=== PATIENT | male | born 1950 | race African-American/Black ===

== ENCOUNTER 2020-10-18 08:25 | Outpatient (REF) | payer BC, SELFPAY ==
[2020-10-18 09:05] LABS: MANUAL DIFF FLAG NO
[2020-10-18 09:08] LABS: Basophils Percent Auto 0.5 % (0-2); Eosinophils Absolute Auto 0.1 X10*3/uL (0.0-0.4); Eosinophils Percent Auto 3.5 % (0-4); Hematocrit 36.5 % (42-52); Imm Gran Abs Auto 0.01 X10*3/uL (0.00-0.03); Imm Gran Pct Auto 0.3 % (0.0-0.4); Lymphocytes Absolute Auto 1.3 X10*3/uL (1.2-4.9); Lymphocytes Percent Auto 35.3 % (20-40); Mean Corpuscular HGB Conc 32.9 g/dl (31.0-36.0); Mean Corpuscular Volume 94.3 fL (80-98); Mean Platelet Volume 12.1 fL (9.4-12.4); Monocytes Absolute Auto 0.3 X10*3/uL (0.1-1.2); Monocytes Percent Auto 7.9 % (2-11); Neutrophils Absolute Auto 1.9 X10*3/uL (2.0-8.3); Neutrophils Percent Auto 52.5 % (45-73); Platelet Count 128 X10*3/uL (160-400); Red Blood Count 3.87 X10*6/uL (4.60-5.80); Red Cell Distribution Width 12.3 % (11.0-16.0); White Blood Count 3.7 X10*3/uL (4.8-10.8)
[2020-10-18 09:37] LABS: Alanine Aminotransferase 16 U/L (0-40); Albumin Level 4.6 g/dL (3.5-5.0); Alkaline Phosphatase 50 U/L (39-117); Anion Gap 12 (12-20); Aspartate Amino Transferase 23 U/L (5-37); Bilirubin Total 0.5 mg/dL (0.0-1.0); Blood Urea Nitrogen 18 mg/dL (9-16); Calcium 8.8 mg/dL (8.4-10.2); Carbon Dioxide 29 mmol/L (22-29); Chloride 105 mmol/L (96-108); Cholesterol 140 mg/dL; Estimated Glomerular Filt Rate 52; Glucose Fasting 97 mg/dL (60-99); HDL Cholesterol 61 mg/dL; LDL Cholesterol Calculated 69 mg/dl; Potassium 5.2 mmol/l (3.3-5.1); Sodium 141 mmol/L (135-145); Total Protein 7.2 g/dL (6.5-8.0); Triglycerides 51 mg/dL
[2020-10-18 09:52] LABS: Erythrocyte Sedimentation Rate 18 MM/HR (0-15)
[2020-10-18 09:55] LABS: Glucose Urine UA NEG (NEG); Leukocyte Esterase Urine NEG (NEG); Nitrite Urine NEG (NEG); Urine Blood 1+ (NEG); Urine Ketones NEG (NEG); Urine Protein NEG (NEG-TRACE)
[2020-10-18 09:58] LABS: Appearance Urine CLEAR; Color Urine YELLOW
[2020-10-18 10:41] LABS: WBC Urine 0 /HPF (0-4)
[2020-10-18 10:42] LABS: Squamous Epithelial Cell Urine 1+ /LPF
== END 2020-10-18 08:26 | disposition home or self-care (01) ==
LOC: HO.LAB 08:25
PROVIDERS: PCP Internal Medicine; Visit Provider Internal Medicine
DX: E78.5 Hyperlipidemia, unspecified (principal); D61.818 Other pancytopenia; M16.0 Bilateral primary osteoarthritis of hip; K21.9 Gastro-esophageal reflux disease without esophagitis
CPT/HCPCS: 36415; 80053; 80061; 81001; 85025; 85652

== ENCOUNTER → 2021-01-09 08:19 | Outpatient (BNVA) | payer BC, SELFPAY | PROVIDERS: Visit Provider Orthopaedic Surgery ==

== ENCOUNTER → 2021-02-20 09:51 | Outpatient (BNVA) | payer BC, SELFPAY | PROVIDERS: PCP Internal Medicine; Visit Provider Orthopaedic Surgery | DX: Z01.812 Encounter for preprocedural laboratory examination (principal); Z01.810 Encounter for preprocedural cardiovascular examination ==

== ENCOUNTER 2021-02-23 08:19 | Outpatient (REF) | payer BC, SELFPAY ==
--- NOTE | 2021-02-23 08:26 | ECG_ITS ---
Test Reason : Z01.810 PREOP Blood Pressure : / mmHG Vent. Rate : 061 BPM Atrial Rate : 061 BPM P-R Int : 158 ms QRS Dur : 086 ms QT Int : 404 ms P-R-T Axes : 069 015 050 degrees QTc Int : 406 ms Normal sinus rhythm ST elevation, consider early repolarization Otherwise normal EKG When compared with ECG of 17-FEB-2014 09:40, No significant changes seen Referred By: Yogesh Stevens Electronically Signed By:CHRISTIAN GALLAGHER
[2021-02-23 10:07] LABS: MANUAL DIFF FLAG NO
[2021-02-23 10:21] LABS: Basophils Percent Auto 0.5 % (0-2); Eosinophils Absolute Auto 0.2 X10*3/uL (0.0-0.4); Eosinophils Percent Auto 4.7 % (0-4); Hematocrit 35.4 % (42-52); Hemoglobin 11.7 g/dl (14.0-18.0); Imm Gran Abs Auto 0.01 X10*3/uL (0.00-0.03); Imm Gran Pct Auto 0.3 % (0.0-0.4); Lymphocytes Absolute Auto 1.5 X10*3/uL (1.2-4.9); Lymphocytes Percent Auto 41.4 % (20-40); Mean Corpuscular HGB Conc 33.1 g/dl (31.0-36.0); Mean Corpuscular Hemoglobin 30.9 pg (27.0-33.0); Mean Corpuscular Volume 93.4 fL (80-98); Monocytes Absolute Auto 0.3 X10*3/uL (0.1-1.2); Monocytes Percent Auto 8.8 % (2-11); Neutrophils Absolute Auto 1.6 X10*3/uL (2.0-8.3); Neutrophils Percent Auto 44.3 % (45-73); Platelet Count 115 X10*3/uL (160-400); Red Blood Count 3.79 X10*6/uL (4.60-5.80); Red Cell Distribution Width 12.3 % (11.0-16.0); White Blood Count 3.7 X10*3/uL (4.8-10.8)
[2021-02-23 10:56] LABS: Alanine Aminotransferase 20 U/L (0-40); Albumin Level 4.3 g/dL (3.5-5.0); Alkaline Phosphatase 48 U/L (39-117); Anion Gap 14 (12-20); Aspartate Amino Transferase 25 U/L (5-37); Bilirubin Total 0.7 mg/dL (0.0-1.0); Blood Urea Nitrogen 13 mg/dL (9-16); Calcium 8.5 mg/dL (8.4-10.2); Carbon Dioxide 28 mmol/L (22-29); Chloride 104 mmol/L (96-108); Cholesterol 120 mg/dL; Estimated Glomerular Filt Rate 60; Glucose Fasting 93 mg/dL (60-99); HDL Cholesterol 51 mg/dL; LDL Cholesterol Calculated 56 mg/dl; Lipase 13 U/L (8-78); Potassium 4.2 mmol/L (3.3-5.1); Sodium 142 mmol/L (135-145); Total Protein 6.9 g/dL (6.5-8.0); Triglycerides 68 mg/dL
== END 2021-02-23 08:20 | disposition home or self-care (01) ==
LOC: HO.LAB 08:19
PROVIDERS: Absent Provider Orthopaedic Surgery; PCP Internal Medicine; Visit Provider Internal Medicine
DX: Z01.812 Encounter for preprocedural laboratory examination (principal); Z01.810 Encounter for preprocedural cardiovascular examination; E78.00 Pure hypercholesterolemia, unspecified; I10 Essential (primary) hypertension; G89.29 Other chronic pain; R10.84 Generalized abdominal pain; D61.818 Other pancytopenia; I25.118 Atherosclerotic heart disease of native coronary artery with other forms of angina pectoris; K21.9 Gastro-esophageal reflux disease without esophagitis
CPT/HCPCS: 36415; 80048; 80053; 80061; 83690; 83721; 84443; 85025; 93005

== ENCOUNTER 2021-02-24 11:40 | Outpatient (REF) | payer BC, SELFPAY ==
[2021-02-24 12:17] LABS: Glucose Urine UA NEG (NEG); Leukocyte Esterase Urine NEG (NEG); Nitrite Urine NEG (NEG); Urine Blood TRACE (NEG); Urine Ketones NEG (NEG); Urine Protein NEG (NEG-TRACE)
[2021-02-24 12:20] LABS: Appearance Urine CLEAR; Color Urine YELLOW
[2021-02-24 12:27] LABS: Squamous Epithelial Cell Urine TRACE /LPF; WBC Urine 0 /HPF (0-4)
== END 2021-02-24 11:41 | disposition home or self-care (01) ==
LOC: HO.LNP 11:40
PROVIDERS: Visit Provider Internal Medicine
DX: Z01.818 Encounter for other preprocedural examination (principal); D61.818 Other pancytopenia; I10 Essential (primary) hypertension; E78.5 Hyperlipidemia, unspecified; I25.10 Atherosclerotic heart disease of native coronary artery without angina pectoris; K21.9 Gastro-esophageal reflux disease without esophagitis
CPT/HCPCS: 81001; 81003

== ENCOUNTER 2021-03-13 12:33 | Outpatient (REF) | payer BC, SELFPAY ==
--- NOTE | ~2021-03-13 | XR_ITS ---
EXAMINATION: XR HIP, RIGHT CLINICAL INFORMATION: Bilateral primary osteoarthritis of hip COMPARISON: Pelvis 10/23/2019 TECHNIQUE: An AP view of the pelvis and AP and frog-lateral views of the right hip. FINDINGS: Mineralization is normal. There is no fracture or dislocation. There is severe joint space narrowing in the hip with mild deformity of the femoral head and flattening of the superior acetabulum. There is subchondral sclerosis and marginal osteophyte formation. No soft tissue abnormality is appreciated. The left hip joint space is relatively preserved. XR/XR hip RT w PEL1V IMPRESSION: Advanced degenerative arthritis in the right hip appears stable.
== END 2021-03-13 12:34 | disposition home or self-care (01) ==
LOC: HO.HOSX 12:33
PROVIDERS: PCP Internal Medicine; Visit Provider Physician Assistant
DX: Z01.812 Encounter for preprocedural laboratory examination (principal); M16.0 Bilateral primary osteoarthritis of hip; M17.0 Bilateral primary osteoarthritis of knee; E78.00 Pure hypercholesterolemia, unspecified
CPT/HCPCS: 73502

== ENCOUNTER 2021-03-21 06:46 | Inpatient (IN) | payer BC, SELFPAY ==
--- NOTE | 2021-03-07 11:57 | HO.ANESPROP2 ---
Documented by User: Judi Garcia 03/17/21 08:26 HPI - Anesthesia Eval Consult details Narrative: 70yo M for Right Hip Total Replacement PCP Cleared Cardiac cleared BP up at [facility] - pt was rushing to make appointment. All previous BP readings wnl Recent tick bite with abx tx, repeat Lyme preop was negative PMFSH Active Problems Active Problems: All Active Problems (Updated 03/06/21 @ 09:51 by Kingsley Villar MD) Tinea pedis (Acute) Tick bite (Acute) Preoperative examination (Acute) Chronic generalized abdominal pain (Acute) Tinnitus, bilateral (Acute) Primary osteoarthritis of knees, bilateral (Acute) Primary osteoarthritis of both hips (Acute) Pancytopenia (Acute) GERD without esophagitis (Acute) Pure hypercholesterolemia (Acute) Benign essential hypertension (Acute) Coronary artery disease (Acute) Past Medical History Medical History Benign essential hypertension Chronic generalized abdominal pain Coronary artery disease COVID-19 vaccine series completed GERD without esophagitis Pancytopenia Primary osteoarthritis of both hips Primary osteoarthritis of knees, bilateral Pure hypercholesterolemia Tick bite of foot Tinnitus, bilateral Family History Family History Father No problems noted. Mother No problems noted. Surgical History Surgical History History of cardiac catheterization History of esophagogastroduodenoscopy (EGD) Hx of colonoscopy S/P cardiac catheterization S/P right coronary artery (RCA) stent placement Social History Social History Are you a primary career technology teacher to a significant other at home: No Do you presently have visiting nurse or other home services: No Alcohol intake: never Patient Tobacco Use Status: Never used Tobacco Use of substances other than those prescribed or required for medical reasons: No Have you been hit, kicked, punched, or otherwise hurt by someone within the past year? If so, by whom?: No Are you DNR?: No Advance Directives: No Advance Directives Information Provided: No Advance Directives on File: No Recently lost weight without trying: No Eating poorly because of decreased appetite: No Nutrition Risks: No Nutritional Risk Poor oral hygiene: No Narrative Narrative: No recent illness No SOB/CP within limits of pain. Meds Allergies Allergy/AdvReac Type Severity Reaction Status Date / Time No Known Allergies Allergy Unknown U Verified 03/13/21 12:35 Home Medications Medication Instructions Recorded Confirmed Last Taken Type aspirin 81 mg tablet,delayed 81 mg PO DAILY 02/06/21 03/07/21 Unknown History release isosorbide mononitrate 120 mg 120 mg PO DAILY 02/06/21 03/07/21 Unknown History tablet,extended release 24 hr Exam Exam Date and Time: March 07, 2021 1157 Pertinent Lab Results Pertinent Lab Results: Laboratory Tests 02/23/21 02/23/21 Unknown Unknown WBC 3.7 L Hgb 11.7 L Hct 35.4 L Plt Count 115 L Sodium 142 Potassium 4.2 Chloride 104 Carbon Dioxide 28 BUN 13 Creatinine 1.20 Laboratory Tests 03/13/21 03/13/21 13:30 13:30 Lyme Screen IgG & IgM <0.90 Blood Type O Positive Antibody Screen NEGATIVE Narrative Narrative: EKG 02/2021 Vent. Rate : 061 BPM Atrial Rate : 061 BPM P-R Int : 158 ms QRS Dur : 086 ms QT Int : 404 ms P-R-T Axes : 069 015 050 degrees QTc Int : 406 ms Normal sinus rhythm ST elevation, consider early repolarization Otherwise normal EKG When compared with ECG of 17-FEB-2014 09:40, No significant changes seen Repeat cardiac cath done on 12/26/2020 by [facility] Cardiology showed minimal coronary disease of the RCA that is unchanged from his previous cath done in 2011 and the diagonal stent inserted previously remains widely patent. Was recommended to continue with lifelong low dose Aspirin Tx and aggressive risk factor modification and advised Airway Mallampati Class: I TM Dist: >3cm Neck ROM: Full Loose/Missing/Broken Teeth: Yes (Right lower side missing) Heart: RRR Lungs: CTAB Assessment and Plan Assessment Anesthesia Assessment: Anesthesia Plan Discussed and PAT Visit Documented by User: Caden Little MD 03/21/21 07:31 [facility] Past Medical History Medical History Benign essential hypertension Chronic generalized abdominal pain Coronary artery disease COVID-19 vaccine series completed GERD without esophagitis Pancytopenia Primary osteoarthritis of both hips Primary osteoarthritis of knees, bilateral Pure hypercholesterolemia Tick bite of foot Tinnitus, bilateral Family History Family History Father No problems noted. Mother No problems noted. Surgical History Surgical History History of cardiac catheterization History of esophagogastroduodenoscopy (EGD) Hx of colonoscopy S/P cardiac catheterization S/P right coronary artery (RCA) stent placement Social History Social History Are you a primary career technology teacher to a significant other at home: No Do you presently have visiting nurse or other home services: No Alcohol intake: never Patient Tobacco Use Status: Never used Tobacco Use of substances other than those prescribed or required for medical reasons: No Have you been hit, kicked, punched, or otherwise hurt by someone within the past year? If so, by whom?: No Are you DNR?: No Advance Directives: No Advance Directives Information Provided: No Advance Directives on File: No Recently lost weight without trying: No Eating poorly because of decreased appetite: No Nutrition Risks: No Nutritional Risk Poor oral hygiene: No Meds Allergies Allergy/AdvReac Type Severity Reaction Status Date / Time No Known Allergies Allergy Unknown U Verified 03/13/21 12:35 Home Medications Medication Instructions Recorded Confirmed Last Taken Type aspirin 81 mg tablet,delayed 81 mg PO DAILY 02/06/21 03/07/21 Unknown History release isosorbide mononitrate 120 mg 120 mg PO DAILY 02/06/21 03/07/21 Unknown History tablet,extended release 24 hr Assessment and Plan Assessment Anesthesia Assessment: Anesthesia Plan Discussed and Chart Reviewed Final Anesthetic Review NPO: Yes ASA Class: III Final Preanesthetic Review: No Changes in Pt Med Stat, Meds/Allgs Chart Reviewed, Consent Obtained/Reviewed and Anes Risks/Benef Reviewed Patient Risk: Intermediate Procedure Risk: Intermediate Anesthetic Plan Anesthetic Plan: GA Disposition: Standard PACU
[2021-03-07 11:58] VITALS: BP 179/81; PULSE 56; RESP 20; BMI 25.5
[2021-03-08 08:50] LABS: MRSA Nasal PCR NEGATIVE (Negative); SA Nasal PCR NEGATIVE (Negative)
[2021-03-13 14:27] LABS: Glucose Urine UA NEG (NEG); Leukocyte Esterase Urine NEG (NEG); Nitrite Urine NEG (NEG); Specific Gravity - Urine <= 1.005 (1.005-1.025); Urine Blood 1+ (NEG); Urine Ketones NEG (NEG); Urine Protein NEG (NEG-TRACE)
[2021-03-13 14:35] LABS: Appearance Urine CLEAR; Color Urine YELLOW
[2021-03-13 14:36] LABS: MANUAL DIFF FLAG NO
[2021-03-13 14:37] LABS: Squamous Epithelial Cell Urine TRACE /LPF; WBC Urine 0-2 /HPF (0-4)
[2021-03-13 14:45] LABS: Basophils Percent Auto 0.3 % (0-2); Eosinophils Absolute Auto 0.1 X10*3/uL (0.0-0.4); Eosinophils Percent Auto 2.1 % (0-4); Hematocrit 34.8 % (42-52); Hemoglobin 11.8 g/dl (14.0-18.0); Imm Gran Abs Auto 0.02 X10*3/uL (0.00-0.03); Imm Gran Pct Auto 0.5 % (0.0-0.4); Lymphocytes Absolute Auto 1.5 X10*3/uL (1.2-4.9); Lymphocytes Percent Auto 40.4 % (20-40); Mean Corpuscular HGB Conc 33.9 g/dl (31.0-36.0); Mean Corpuscular Hemoglobin 31.5 pg (27.0-33.0); Mean Corpuscular Volume 92.8 fL (80-98); Mean Platelet Volume 12.8 fL (9.4-12.4); Monocytes Absolute Auto 0.3 X10*3/uL (0.1-1.2); Monocytes Percent Auto 8.3 % (2-11); Neutrophils Absolute Auto 1.8 X10*3/uL (2.0-8.3); Neutrophils Percent Auto 48.4 % (45-73); Platelet Count 161 X10*3/uL (160-400); Red Blood Count 3.75 X10*6/uL (4.60-5.80); Red Cell Distribution Width 12.5 % (11.0-16.0); White Blood Count 3.7 X10*3/uL (4.8-10.8)
[2021-03-15 07:01] LABS: Lyme Abs Screen <0.90 index
[2021-03-21] VITALS (20 sets, daily range): BP systolic 115–155; BP diastolic 53–79; PULSE 50–84; RESP 12–18; TEMP 36.2–36.6; O2SAT 97–100
--- NOTE | ~2021-03-21 | XR_ITS ---
EXAMINATION: XR PELVIS CLINICAL INFORMATION: Post right hip replacement COMPARISON: Previous x-ray 03/13/2021 TECHNIQUE: AP view of the pelvis. FINDINGS: There is a new right hip replacement in satisfactory position. No fracture or dislocation is seen. There are postoperative changes to the soft tissues. There is mild arthritis at the left hip joint and lower lumbar spine. XR/XR pelvis 1-2V IMPRESSION: Satisfactory appearance of right hip replacement..
[2021-03-21 06:53] LABS: COVID-19 Test Negative (Negative)
[2021-03-21] MEDS: Gabapentin 600 MG TABLET PO (06:56)
[2021-03-21] MEDS: oxyCODONE HCl ER 10 MG TAB.ER.12H PO ×2 (06:57→20:14)
[2021-03-21] MEDS: Lactated Ringers 1,000 ML 100 ML IVCONT (06:59)
--- NOTE | 2021-03-21 07:20 | MHC.SHP ---
Pre-Procedural Eval Section A The patient is an INPATIENT: No Changes since office visit: Yes Patient answered all questions; No Cold of Flu in the past 2 weeks, No New Medical Problems and No Changes in Medication The History & Physical has been completed within 30 days and I have reviewed it.: Yes Section B Chief Complaint: hip replacement Allergies: Allergies Allergy/AdvReac Type Severity Reaction Status Date / Time No Known Allergies Allergy Unknown U Verified 03/13/21 12:35 Plan I have reviewed the history and physical and performed a pertinent physical examination on my patient. No changes have occurred unless specified.
--- NOTE | 2021-03-21 09:57 | P.OP_ITS ---
Operative Note Operative Note Date of Service: 03/21/21 Narrative: Pre-op diagnosis: right hip OA Post-op diagnosis: same Procedure: right GT Implants: Darci trident2 52 with 20 deg lipped liner with accolade2#4 127 deg with .2.5 26 ceramic head Surgeon: Yogesh Stevens MD Anesthesia: GETA Was an Lead Sustainability Specialist used for this Procedure?: Yes Lead Sustainability Specialist: Johnathan Phipps Estimated blood loss (mL): 200 IV fluids (mL): 1,000 Pathology: other Condition: stable Disposition: PACU Attending MD: Yogesh Stevens Lead Sustainability Specialist: MARISOL Phipps Pre-operative disgnosis: Left hip OA Post op diagnosis: same Procedure performed; Left GT Anesthesia: Blood loss: Fluids: Implants: Complications: Indications: Procedure in detail: Patient was brought into the operating room and placed in a left lateral decubitus position. All bony prominences were well padded and the limb was prepped and draped in standard sterile fashion. Time-out was called to identify proper site procedure proper surgeon IV antibiotics and 1 g of trans to make acid were administered. I began by making a curvilinear incision over the p osterolateral aspect of the greater trochanter. Dissection was taken down to the tensor fascia which was incised in line with the incision and a Charnley retractor was placed. Hip was internally rotated and the external rotators were identified. The vessels were cauterized and a full-thickness capsular/external rotator layer was developed starting just proximal to the piriformis. Dull Hohmann retractor was placed underneath the neck in the hip was dislocated. The head was eburnated and deformed. A neck cut was made 1 cm proximal to the lesser trochanter and the head and neck were removed and measured on the back table. Placed my anterior-posterior acetabular retractors and performed a labrectomy. I removed the fovea with cautery and then sequentially reamed up to a size __52_ and impacted the cup in at 45 degrees of inclination and 25 degrees of version. It was solidly fixed. I then placed a 20 degree posterior lipped liner and turned my attention to the femur. All I used cautery to identify the piriformis start site and used this as a starting point for my jaydenie cutter. I then used a Charnley awl to identify the canal and a curved curette to remove the lateral bone. I then sequentially broached in the patient's natural version to a size __#4__ and placed my trial implants. I took the hip through range of motion with a +0 and + 2.5 head and the hip was stable with appropriate length. Therefore I removed all instrumentation copiously irrigated and placed my final femoral implant. I again took the hip through range of motion and was satisfied with the stability and length and rain using a +2.5 head and so my final femoral head was placed. I then irrigated for 3 minutes with iodine and placed 1 g of local TXA. I then performed a capsular closure with FiberWire, Misael's fascia with 0 Vicryl, subcuticular with 2-0 vicryl and skin with ariel. Patient was placed into a sterile dressing. Radiographs were obtained at the completion of the case and I was satisfied with the component position. Patient was extubated brought to the recovery room in stable condition.
--- NOTE | 2021-03-21 12:47 | P.CONIM_ITS ---
History of Present Illness Data of Consult Service Date: 03/21/21 Requesting physician: Yogesh Stevens Primary Care Provider: Kingsley Villar MD [facility] Reason for consult: medical management 70-year-old man admitted by Orthopedic surgery and is status post left total knee arthroplasty. Surgery was unremarkable. Patient's vital signs are stable. Eating and drinking without any nausea or vomiting. He has no acute medical complaints time. He is currently resting in bed. Review of Systems Review of Systems: Denies any recent fever chills or decrease in appetite respiratory denies any shortness of breath coverage production cardiovascular is adjustment of any PND or edema gastrointestinal denies any dysphagia abdominal pain nausea vomiting or diarrhea genitourinary denies any dysuria frequency or hematuria musculoskeletal Left hip pain neuropsych denies any weakness or seizures all other systems reviewed are negative [facility] Medical History Benign essential hypertension Chronic generalized abdominal pain Coronary artery disease COVID-19 vaccine series completed GERD without esophagitis Pancytopenia Primary osteoarthritis of both hips Primary osteoarthritis of knees, bilateral Pure hypercholesterolemia Tick bite of foot Tinnitus, bilateral Family History Father No problems noted. Mother No problems noted. Surgical History History of cardiac catheterization History of esophagogastroduodenoscopy (EGD) Hx of colonoscopy S/P cardiac catheterization S/P right coronary artery (RCA) stent placement Social History Household Members: Spouse Housing: House Are you a primary healthcare recruiter to a significant other at home: No Do you presently have visiting nurse or other home services: No Alcohol intake: never Patient Tobacco Use Status: Never used Tobacco Use of substances other than those prescribed or required for medical reasons: No Have you been hit, kicked, punched, or otherwise hurt by someone within the past year? If so, by whom?: No Do you feel safe in your current relationship?: Yes Is there a partner from a previous relationship who is making you feel unsafe n ow?: No Are you made to feel afraid or neglected: No Are you DNR?: No Advance Directives: No Advance Directives Information Provided: No Advance Directives on File: No Do you have thoughts of harming others: None Do you have a plan to hurt others: No Plan Recently lost weight without trying: No Eating poorly because of decreased appetite: No Nutrition Risks: No Nutritional Risk Poor oral hygiene: No Meds Allergies Allergy/AdvReac Type Severity Reaction Status Date / Time No Known Allergies Allergy Unknown U Verified 03/13/21 12:35 Active Medications: Current Medications Generic Name Dose Route Start Last Admin Trade Name Freq PRN Reason Stop Dose Admin Acetaminophen 650 mg 03/21/21 11:46 Acetaminophen 325 Mg Tablet PO Q6H PRN Pain, Mild (Pain Scale 1-3) Celecoxib 200 mg 03/21/21 21:00 Celecoxib 200 Mg Capsule PO BID [facility] Docusate Sodium 100 mg 03/21/21 21:00 Docusate Sodium 100 Mg Capsule PO BID [facility] Hydromorphone HCl 0.25 mg 03/21/21 11:46 Hydromorphone Hcl 0.5 Mg/0.5 Ml Syringe IVPUSH Q4H PRN Pain, Severe (Pain Scale 7-10) Dextrose/Sodium Chloride 1,000 mls @ 80 mls/hr 03/21/21 12:00 D51/2ns IVCONT .[id number] [facility] Cefazolin Sodium/Dextrose 2 gm in 50 mls @ 100 mls/hr 03/21/21 14:00 Ancef IV 03/21/21 14:29 POSTOP ONE Naloxone HCl 0.2 mg 03/21/21 11:46 Naloxone Hcl 0.4 Mg/Ml Vial IVPUSH Q2M PRN Excessive sedation or RR < 8 Oxycodone HCl 5 mg 03/21/21 11:46 Oxycodone Hcl Immed Release 5 Mg Tablet PO Q4H PRN Pain, Moderate (Pain Scale 4-6 Oxycodone HCl 10 mg 03/21/21 21:00 Oxycodone Hcl Er 10 Mg Tab.Er.12h PO BID [facility] Sodium Chloride 3 ml 03/21/21 16:00 0.9 % Sodium Chloride Flush 3 Ml Syringe IVFLUSH QSHIFT [facility] Home Medications Medication Instructions Recorded Confirmed Last Taken Type aspirin 81 mg tablet,delayed 81 mg PO DAILY 02/06/21 03/07/21 Unknown History release isosorbide mononitrate 120 mg 120 mg PO DAILY 02/06/21 03/07/21 Unknown History tablet,extended release 24 hr Physical Exam Vital Signs and Narrative: Vital Signs: Last Vital Signs Temp 97.4 F 03/21/21 11:46 Pulse 56 03/21/21 12:22 Resp 16 03/21/21 12:22 BP 126/72 03/21/21 12:22 Pulse Ox 100 03/21/21 12:22 Body Mass Index 25.5 Appearing in no acute distress head is normocephalic atraumatic eyes pupils are PERRLA sclera is anicteric mouth throat mucous membranes are intact and moist neck is supple no lymphadenopathy, no JVD noted lung sounds are clear to auscultation heart regular rate rhythm, clear S1, S2 positive bowel sounds, abdomen is soft, nontender neuro patient is alert x3, no focal deficits MSK surgical dressing intact, incision not visualized Results Labs CBC and Chem 7: 03/13/21 13:30 Labs: Laboratory Results - last 24 hr 03/21/21 06:16 COVID-19 (ANNIKA) Negative COVID-19 Clin Com See Note Imaging Radiologist's Impressions: Impressions Pelvis X-Ray 03/21/21 08:47 IMPRESSION: Satisfactory appearance of right hip replacement.. Assessment and Plan (1) Osteoarthritis of right hip: Status: Acute 70-year-old man admitted to Orthopedic surgery and is status post left total hip arthroplasty. NO acute medical complaints. Left total hip arthroplasty. -management as per surgical team -pain management Hypertension. Good BP control -Hold BB d/t bradycardia CAD -Hold BB for now with bradycardia post op DVT prophylaxis with as per surgical team Full code Attending: Dr. Summers
[2021-03-21] MEDS: Dextrose 5 % and 0.45 % NaCl 1,000 ML 80 ML IVCONT (12:55)
[2021-03-21] MEDS: ondansetron HCL 4 MG/2 ML VIAL IVPUSH (13:11)
[2021-03-21] MEDS: ceFAZolin Sodium/Dextrose,Iso 2 GM/50 ML PIGGYBACK IV (14:14)
--- NOTE | 2021-03-21 19:17 | PC.NURSE ---
Late entry: Pt to room via bed around 1200. Aquacell dressing to right hip CDI. minimal c/o pain to hip. Ice applied. tolerating po. at bedside. All needs in reach
[2021-03-21] MEDS: Docusate Sodium 100 MG CAPSULE PO (20:14)
[2021-03-21] MEDS: Celecoxib 200 MG CAPSULE PO (20:14)
[2021-03-21] MEDS: 0.9 % Sodium Chloride Flush 3 ML SYRINGE IVFLUSH (20:15)
[2021-03-21] MEDS: HYDROmorphone HCl 0.5 MG/0.5 ML SYRINGE 0.25 MG IVPUSH (21:55)
[2021-03-21] MEDS: Nitroglycerin 0.4 MG TAB.SUBL SUBLINGUAL (23:55)
[2021-03-22] VITALS (9 sets, daily range): BP systolic 104–150; BP diastolic 50–68; PULSE 62–82; RESP 15–20; TEMP 36–36.9; O2SAT 97–99
[2021-03-22] MEDS: Dextrose 5 % and 0.45 % NaCl 1,000 ML 80 ML IVCONT ×2 (02:53→14:52)
[2021-03-22 05:51] LABS: MANUAL DIFF FLAG NO
[2021-03-22 05:58] LABS: Hematocrit 29.3 % (42-52); Imm Gran Abs Auto 0.03 X10*3/uL (0.00-0.03); Imm Gran Pct Auto 0.4 % (0.0-0.4); Lymphocytes Absolute Auto 0.8 X10*3/uL (1.2-4.9); Mean Corpuscular HGB Conc 34.1 g/dl (31.0-36.0); Mean Corpuscular Hemoglobin 31.5 pg (27.0-33.0); Mean Corpuscular Volume 92.4 fL (80-98); Monocytes Absolute Auto 0.6 X10*3/uL (0.1-1.2); Monocytes Percent Auto 7.6 % (2-11); Neutrophils Absolute Auto 5.9 X10*3/uL (2.0-8.3); Platelet Count 122 X10*3/uL (160-400); Red Blood Count 3.17 X10*6/uL (4.60-5.80); Red Cell Distribution Width 12.4 % (11.0-16.0); White Blood Count 7.2 X10*3/uL (4.8-10.8)
[2021-03-22 06:21] LABS: Anion Gap 11 (12-20); Blood Urea Nitrogen 19 mg/dL (9-16); Calcium 8.5 mg/dL (8.4-10.2); Carbon Dioxide 31 mmol/L (22-29); Chloride 102 mmol/L (96-108); Creatinine Clr Calc Pharmacy 55.1; Estimated Glomerular Filt Rate 59; Glucose Fasting 122 mg/dL (60-99); Potassium 4.5 mmol/L (3.3-5.1); Sodium 139 mmol/L (135-145)
[2021-03-22] MEDS: oxyCODONE HCl Immed Release 5 MG TABLET PO (07:27)
--- NOTE | 2021-03-22 08:30 | P.PNOP_ITS ---
Subjective Subjective Date of Service: 03/22/21 Interval history: Postop day 1 status post right total hip arthroplasty No overnight events. Resting comfortably in bed. Has not been out of bed. Denies shortness of breath chest pain or palpitations. Physical Exam Vital Signs: Vital Signs: Last Vital Signs Temp 98.5 F 03/22/21 04:00 Pulse 73 03/22/21 08:13 Resp 16 03/22/21 04:00 BP 150/68 H 03/22/21 08:13 Pulse Ox 99 03/22/21 08:13 Body Mass Index 25.5 Const: General: cooperative, healthy appearing and no acute distress Resp: Effort & Inspection: normal respiratory effort and able to speak in complete sentences Cardio: Rate: regular rate Peripheral pulses: Peripheral pulses 2+ throughout GI: Palpation (GI): Soft to palpation Skin: General skin exam: no rashes or lesions noted Extrem: Other: Bandage clean dry and intact. No erythema or effusion. Calf supple nontender. Neurovascularly intact. Progress Note: A&P Assessment and plan (1) Status post total hip replacement, right: Status: Acute Assessment and Plan: * Continue pain mgmnt * Begin Aspirin for dvt ppx * begin PT for right GT posterior precautions * Dispo planning-Pending PT eval, pain mgmnt Fall Risk Details Current Medications: Current Medications Generic Name Dose Route Start Last Admin Trade Name Freq PRN Reason Stop Dose Admin Acetaminophen 650 mg 03/21/21 11:46 Acetaminophen 325 Mg Tablet PO Q6H PRN Pain, Mild (Pain Scale 1-3) Aspirin 325 mg 03/22/21 09:00 Aspirin 325 Mg Tablet PO BID [facility] Atorvastatin Calcium 80 mg 03/22/21 09:00 Atorvastatin Calcium 80 Mg Tablet PO DAILY ERIC Celecoxib 200 mg 03/21/21 21:00 03/21/21 20:14 Celecoxib 200 Mg Capsule PO 200 mg BID ERIC Administration Docusate Sodium 100 mg 03/21/21 21:00 03/21/21 20:14 Docusate Sodium 100 Mg Capsule PO 100 mg BID ERIC Administration Hydromorphone HCl 0.25 mg 03/21/21 11:46 03/21/21 21:55 Hydromorphone Hcl 0.5 Mg/0.5 Ml Syringe IVPUSH 0.25 mg Q4H PRN Administration Pain, Severe (Pain Scale 7-10) Dextrose/Sodium Chloride 1,000 mls @ 80 mls/hr 03/21/21 12:00 03/22/21 02:53 D51/2ns IVCONT 80 mls/hr .[id number] ERIC Administration Isosorbide Mononitrate 120 mg 03/22/21 09:00 Isosorbide Mononitrate 60 Mg Tab.Er.24h PO DAILY [facility] Protocol Naloxone HCl 0.2 mg 03/21/21 11:46 Naloxone Hcl 0.4 Mg/Ml Vial IVPUSH Q2M PRN Excessive sedation or RR < 8 Nitroglycerin 0.4 mg 03/21/21 17:01 03/21/21 23:55 Nitroglycerin 0.4 Mg Tab.Subl SUBLINGUAL 0.4 mg Q5M PRN Administration chest pain Nystatin/Triamcinolone Acetonide 1 appl 03/21/21 21:00 03/21/21 22:49 Nystatin/Triamcinolone Cream 15 Gm Tube TOPICAL Not Given BID [facility] Ondansetron HCl 4 mg 03/21/21 13:04 03/21/21 13:11 Ondansetron Hcl 4 Mg/2 Ml Vial IVPUSH 4 mg Q8H PRN Administration nausea Oxycodone HCl 5 mg 03/21/21 11:46 03/22/21 07:27 Oxycodone Hcl Immed Release 5 Mg Tablet PO 5 mg Q4H PRN Administration Pain, Moderate (Pain Scale 4-6 Oxycodone HCl 10 mg 03/21/21 21:00 03/21/21 20:14 Oxycodone Hcl Er 10 Mg Tab.Er.12h PO 10 mg BID ERIC Administration Sodium Chloride 3 ml 03/21/21 16:00 03/21/21 20:15 0.9 % Sodium Chloride Flush 3 Ml Syringe IVFLUSH 3 ml QSHIFT ERIC Administration Sodium Chloride 3 ml 03/21/21 16:00 03/22/21 01:48 0.9 % Sodium Chloride Flush 3 Ml Syringe IVFLUSH Not Given QSHIFT [facility] Time Spent With Patient Time: Total time spent is greater than 50% in coordination of care (as documented) at patient's floor/unit and/or counseling patient: Time with patient: less than 15 minutes Procedures Date of Service Date of Service: 03/22/21
[2021-03-22] MEDS: Aspirin 325 MG TABLET PO ×2 (08:51→20:07)
[2021-03-22] MEDS: Docusate Sodium 100 MG CAPSULE PO ×2 (08:52→20:07)
[2021-03-22] MEDS: Celecoxib 200 MG CAPSULE PO ×2 (08:52→20:07)
[2021-03-22] MEDS: Isosorbide Mononitrate 60 MG TAB.ER.24H 120 MG PO (08:53)
[2021-03-22] MEDS: oxyCODONE HCl ER 10 MG TAB.ER.12H PO ×2 (08:53→20:07)
[2021-03-22] MEDS: Nystatin/Triamcinolone Cream 15 GM TUBE 1 APPL TOPICAL ×2 (08:53→20:11)
--- NOTE | 2021-03-22 09:54 | MHC.CM.PN ---
Addendum entered by Amina Deleon 03/22/21 15:15: update, per physical thearpist patient did well in afternoon physical theap[ry treatment, requesting patient be discharged home vs acute rehab he will need to be able to master stairs if he does not go to acute rehab. 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 HE HAS NO VNA /NO DME SERVICES IN THE HOME. REVIEWED WITH PATIENT ACUTE REHAB FACILITIES AND HE CHOSE [facility] IN [place]. INIATED REFERRAL TO [facility] [facility] WITH ANTICIPATED DATE OF DISCHARGE 03/23-01/2021 D/C ACUTE REHAB -INIATED REFERRAL TO [facility] WITH ANTICIPATED D/C DATE -02/[address] LEONARD VILLARREAL TRANSP FAMILY OR BLS/WHEELCHAIR EDUCATED ABOUT THE IMPORTANCE OF HAVING A HCP. CONFIRMED WITH PATIENT THAT HE DOES NOT HAVE MEDICARE
--- NOTE | 2021-03-22 11:41 | HO.POSTANES ---
Post Anesthesia Evaluation Post Anesthesia Evaluation Vital Signs: Vital Signs Temp Pulse Resp BP Pulse Ox 03/22/21 08:53 82 116/54 L 03/22/21 08:13 73 150/68 H 99 03/22/21 08:00 96.9 F 82 20 116/54 L 98 03/22/21 04:00 98.5 F 73 16 150/68 H 99 03/21/21 23:55 62 135/66 03/21/21 23:53 97.8 F 62 16 135/66 97 Anesthesia: General Mental Status: Awake Pain Control: Satisfactory Nausea/Vomiting: None Hydration: Adequate Anesthesia-Related Issues: No Anes. Related Issues
--- NOTE | 2021-03-22 17:56 | HO.PM.IMPN ---
Subjective Subjective Date of Service: 03/22/21 <INNA Gross - Last Filed: 03/22/21 18:06> 03/23/21 <Kishor Summers MD - Last Filed: 03/23/21 18:13> Interval History: Seen and examined this morning Observed sitting in recliner The reports some right hip pain, otherwise no complaints Tolerating regular diet. <INNA Gross - Last Filed: 03/22/21 18:06> Review of Systems Review of Systems: Yes all other systems are reviewed and are negative <INNA Gross - Last Filed: 03/22/21 18:06> Constitutional Constitutional: Denies chills and Denies fever(s) <INNA Gross - Last Filed: 03/22/21 18:06> Cardiovascular Cardiovascular: Denies chest pain <INNA Gross - Last Filed: 03/22/21 18:06> Respiratory Respiratory: Denies cough <INNA Gross - Last Filed: 03/22/21 18:06> Gastrointestinal Gastrointestinal: Denies abdominal pain <INNA Gross - Last Filed: 03/22/21 18:06> Physical Exam Vital Signs: Vital Signs: Last Vital Signs Temp 96.9 F 03/22/21 15:32 Pulse 62 03/22/21 15:32 Resp 20 03/22/21 15:32 BP 106/55 L 03/22/21 15:32 Pulse Ox 99 03/22/21 15:32 Body Mass Index 25.5 <INNA Gross - Last Filed: 03/22/21 18:06> Const: General: alert and awake <INNA Gross - Last Filed: 03/22/21 18:06> Nutritional Appearance: well nourished <INNA Gross Last Filed: 03/22/21 18:06> Orientation/consciousness: patient oriented x3 <INNA Gross Last Filed: 03/22/21 18:06> HENMT: Head: Yes normocephalic and Yes atraumatic <INNA Gross - Last Filed: 03/22/21 18:06> Eyes: Sclerae: sclerae normal <INNA Gross Last Filed: 03/22/21 18:06> Resp: Effort & Inspection: normal respiratory effort and no respiratory distress <INNA Gross Last Filed: 03/22/21 18:06> Cardio: Rate: regular rate <INNA Gross Last Filed: 03/22/21 18:06> Rhythm: regular rhythm <INNA Gross Last Filed: 03/22/21 18:06> GI: Palpation (GI): Soft to palpation and nontender <INNA Gross Last Filed: 03/22/21 18:06> Neuro: General: patient oriented x3 <INNA Gross Last Filed: 03/22/21 18:06> Cranial nerves: Yes CN's II-XII intact bilaterally and Yes Bilaterally intact EOM present <INNA Gross Last Filed: 03/22/21 18:06> Extrem: Other: right hip c/d/i bandage <INNA Gross Last Filed: 03/22/21 18:06> Objective Data Current Medications Generic Name Dose Route Start Last Admin Trade Name Freq PRN Reason Stop Dose Admin Acetaminophen 650 mg 03/21/21 11:46 Acetaminophen 325 Mg Tablet PO Q6H PRN Pain, Mild (Pain Scale 1-3) Aspirin 325 mg 03/22/21 09:00 03/22/21 08:51 Aspirin 325 Mg Tablet PO 325 mg BID ERIC Administration Atorvastatin Calcium 80 mg 03/22/21 09:00 03/22/21 09:02 Atorvastatin Calcium 80 Mg Tablet PO Not Given DAILY ERIC Celecoxib 200 mg 03/21/21 21:00 03/22/21 08:52 Celecoxib 200 Mg Capsule PO 200 mg BID ERIC Administration Docusate Sodium 100 mg 03/21/21 21:00 03/22/21 08:52 Docusate Sodium 100 Mg Capsule PO 100 mg BID ERIC Administration Hydromorphone HCl 0.25 mg 03/21/21 11:46 03/21/21 21:55 Hydromorphone Hcl 0.5 Mg/0.5 Ml Syringe IVPUSH 0.25 mg Q4H PRN Administration Pain, Severe (Pain Scale 7-10) Dextrose/Sodium Chloride 1,000 mls @ 80 mls/hr 03/21/21 12:00 03/22/21 14:52 D51/2ns IVCONT 80 mls/hr .[id number] ERIC Administration Isosorbide Mononitrate 120 mg 03/22/21 09:00 03/22/21 08:53 Isosorbide Mononitrate 60 Mg Tab.Er.24h PO 120 mg DAILY ERIC Administration Protocol Naloxone HCl 0.2 mg 03/21/21 11:46 Naloxone Hcl 0.4 Mg/Ml Vial IVPUSH Q2M PRN Excessive sedation or RR < 8 Nitroglycerin 0.4 mg 03/21/21 17:01 03/21/21 23:55 Nitroglycerin 0.4 Mg Tab.Subl SUBLINGUAL 0.4 mg Q5M PRN Administration chest pain Nystatin/Triamcinolone Acetonide 1 appl 03/21/21 21:00 03/22/21 08:53 Nystatin/Triamcinolone Cream 15 Gm Tube TOPICAL 1 appl BID ERIC Administration Ondansetron HCl 4 mg 03/21/21 13:04 03/21/21 13:11 Ondansetron Hcl 4 Mg/2 Ml Vial IVPUSH 4 mg Q8H PRN Administration nausea Oxycodone HCl 5 mg 03/21/21 11:46 03/22/21 07:27 Oxycodone Hcl Immed Release 5 Mg Tablet PO 5 mg Q4H PRN Administration Pain, Moderate (Pain Scale 4-6 Oxycodone HCl 10 mg 03/21/21 21:00 03/22/21 08:53 Oxycodone Hcl Er 10 Mg Tab.Er.12h PO 10 mg BID ERIC Administration Sodium Chloride 3 ml 03/21/21 16:00 03/22/21 14:54 0.9 % Sodium Chloride Flush 3 Ml Syringe IVFLUSH Not Given QSHIFT ERIC Sodium Chloride 3 ml 03/21/21 16:00 03/22/21 14:54 0.9 % Sodium Chloride Flush 3 Ml Syringe IVFLUSH Not Given QSHIFT ERIC <INNA Gross - Last Filed: 03/22/21 18:06> Labs CBC & Chem 7: : 03/23/21 06:09 03/23/21 06:09 <INNA Gross - Last Filed: 03/22/21 18:06> Assessment and Plan (1) Status post total hip replacement, right: Status: Acute <INNA Gross - Last Filed: 03/22/21 18:06> (2) Osteoarthritis of right hip: Status: Acute <INNA Gross - Last Filed: 03/22/21 18:06> Assessment and Plan: 70-year-old man admitted to Orthopedic surgery and is status post left total hip arthroplasty. NO acute medical complaints. s/p right total hip arthroplasty. -management as per surgical team Hypertension. -resume lower dose of metoprolol CAD -BB initially held for bradycardia, will resume lower dose (on toprol xl 100 daily at baseline) -monitor heart rate closely HLD -continue statin CAD stable. no chest pain -continue imdur, statin -will resume lower dose of beta-ivania Thrombocytopenia Chronic -follow CBC DVT prophylaxis with as per surgical team Full code Attending: Dr. Summers <INNA Gross - Last Filed: 03/22/21 18:06>
[2021-03-23] VITALS (8 sets, daily range): BP systolic 106–149; BP diastolic 55–68; PULSE 71–80; RESP 15–20; TEMP 36.4–36.6; O2SAT 96–100
[2021-03-23] MEDS: Dextrose 5 % and 0.45 % NaCl 1,000 ML 80 ML IVCONT ×2 (03:23→16:26)
[2021-03-23 06:25] LABS: MANUAL DIFF FLAG NO
[2021-03-23 06:40] LABS: Basophils Percent Auto 0.4 % (0-2); Eosinophils Absolute Auto 0.2 X10*3/uL (0.0-0.4); Eosinophils Percent Auto 3.4 % (0-4); Hemoglobin 8.9 g/dl (14.0-18.0); Imm Gran Abs Auto 0.02 X10*3/uL (0.00-0.03); Imm Gran Pct Auto 0.4 % (0.0-0.4); Lymphocytes Absolute Auto 1.1 X10*3/uL (1.2-4.9); Lymphocytes Percent Auto 19.9 % (20-40); Mean Corpuscular Volume 94.1 fL (80-98); Mean Platelet Volume 12.8 fL (9.4-12.4); Monocytes Absolute Auto 0.5 X10*3/uL (0.1-1.2); Monocytes Percent Auto 9.4 % (2-11); Neutrophils Absolute Auto 3.6 X10*3/uL (2.0-8.3); Neutrophils Percent Auto 66.5 % (45-73); Platelet Count 102 X10*3/uL (160-400); Red Blood Count 2.87 X10*6/uL (4.60-5.80); Red Cell Distribution Width 12.7 % (11.0-16.0); White Blood Count 5.3 X10*3/uL (4.8-10.8)
[2021-03-23 06:52] LABS: Anion Gap 10 (12-20); Blood Urea Nitrogen 18 mg/dL (9-16); Calcium 7.9 mg/dL (8.4-10.2); Carbon Dioxide 29 mmol/L (22-29); Chloride 105 mmol/L (96-108); Creatinine Clr Calc Pharmacy 56.5; Estimated Glomerular Filt Rate > 60; Glucose Fasting 124 mg/dL (60-99); Potassium 4.1 mmol/L (3.3-5.1); Sodium 140 mmol/L (135-145)
[2021-03-23] MEDS: Aspirin 325 MG TABLET PO ×2 (08:43→20:14)
[2021-03-23] MEDS: oxyCODONE HCl ER 10 MG TAB.ER.12H PO ×2 (08:44→20:15)
[2021-03-23] MEDS: Docusate Sodium 100 MG CAPSULE PO ×2 (08:44→20:15)
[2021-03-23] MEDS: Celecoxib 200 MG CAPSULE PO ×2 (08:45→20:15)
[2021-03-23] MEDS: Isosorbide Mononitrate 60 MG TAB.ER.24H 120 MG PO (08:47)
[2021-03-23] MEDS: Metoprolol Succinate ER 50 MG TAB.ER.24H PO (08:47)
[2021-03-23] MEDS: 0.9 % Sodium Chloride Flush 3 ML SYRINGE IVFLUSH ×2 (08:48→20:15)
--- NOTE | 2021-03-23 09:16 | P.PNOP_ITS ---
Subjective Subjective Date of Service: 03/23/21 Interval history: Postop day 2 status post right total hip arthroplasty No overnight events. Resting comfortably in bed. He states he did well with physical therapy. No concerns. Denies shortness of breath chest pain or palpitations. No dizziness. Physical Exam Vital Signs: Vital Signs: Last Vital Signs Temp 97.6 F 03/23/21 08:00 Pulse 71 03/23/21 08:11 Resp 16 03/23/21 08:00 BP 106/55 L 03/23/21 08:11 Pulse Ox 97 03/23/21 08:11 Body Mass Index 25.5 Const: General: cooperative, healthy appearing and no acute distress Resp: Effort & Inspection: normal respiratory effort and able to speak in complete sentences Cardio: Rate: regular rate Peripheral pulses: Peripheral pulses 2+ throughout GI: Palpation (GI): Soft to palpation Skin: General skin exam: no rashes or lesions noted Extrem: Other: incision clean dry and intact. [place] intact. No erythema or effusion. Calf supple nontender. Neurovascularly intact. Progress Note: A&P Assessment and plan (1) Status post total hip replacement, right: Status: Acute Assessment and Plan: * Continue pain mgmnt * Aspirin for dvt ppx * PT for RT GT * Dispo planning-PT and pain mgmnt Fall Risk Details Current Medications: Current Medications Generic Name Dose Route Start Last Admin Trade Name Freq PRN Reason Stop Dose Admin Acetaminophen 650 mg 03/21/21 11:46 Acetaminophen 325 Mg Tablet PO Q6H PRN Pain, Mild (Pain Scale 1-3) Aspirin 325 mg 03/22/21 09:00 03/23/21 08:43 Aspirin 325 Mg Tablet PO 325 mg BID ERIC Administration Atorvastatin Calcium 80 mg 03/22/21 09:00 03/23/21 08:46 Atorvastatin Calcium 80 Mg Tablet PO Not Given DAILY ERIC Celecoxib 200 mg 03/21/21 21:00 03/23/21 08:45 Celecoxib 200 Mg Capsule PO 200 mg BID ERIC Administration Docusate Sodium 100 mg 03/21/21 21:00 03/23/21 08:44 Docusate Sodium 100 Mg Capsule PO 100 mg BID ERIC Administration Hydromorphone HCl 0.25 mg 03/21/21 11:46 03/21/21 21:55 Hydromorphone Hcl 0.5 Mg/0.5 Ml Syringe IVPUSH 0.25 mg Q4H PRN Administration Pain, Severe (Pain Scale 7-10) Dextrose/Sodium Chloride 1,000 mls @ 80 mls/hr 03/21/21 12:00 03/23/21 03:23 D51/2ns IVCONT 80 mls/hr .[id number] ERIC Administration Isosorbide Mononitrate 120 mg 03/22/21 09:00 03/23/21 08:47 Isosorbide Mononitrate 60 Mg Tab.Er.24h PO 120 mg DAILY ERIC Administration Protocol Metoprolol Succinate 50 mg 03/23/21 09:00 03/23/21 08:47 Metoprolol Succinate Er 50 Mg Tab.Er.24h PO 50 mg DAILY ERIC Administration Protocol Naloxone HCl 0.2 mg 03/21/21 11:46 Naloxone Hcl 0.4 Mg/Ml Vial IVPUSH Q2M PRN Excessive sedation or RR < 8 Nitroglycerin 0.4 mg 03/21/21 17:01 03/21/21 23:55 Nitroglycerin 0.4 Mg Tab.Subl SUBLINGUAL 0.4 mg Q5M PRN Administration chest pain Nystatin/Triamcinolone Acetonide 1 appl 03/21/21 21:00 03/22/21 20:11 Nystatin/Triamcinolone Cream 15 Gm Tube TOPICAL 1 appl BID ERIC Administration Ondansetron HCl 4 mg 03/21/21 13:04 03/21/21 13:11 Ondansetron Hcl 4 Mg/2 Ml Vial IVPUSH 4 mg Q8H PRN Administration nausea Oxycodone HCl 5 mg 03/21/21 11:46 03/22/21 07:27 Oxycodone Hcl Immed Release 5 Mg Tablet PO 5 mg Q4H PRN Administration Pain, Moderate (Pain Scale 4-6 Oxycodone HCl 10 mg 03/21/21 21:00 03/23/21 08:44 Oxycodone Hcl Er 10 Mg Tab.Er.12h PO 10 mg BID ERIC Administration Sodium Chloride 3 ml 03/21/21 16:00 03/23/21 08:48 0.9 % Sodium Chloride Flush 3 Ml Syringe IVFLUSH 3 ml QSHIFT ERIC Administration Sodium Chloride 3 ml 03/21/21 16:00 03/23/21 08:48 0.9 % Sodium Chloride Flush 3 Ml Syringe IVFLUSH Not Given QSHIFT ERIC Time Spent With Patient Time: Total time spent is greater than 50% in coordination of care (as documented) at patient's floor/unit and/or counseling patient: Time with patient: less than 15 minutes Procedures Date of Service Date of Service: 03/23/21
[2021-03-23] MEDS: Nystatin/Triamcinolone Cream 15 GM TUBE 1 APPL TOPICAL ×2 (11:53→20:25)
--- NOTE | 2021-03-23 16:14 | P.PNIM_ITS ---
Subjective Subjective Date of Service: 03/23/21 <INNA Gross - Last Filed: 03/23/21 16:19> 03/23/21 <Kishor Summers MD - Last Filed: 03/23/21 18:14> Interval History: Seen and examined morning Resting in bed comfortably. No overnight events. No complaints this morning. <INNA Gross - Last Filed: 03/23/21 16:19> Review of Systems Review of Systems: Yes all other systems are reviewed and are negative <INNA Gross - Last Filed: 03/23/21 16:19> Constitutional Constitutional: Denies chills and Denies fever(s) <INNA Gross - Last Filed: 03/23/21 16:19> Cardiovascular Cardiovascular: Denies chest pain <INNA Gross - Last Filed: 03/23/21 16:19> Respiratory Respiratory: Denies cough <INNA Gross - Last Filed: 03/23/21 16:19> Gastrointestinal Gastrointestinal: Denies abdominal pain <INNA Gross - Last Filed: 03/23/21 16:19> Physical Exam Vital Signs: Vital Signs: Last Vital Signs Temp 97.8 F 03/23/21 15:34 Pulse 79 03/23/21 15:34 Resp 20 03/23/21 15:34 BP 125/60 03/23/21 15:34 Pulse Ox 100 03/23/21 15:34 Body Mass Index 25.5 <INNA Gross - Last Filed: 03/23/21 16:19> Const: General: alert and awake <INNA Gross - Last Filed: 03/23/21 16:19> Nutritional Appearance: well nourished <INNA Gross - Last Filed : 03/23/21 16:19> Orientation/consciousness: patient oriented x3 <INNA Gross - Last Filed: 03/23/21 16:19> HENMT: Head: Yes normocephalic and Yes atraumatic <INNA Gross - Last Filed: 03/23/21 16:19> Eyes: Sclerae: sclerae normal <INNA Gross Last Filed: 03/23/21 16:19> Resp: Effort & Inspection: normal respiratory effort and no respiratory distress <INNA Gross Last Filed: 03/23/21 16:19> Cardio: Rate: regular rate <INNA Gross Last Filed: 03/23/21 16:19> Rhythm: regular rhythm <INNA Gross Last Filed: 03/23/21 16:19> GI: Palpation (GI): Soft to palpation and nontender <INNA Gross Last Filed: 03/23/21 16:19> Neuro: General: patient oriented x3 <INNA Gross Last Filed: 03/23/21 16:19> Cranial nerves: Yes CN's II-XII intact bilaterally and Yes Bilaterally intact EOM present <INNA Gross Last Filed: 03/23/21 16:19> Extrem: Other: right hip c/d/i bandage <INNA Gross Last Filed: 03/23/21 16:19> Objective Data Current Medications Generic Name Dose Route Start Last Admin Trade Name Freq PRN Reason Stop Dose Admin Acetaminophen 650 mg 03/21/21 11:46 Acetaminophen 325 Mg Tablet PO Q6H PRN Pain, Mild (Pain Scale 1-3) Aspirin 325 mg 03/22/21 09:00 03/23/21 08:43 Aspirin 325 Mg Tablet PO 325 mg BID ERIC Administration Atorvastatin Calcium 80 mg 03/22/21 09:00 03/23/21 08:46 Atorvastatin Calcium 80 Mg Tablet PO Not Given DAILY ERIC Benzocaine 1 lozenge 03/23/21 10:56 Throat Lozenge, Medicated Lozenge MUCOUS MEM Q2H PRN Sore Throat Celecoxib 200 mg 03/21/21 21:00 03/23/21 08:45 Celecoxib 200 Mg Capsule PO 200 mg BID ERIC Administration Docusate Sodium 100 mg 03/21/21 21:00 03/23/21 08:44 Docusate Sodium 100 Mg Capsule PO 100 mg BID ERIC Administration Hydromorphone HCl 0.25 mg 03/21/21 11:46 03/21/21 21:55 Hydromorphone Hcl 0.5 Mg/0.5 Ml Syringe IVPUSH 0.25 mg Q4H PRN Administration Pain, Severe (Pain Scale 7-10) Dextrose/Sodium Chloride 1,000 mls @ 80 mls/hr 03/21/21 12:00 03/23/21 03:23 D51/2ns IVCONT 80 mls/hr .[id number] ERIC Administration Isosorbide Mononitrate 120 mg 03/22/21 09:00 03/23/21 08:47 Isosorbide Mononitrate 60 Mg Tab.Er.24h PO 120 mg DAILY ERIC Administration Protocol Metoprolol Succinate 50 mg 03/23/21 09:00 03/23/21 08:47 Metoprolol Succinate Er 50 Mg Tab.Er.24h PO 50 mg DAILY ERIC Administration Protocol Naloxone HCl 0.2 mg 03/21/21 11:46 Naloxone Hcl 0.4 Mg/Ml Vial IVPUSH Q2M PRN Excessive sedation or RR < 8 Nitroglycerin 0.4 mg 03/21/21 17:01 03/21/21 23:55 Nitroglycerin 0.4 Mg Tab.Subl SUBLINGUAL 0.4 mg Q5M PRN Administration chest pain Nystatin/Triamcinolone Acetonide 1 appl 03/21/21 21:00 03/23/21 11:53 Nystatin/Triamcinolone Cream 15 Gm Tube TOPICAL 1 appl BID ERIC Administration Ondansetron HCl 4 mg 03/21/21 13:04 03/21/21 13:11 Ondansetron Hcl 4 Mg/2 Ml Vial IVPUSH 4 mg Q8H PRN Administration nausea Oxycodone HCl 5 mg 03/21/21 11:46 03/22/21 07:27 Oxycodone Hcl Immed Release 5 Mg Tablet PO 5 mg Q4H PRN Administration Pain, Moderate (Pain Scale 4-6 Oxycodone HCl 10 mg 03/21/21 21:00 03/23/21 08:44 Oxycodone Hcl Er 10 Mg Tab.Er.12h PO 10 mg BID ERIC Administration Sodium Chloride 3 ml 03/21/21 16:00 03/23/21 08:48 0.9 % Sodium Chloride Flush 3 Ml Syringe IVFLUSH 3 ml QSHIFT ERIC Administration Sodium Chloride 3 ml 03/21/21 16:00 03/23/21 08:48 0.9 % Sodium Chloride Flush 3 Ml Syringe IVFLUSH Not Given QSHIFT ERIC <INNA Gross - Last Filed: 03/23/21 16:19> Labs CBC & Chem 7: : 03/23/21 06:09 03/23/21 06:09 <INNA Gross - Last Filed: 03/23/21 16:19> Assessment and Plan (1) Status post total hip replacement, right: Status: Acute <INNA Gross - Last Filed: 03/23/21 16:19> Assessment and Plan: I have seen and evaluated this patient. I have discussed the case and its management with the ENTRY LEVEL STAFF ACCOUNTANT and I agree with the findings and plan as documented in the ENTRY LEVEL STAFF ACCOUNTANT?s note <Kishor Summers MD - Last Filed: 03/23/21 18:14> (2) Osteoarthritis of right hip: Status: Acute <INNA Gross - Last Filed: 03/23/21 16:19> Assessment and Plan: 70-year-old man admitted to Orthopedic surgery and is status post right total hip arthroplasty. s/p right total hip arthroplasty. -management as per surgical team acute on chronic anemia asymptomatic given underlying CAD can consider blood transfusion -follow H/H Hypertension. BP has been soft at times. -resume lower dose of metoprolol, can up titrate prn CAD -BB initially held for bradycardia, will resume lower dose (on toprol xl 100 daily at baseline) -monitor heart rate closely HLD -continue statin CAD stable. no chest pain -continue imdur, statin, beta-ivania Thrombocytopenia Chronic -follow CBC DVT prophylaxis - asa Full code Attending: Dr. Summers <INNA Gross - Last Filed: 03/23/21 16:19>
[2021-03-24 03:43] VITALS: BP 127/60; PULSE 73; RESP 15; TEMP 36.3; O2SAT 98
--- NOTE | 2021-03-24 04:42 | PC.NURSE ---
iv infiltrated right arm.iv removed.warm soak applied.
[2021-03-24 06:39] LABS: MANUAL DIFF FLAG NO
[2021-03-24 06:54] LABS: Basophils Percent Auto 0.4 % (0-2); Eosinophils Absolute Auto 0.2 X10*3/uL (0.0-0.4); Eosinophils Percent Auto 4.6 % (0-4); Hematocrit 25.2 % (42-52); Hemoglobin 8.3 g/dl (14.0-18.0); Imm Gran Abs Auto 0.03 X10*3/uL (0.00-0.03); Imm Gran Pct Auto 0.6 % (0.0-0.4); Lymphocytes Absolute Auto 1.2 X10*3/uL (1.2-4.9); Lymphocytes Percent Auto 24.7 % (20-40); Mean Corpuscular HGB Conc 32.9 g/dl (31.0-36.0); Mean Corpuscular Hemoglobin 31.3 pg (27.0-33.0); Mean Corpuscular Volume 95.1 fL (80-98); Mean Platelet Volume 12.4 fL (9.4-12.4); Monocytes Absolute Auto 0.5 X10*3/uL (0.1-1.2); Monocytes Percent Auto 10.1 % (2-11); Neutrophils Absolute Auto 2.8 X10*3/uL (2.0-8.3); Neutrophils Percent Auto 59.6 % (45-73); Platelet Count 108 X10*3/uL (160-400); Red Blood Count 2.65 X10*6/uL (4.60-5.80); Red Cell Distribution Width 12.7 % (11.0-16.0); White Blood Count 4.8 X10*3/uL (4.8-10.8)
--- NOTE | 2021-03-24 07:10 | P.DS_ITS ---
DS: Providers Provider Date of Service: 03/24/21 Date of admission: 03/21/21 06:46 Primary care physician: Kingsley Villar MD Consults: 03/21/21 11:46 Consult to Hospitalist Routine Consulting Provider: Hospitalist Reason For Exam: post op medical managment DS: Diagnosis Discharge Diagnosis (1) Status post total hip replacement, right: Status: Acute DS: Medications Discharge Medications Home Medications: Home Medications Medication Instructions Recorded Confirmed isosorbide mononitrate 120 mg 120 mg PO DAILY 02/06/21 03/07/21 tablet,extended release 24 hr Previous Rx's Medication Instructions Recorded clotrimazole-betamethasone 1 1 appl TOPICAL BID 14 Days #45 g 11/07/20 %-0.05 % topical cream metoprolol succinate 100 mg 100 mg PO DAILY 90 Days #90 tab 11/07/20 tablet,extended release 24 hr nitroglycerin 0.4 mg sublingual 0.4 mg SUBLINGUAL Q5M PRN 30 Days 11/07/20 tablet #90 tab rosuvastatin 20 mg tablet 20 mg PO DAILY 90 Days #90 tab 02/01/21 walker #1 ea 02/20/21 omeprazole 20 mg capsule,delayed 20 mg PO DAILY #90 cap 03/16/21 release acetaminophen 650 mg PO Q6H PRN 30 Days #240 tab 03/24/21 aspirin 325 mg PO BID 42 Days #84 tab 03/24/21 docusate sodium 100 mg PO BID 14 Days #28 cap 03/24/21 oxycodone 5 mg PO Q4H PRN 7 Days #42 tab 03/24/21 DS: Summary Hospital Course Hospital Course: This is a 70-year-old gentleman who presented to the office with right hip pain. He was found to have end-stage osteoarthritis of the right hip. He failed all conservative treatment and continued to have pain with daily activities and ambulation. He had consented to move forward with right total hip arthroplasty. The patient underwent a successful right total hip arthroplasty, was transferred to PACU and then to the floor to recover. During their stay, their vitals were stable, afebrile at 97.4 . Labs were unremarkable, H/H 8.3/25.2. POD 1 he was started on aspirin 325 mg b.i.d. for DVT ppx, they also received services twice a day. Prior to discharge, their dressing was change, incision clean dry and intact, new Aquacel dressing applied and the plan was to be discharged home with VNA services Time Spent with Patient Time attestation: Total time spent providing and/or coordinating discharge services: Discharge coordination time: Less than 30 minutes Quality: Stroke Does the patient have a stroke diagnosis?: No Physical Exam Vital Signs: Vital Signs: Last Vital Signs Temp 97.4 F 03/24/21 03:43 Pulse 73 03/24/21 03:43 Resp 15 03/24/21 03:43 BP 127/60 03/24/21 03:43 Pulse Ox 98 03/24/21 03:43 Body Mass Index 25.5 Const: General: cooperative, healthy appearing and no acute distress Resp: Effort & Inspection: normal respiratory effort and able to speak in complete sentences Cardio: Rate: regular rate Peripheral pulses: Peripheral pulses 2+ throughout GI: Palpation (GI): Soft to palpation Skin: General skin exam: no rashes or lesions noted Extrem: Other: Right hip incision clean dry and intact. [place] intact. No erythema or effusion. Calf supple nontender. Neurovascularly intact. DS: Data Data Completed and Pending Completed studies during hospitalization [Text1]: Pending at discharge 03/21/21 09:06 Surgical [PTH] Routine Discharge Plan Discharge Patient Disposition: Home Health Service Discharge Diagnosis: s/p RT GT Referrals: Ade Giang PA-C [[facility]] - 2 Weeks (04/07/21 10:00 [facility] Ade Giang PA-C) Discharge Medications: New acetaminophen 325 mg Tablet 650 mg PO Q6H PRN (Reason: Pain, Mild (Pain Scale 1-3)) 30 Days Qty: 240 RF: 0 aspirin 325 mg Tablet 325 mg PO BID 42 Days Qty: 84 RF: 0 docusate sodium 100 mg Capsule 100 mg PO BID 14 Days Qty: 28 RF: 0 oxycodone 5 mg Tablet 5 mg PO Q4H PRN (Reason: Pain, Moderate (Pain Scale 4-6) 7 Days Qty: 42 RF: 0 Continued rosuvastatin 20 mg tablet 20 mg PO DAILY 90 Days Qty: 90 RF: 3 omeprazole 20 mg capsule,delayed release(DR/EC) 20 mg PO DAILY Qty: 90 RF: 0 metoprolol succinate 100 mg tablet extended release 24 hr 100 mg PO DAILY 90 Days Qty: 90 RF: 3 nitroglycerin 0.4 mg tablet, sublingual 0.4 mg sublingual Q5M PRN (Reason: chest pain) 30 Days Qty: 90 RF: 3 clotrimazole-betamethasone 1-0.05 % cream 1 appl topical BID 14 Days Qty: 45 RF: 1 isosorbide mononitrate 120 mg tablet extended release 24 hr 120 mg PO DAILY RF: 0 (DME) walker Misc See Rx Instructions .ROUTE .MEDSUPPLY Qty: 1 RF: 0 Discontinued aspirin 81 mg tablet,delayed release (DR/EC) 81 mg PO DAILY RF: 0 Discharge Orders: Discharge Order (Routine); Ordered 03/24/21 Ordered By: Johnathan Phipps Diet: regular diet Activity on Discharge: Use cane or walker Stand Alone Forms: Patient Portal Discharge page Care Plan Goals: Restore function of joint Health Concerns: none Plan of Treatment: Physical Therapy Pain management DVT prophylaxis Assessment: * Physical Therapy for Total hip arthroplasty: posterior precautions, gait training, ROM, strength * Limit stair climbing * No showering, no tub bath-keep dressing clean, dry and intact * No driving x6 weeks * Continue Aspirin twice a day x 6 weeks * Follow up with [facility]oped[facility] in 2 weeks
[2021-03-24 07:30] LABS: Anion Gap 8 (12-20); Blood Urea Nitrogen 17 mg/dL (9-16); Calcium 7.7 mg/dL (8.4-10.2); Carbon Dioxide 29 mmol/L (22-29); Chloride 107 mmol/L (96-108); Creatinine Clr Calc Pharmacy 62.4; Estimated Glomerular Filt Rate > 60; Glucose Fasting 98 mg/dL (60-99); Potassium 4.4 mmol/L (3.3-5.1); Sodium 140 mmol/L (135-145)
[2021-03-24 08:00] VITALS: BP 131/60; PULSE 76; RESP 18; TEMP 36.4; O2SAT 97
--- NOTE | 2021-03-24 08:11 | MHC.CM.PN ---
dell point of care technician ntoe electronic medical record reviewed along with case discussed with patient .he is aware that he will be discharged home today and will have the [place] visiting nurse for home physical theapry, discharge plan home with [facility] for home pt (no nursing is needed as he is on asa for anticoagulant) pcp patient to call for appoint,ent post hospitla discharge transportstion family
[2021-03-24 08:15] VITALS: BP 127/60; PULSE 73; O2SAT 98
[2021-03-24] MEDS: Isosorbide Mononitrate 60 MG TAB.ER.24H 120 MG PO (09:43)
[2021-03-24] MEDS: Aspirin 325 MG TABLET PO (09:44)
[2021-03-24] MEDS: oxyCODONE HCl ER 10 MG TAB.ER.12H PO (09:44)
[2021-03-24] MEDS: Metoprolol Succinate ER 50 MG TAB.ER.24H PO (09:44)
[2021-03-24] MEDS: Docusate Sodium 100 MG CAPSULE PO (09:44)
[2021-03-24] MEDS: Celecoxib 200 MG CAPSULE PO (09:44)
[2021-03-24] MEDS: Nystatin/Triamcinolone Cream 15 GM TUBE 1 APPL TOPICAL (09:45)
--- NOTE | 2021-03-24 10:05 | HO.PM.IMPN ---
Subjective Subjective Date of Service: 03/24/21 <INNA Gross - Last Filed: 03/24/21 10:08> 03/24/21 <Kishor Summers MD - Last Filed: 03/24/21 11:16> Interval History: Seen and examined this morning No complaints. No overnight events Patient denies any chest pain, palpitations, shortness of breath, dizziness. <INNA Gross - Last Filed: 03/24/21 10:08> Review of Systems Review of Systems: Yes all other systems are reviewed and are negative <INNA Gross - Last Filed: 03/24/21 10:08> Constitutional Constitutional: Denies chills and Denies fever(s) <INNA Gross Last Filed: 03/24/21 10:08> Cardiovascular Cardiovascular: Denies chest pain <INNA Gross - Last Filed: 03/24/21 10:08> Respiratory Respiratory: Denies cough <INNA Gross - Last Filed: 03/24/21 10:08> Gastrointestinal Gastrointestinal: Denies abdominal pain <INNA Gross - Last Filed: 03/24/21 10:08> Physical Exam Vital Signs: Vital Signs: Last Vital Signs Temp 97.6 F 03/24/21 08:00 Pulse 73 03/24/21 08:15 Resp 18 03/24/21 08:00 BP 127/60 03/24/21 08:15 Pulse Ox 98 03/24/21 08:15 Body Mass Index 25.5 <INNA Gross - Last Filed: 03/24/21 10:08> Const: General: alert and awake <INNA Gross - Last Filed: 03/24/21 10:08> Nutritional Appearance: well nourished <INNA Gross - Last Filed: 03/24/21 10:08> Orientation/consciousness: patient oriented x3 <INNA Gross Last Filed: 03/24/21 10:08> HENMT: Head: Yes normocephalic and Yes atraumatic <INNA Gross Last Filed: 03/24/21 10:08> Eyes: Sclerae: sclerae normal <INNA Gross Last Filed: 03/24/21 10:08> Resp: Effort & Inspection: normal respiratory effort and no respiratory distress <INNA Gross Last Filed: 03/24/21 10:08> Cardio: Rate: regular rate <INNA Gross Last Filed: 03/24/21 10:08> Rhythm: regular rhythm <INNA Gross Last Filed: 03/24/21 10:08> GI: Palpation (GI): Soft to palpation and nontender <INNA Gross Last Filed: 03/24/21 10:08> Neuro: General: patient oriented x3 <INNA Gross Last Filed: 03/24/21 10:08> Cranial nerves: Yes CN's II-XII intact bilaterally and Yes Bilaterally intact EOM present <INNA Gross Last Filed: 03/24/21 10:08> Extrem: Other: right hip c/d/i bandage <INNA Gross Last Filed: 03/24/21 10:08> Objective Data Current Medications Generic Name Dose Route Start Last Admin Trade Name Freq PRN Reason Stop Dose Admin Acetaminophen 650 mg 03/21/21 11:46 Acetaminophen 325 Mg Tablet PO Q6H PRN Pain, Mild (Pain Scale 1-3) Aspirin 325 mg 03/22/21 09:00 03/24/21 09:44 Aspirin 325 Mg Tablet PO 325 mg BID ERIC Administration Atorvastatin Calcium 80 mg 03/22/21 09:00 03/24/21 09:39 Atorvastatin Calcium 80 Mg Tablet PO Not Given DAILY ERIC Benzocaine 1 lozenge 03/23/21 10:56 Throat Lozenge, Medicated Lozenge MUCOUS MEM Q2H PRN Sore Throat Celecoxib 200 mg 03/21/21 21:00 03/24/21 09:44 Celecoxib 200 Mg Capsule PO 200 mg BID ERIC Administration Docusate Sodium 100 mg 03/21/21 21:00 03/24/21 09:44 Docusate Sodium 100 Mg Capsule PO 100 mg BID ERIC Administration Hydromorphone HCl 0.25 mg 03/21/21 11:46 03/21/21 21:55 Hydromorphone Hcl 0.5 Mg/0.5 Ml Syringe IVPUSH 0.25 mg Q4H PRN Administration Pain, Severe (Pain Scale 7-10) Dextrose/Sodium Chloride 1,000 mls @ 80 mls/hr 03/21/21 12:00 03/24/21 04:51 D51/2ns IVCONT Not Given .[id number] [facility] Isosorbide Mononitrate 120 mg 03/22/21 09:00 03/24/21 09:43 Isosorbide Mononitrate 60 Mg Tab.Er.24h PO 120 mg DAILY [facility] Administration Protocol Metoprolol Succinate 50 mg 03/23/21 09:00 03/24/21 09:44 Metoprolol Succinate Er 50 Mg Tab.Er.24h PO 50 mg DAILY [facility] Administration Protocol Naloxone HCl 0.2 mg 03/21/21 11:46 Naloxone Hcl 0.4 Mg/Ml Vial IVPUSH Q2M PRN Excessive sedation or RR < 8 Nitroglycerin 0.4 mg 03/21/21 17:01 03/21/21 23:55 Nitroglycerin 0.4 Mg Tab.Subl SUBLINGUAL 0.4 mg Q5M PRN Administration chest pain Nystatin/Triamcinolone Acetonide 1 appl 03/21/21 21:00 03/24/21 09:45 Nystatin/Triamcinolone Cream 15 Gm Tube TOPICAL 1 appl BID ERIC Administration Ondansetron HCl 4 mg 03/21/21 13:04 03/21/21 13:11 Ondansetron Hcl 4 Mg/2 Ml Vial IVPUSH 4 mg Q8H PRN Administration nausea Oxycodone HCl 5 mg 03/21/21 11:46 03/22/21 07:27 Oxycodone Hcl Immed Release 5 Mg Tablet PO 5 mg Q4H PRN Administration Pain, Moderate (Pain Scale 4-6 Oxycodone HCl 10 mg 03/21/21 21:00 03/24/21 09:44 Oxycodone Hcl Er 10 Mg Tab.Er.12h PO 10 mg BID ERIC Administration Senna 8.6 mg 03/24/21 21:00 Sennosides 8.6 Mg Tablet PO BEDTIME [facility] Sodium Chloride 3 ml 03/21/21 16:00 03/24/21 09:39 0.9 % Sodium Chloride Flush 3 Ml Syringe IVFLUSH Not Given QSHIFT ERIC Sodium Chloride 3 ml 03/21/21 16:00 03/24/21 09:39 0.9 % Sodium Chloride Flush 3 Ml Syringe IVFLUSH Not Given QSHIFT ERIC <INNA Gross - Last Filed: 03/24/21 10:08> Labs CBC & Chem 7: : 03/24/21 06:10 03/24/21 06:10 <INNA Gross - Last Filed: 03/24/21 10:08> Assessment and Plan (1) Status post total hip replacement, right: Status: Acute <INNA Gross - Last Filed: 03/24/21 10:08> Assessment and Plan: I saw patient and discuss with INNA, and I agree with above, he's refusing transfusion despite benefit being discused with him. <Kishor Summers MD - Last Filed: 03/24/21 11:16> (2) Osteoarthritis of right hip: Status: Acute <INNA Gross - Last Filed: 03/24/21 10:08> Assessment and Plan: 70-year-old man admitted to Orthopedic surgery and is status post right total hip arthroplasty. s/p right total hip arthroplasty. -management as per surgical team acute on chronic anemia asymptomatic given underlying CAD can consider blood transfusion - patient has declined blood transfusion, follow CBC outpatient. Hypertension. BP has been soft at times. -resume lower dose of metoprolol, can up titrate prn CAD -BB initially held for bradycardia, continue lower dose of lopressor, can follow up outpatient and up titrate as needed -monitor heart rate closely HLD -continue statin CAD stable. no chest pain -continue imdur, statin, beta-ivania Thrombocytopenia Chronic -follow CBC DVT prophylaxis - asa as per primary team Full code Attending: Dr. Summers <INNA Gross - Last Filed: 03/24/21 10:08>
--- NOTE | 2021-03-24 10:53 | W.MHC.F2F ---
Service Date Service Date: 03/24/21 Reasons for Services Reason for longterm: other (CBC - monitor H/H) Reason for physical therapy: home safety and mobility, therapeutic exercises, restore joint function, gait/transfer training and ADL training Reason for occupational therapy: home safety and mobility, therapeutic exercises, restore joint function, gait/transfer training and ADL training MD Overseeing Care: Yogesh Stevens Homebound: Leaving the home is medically contraindicated at this time without the asist of a device and/or another person due th the listed conditions above and below. Homebound supporting statement: Pt. is considered home bound due to recent surgery. Unable to drive, poor balance, poor gait mechanics. Certification: Based on the above findings, I certify that this patient is confined to the home and needs intermittent longterm care, physical therapy and/or speech therapy, or continues to need occupational therapy. The patient is under my care, and I have initiated the establishment of the plan of care. The patient will be followed by a physician who will periodically review the plan of care.
--- NOTE | 2021-03-24 11:32 | PC.NURSE ---
refused blood transfusion, MD aware, both ortho and medical. discharged home. Understands instruc.
== END 2021-03-24 11:32 | disposition home health service (06) | DRG 301 ==
LOC: HO.SSSA 06:47 → HO.S3 11:37
PROVIDERS: Physician Assistant; Absent Provider Internal Medicine; Admitting Provider Orthopaedic Surgery; PCP Internal Medicine; Visit Provider Orthopaedic Surgery
PROC: 0SR90JA Replacement of Right Hip Joint with Synthetic Substitute, Uncemented, Open Approach (ICD-10-PCS; CPT 27130; principal; 2021-03-21 07:30)
DX: M16.11 Unilateral primary osteoarthritis, right hip (principal); D69.6 Thrombocytopenia, unspecified; I10 Essential (primary) hypertension; I25.10 Atherosclerotic heart disease of native coronary artery without angina pectoris; Z20.822 Contact with and (suspected) exposure to COVID-19; Z79.899 Other long term (current) drug therapy
CPT/HCPCS: 36415; 72170; 80048; 81001; 85025; 86617; 86618; 86850; 86900; 86901; 87635; 87640; 87641; 88304; 88311; 97110; 97116; 97162; 97166; 97535; C1776; J0131; J0690; J1100; J1170; J2405; J3010

== ENCOUNTER → 2021-04-07 09:57 | Outpatient (BNVA) | payer BC, SELFPAY | PROVIDERS: PCP Internal Medicine; Visit Provider Physician Assistant ==

== ENCOUNTER 2021-04-08 10:21 | Outpatient (REF) | payer BC, SELFPAY ==
[2021-04-08 11:00] LABS: MANUAL DIFF FLAG NO
[2021-04-08 11:03] LABS: Basophils Percent Auto 0.2 % (0-2); Eosinophils Absolute Auto 0.1 X10*3/uL (0.0-0.4); Eosinophils Percent Auto 1.6 % (0-4); Hematocrit 28.7 % (42-52); Hemoglobin 9.3 g/dl (14.0-18.0); Imm Gran Abs Auto 0.01 X10*3/uL (0.00-0.03); Imm Gran Pct Auto 0.2 % (0.0-0.4); Lymphocytes Absolute Auto 1.2 X10*3/uL (1.2-4.9); Lymphocytes Percent Auto 27.3 % (20-40); Mean Corpuscular HGB Conc 32.4 g/dl (31.0-36.0); Mean Corpuscular Hemoglobin 30.7 pg (27.0-33.0); Mean Corpuscular Volume 94.7 fL (80-98); Mean Platelet Volume 11.4 fL (9.4-12.4); Monocytes Absolute Auto 0.3 X10*3/uL (0.1-1.2); Monocytes Percent Auto 7.3 % (2-11); Neutrophils Absolute Auto 2.9 X10*3/uL (2.0-8.3); Neutrophils Percent Auto 63.4 % (45-73); Platelet Count 277 X10*3/uL (160-400); Red Blood Count 3.03 X10*6/uL (4.60-5.80); Red Cell Distribution Width 13.1 % (11.0-16.0); White Blood Count 4.5 X10*3/uL (4.8-10.8)
== END 2021-04-08 10:22 | disposition home or self-care (01) ==
LOC: HO.LAB 10:21
PROVIDERS: PCP Internal Medicine; Visit Provider Internal Medicine
DX: D64.9 Anemia, unspecified (principal)
CPT/HCPCS: 36415; 85025

== ENCOUNTER → 2021-04-18 09:46 | Outpatient (BNVA) | payer BC, SELFPAY | PROVIDERS: PCP Internal Medicine; Referring Provider Internal Medicine; Visit Provider Nurse Practitioner ==

== ENCOUNTER 2021-05-05 09:27 | Outpatient (REF) | payer BC, SELFPAY ==
--- NOTE | ~2021-05-05 | XR_ITS ---
EXAMINATION: PELVIS AND RIGHT HIP X-RAY CLINICAL INFORMATION: Post right hip replacement COMPARISON: Previous x-ray 03/21/2021 TECHNIQUE: One view of the pelvis and AP and shoot through lateral view of the right hip FINDINGS: There is a right hip replacement in satisfactory position. No fracture or dislocation is seen. There is mild arthritis at the left hip joint. Bones of the pelvis are unremarkable. There are degenerative changes of the lower lumbar spine. Soft tissues are unremarkable. XR/XR hip RT 1V IMPRESSION: Satisfactory appearance of right hip replacement.
--- NOTE | ~2021-05-05 | XR_ITS ---
EXAMINATION: PELVIS AND RIGHT HIP X-RAY CLINICAL INFORMATION: Post right hip replacement COMPARISON: Previous x-ray 03/21/2021 TECHNIQUE: One view of the pelvis and AP and shoot through lateral view of the right hip FINDINGS: There is a right hip replacement in satisfactory position. No fracture or dislocation is seen. There is mild arthritis at the left hip joint. Bones of the pelvis are unremarkable. There are degenerative changes of the lower lumbar spine. Soft tissues are unremarkable. XR/XR pelvis 1-2V IMPRESSION: Satisfactory appearance of right hip replacement.
== END 2021-05-05 09:28 | disposition home or self-care (01) ==
LOC: HO.HOSX 09:27
PROVIDERS: Visit Provider Orthopaedic Surgery
DX: Z47.1 Aftercare following joint replacement surgery (principal); Z96.641 Presence of right artificial hip joint
CPT/HCPCS: 72170; 73501; 73502

== ENCOUNTER → 2021-05-30 09:23 | Outpatient (BNVA) | payer BC, SELFPAY | PROVIDERS: PCP Internal Medicine; Visit Provider Nurse Practitioner ==

== ENCOUNTER 2021-06-19 08:17 | Outpatient (REF) | payer BC, SELFPAY ==
[2021-06-19 10:23] LABS: MANUAL DIFF FLAG NO
[2021-06-19 10:28] LABS: Basophils Percent Auto 0.5 % (0-2); Eosinophils Absolute Auto 0.2 X10*3/uL (0.0-0.4); Eosinophils Percent Auto 3.9 % (0-4); Hematocrit 35.7 % (42-52); Hemoglobin 11.7 g/dl (14.0-18.0); Imm Gran Abs Auto 0.02 X10*3/uL (0.00-0.03); Imm Gran Pct Auto 0.5 % (0.0-0.4); Lymphocytes Absolute Auto 1.7 X10*3/uL (1.2-4.9); Lymphocytes Percent Auto 41.9 % (20-40); Mean Corpuscular HGB Conc 32.8 g/dl (31.0-36.0); Mean Corpuscular Hemoglobin 29.8 pg (27.0-33.0); Mean Corpuscular Volume 91.1 fL (80-98); Mean Platelet Volume 12.1 fL (9.4-12.4); Monocytes Absolute Auto 0.4 X10*3/uL (0.1-1.2); Monocytes Percent Auto 9.6 % (2-11); Neutrophils Absolute Auto 1.8 X10*3/uL (2.0-8.3); Neutrophils Percent Auto 43.6 % (45-73); Platelet Count 137 X10*3/uL (160-400); Red Blood Count 3.92 X10*6/uL (4.60-5.80); Red Cell Distribution Width 12.9 % (11.0-16.0); White Blood Count 4.1 X10*3/uL (4.8-10.8)
[2021-06-19 11:15] LABS: Glucose Urine UA NEG (NEG); Leukocyte Esterase Urine NEG (NEG); Nitrite Urine NEG (NEG); Specific Gravity - Urine 1.025 (1.005-1.025); UACC Culture Trigger NO; Urine Blood 2+ (NEG); Urine Ketones NEG (NEG); Urine Protein TRACE MG/DL (NEG-TRACE)
[2021-06-19 11:17] LABS: Appearance Urine CLEAR; Color Urine YELLOW
[2021-06-19 11:17] LABS: TSH reflex Free T4 1.83 uIU/mL (0.32-4.0)
[2021-06-19 11:20] LABS: Alanine Aminotransferase 16 U/L (0-40); Albumin Level 4.4 g/dL (3.5-5.0); Alkaline Phosphatase 54 U/L (39-117); Anion Gap 11 (12-20); Aspartate Amino Transferase 19 U/L (5-37); Bilirubin Total 0.6 mg/dL (0.0-1.0); Blood Urea Nitrogen 18 mg/dL (9-16); Calcium 9.2 mg/dL (8.4-10.2); Carbon Dioxide 30 mmol/L (22-29); Chloride 105 mmol/L (96-108); Cholesterol 129 mg/dL; Estimated Glomerular Filt Rate 50; Glucose Fasting 95 mg/dL (60-99); HDL Cholesterol 53 mg/dL; LDL Cholesterol Calculated 59 mg/dl; Potassium 5.2 mmol/L (3.3-5.1); Sodium 141 mmol/L (135-145); Total Protein 7.2 g/dL (6.5-8.0); Triglycerides 88 mg/dL
[2021-06-19 11:37] LABS: WBC Urine 0-2 /HPF (0-4)
== END 2021-06-19 08:18 | disposition home or self-care (01) ==
LOC: HO.LAB 08:17
PROVIDERS: Absent Provider Physician Assistant; PCP Internal Medicine; Visit Provider Orthopaedic Surgery
DX: Z47.1 Aftercare following joint replacement surgery (principal); Z96.641 Presence of right artificial hip joint; E78.00 Pure hypercholesterolemia, unspecified; K21.9 Gastro-esophageal reflux disease without esophagitis; I25.118 Atherosclerotic heart disease of native coronary artery with other forms of angina pectoris; I10 Essential (primary) hypertension; D61.818 Other pancytopenia
CPT/HCPCS: 36415; 80053; 80061; 81001; 84443; 85025

== ENCOUNTER 2021-07-07 11:51 | Outpatient (REF) | payer BC, SELFPAY ==
--- NOTE | ~2021-07-07 | XR_ITS ---
EXAMINATION: XR SHOULDER, RIGHT CLINICAL INFORMATION: Pain COMPARISON: Previous x-ray from 2010 TECHNIQUE: AP external rotation, Grashey, scapular Y, and axillary views of the right shoulder. FINDINGS: Bone alignment is normal. No fracture or dislocation is seen. The glenohumeral joint is normal. There is mild arthritis at the acromioclavicular joint. There is an undersurface acromial osteophyte. Soft tissues are unremarkable. XR/XR shoulder RT min 2V IMPRESSION: Arthritis at the acromioclavicular joint and undersurface acromial osteophyte.
== END 2021-07-07 11:52 | disposition home or self-care (01) ==
LOC: HO.XRAY 11:51
PROVIDERS: PCP Internal Medicine; Visit Provider Internal Medicine
DX: M25.511 Pain in right shoulder (principal)
CPT/HCPCS: 73030

== ENCOUNTER → 2021-07-25 08:27 | Outpatient (BNVA) | payer BC, SELFPAY | PROVIDERS: PCP Internal Medicine; Visit Provider Nurse Practitioner ==

== ENCOUNTER 2021-07-31 07:36 | Outpatient (REF) | payer BC, SELFPAY ==
[2021-07-31 08:43] LABS: Blood Urea Nitrogen 18 mg/dL (9-16); Estimated Glomerular Filt Rate 56
== END 2021-07-31 07:37 | disposition home or self-care (01) ==
LOC: HO.LAB 07:36
PROVIDERS: PCP Internal Medicine; Visit Provider Nurse Practitioner
DX: R10.84 Generalized abdominal pain (principal)
CPT/HCPCS: 36415; 82565; 84520

== ENCOUNTER 2021-08-07 07:58 | Outpatient (REF) | payer BC, SELFPAY ==
--- NOTE | ~2021-08-07 | CT_ITS ---
EXAMINATION: CT ABDOMEN AND PELVIS WITH CONTRAST CLINICAL INFORMATION: Generalized abdominal pain. COMPARISON: CT abdomen/pelvis dated 01/03/2010. TECHNIQUE: Multidetector volumetric images were obtained from the superior aspect of the liver through the pubic symphysis following administration 85 mL of Omnipaque 350 intravenous contrast. Sagittal and coronal reformatted images were obtained on the technologist's workstation. Oral contrast: Yes This CT examination was performed using dose optimization techniques as appropriate, variously including the following: *Automated exposure control *Adjustment of mA and/or kV according to patient size (this includes techniques or standardized protocols for targeted exams where dose is matched to indication/reason for exam; i.e. extremities or head) *Use of iterative reconstruction technique DLP: 432 mGy-cm FINDINGS: LUNG BASES: The visualized lung bases are unremarkable. LIVER, GALLBLADDER, AND BILIARY TREE: The liver is normal in size, shape, and attenuation. Small inferior right hepatic cyst, slightly more prominent when compared to the prior examination. No superior right and left hepatic cysts. No enhancing hepatic parenchymal lesion. No biliary ductal dilatation. The gallbladder is unremarkable with no evidence of radiopaque gallstones, gallbladder wall thickening, or obvious pericholecystic inflammatory changes. PANCREAS: Unremarkable. SPLEEN: Unremarkable. ADRENAL GLANDS: Unremarkable. KIDNEYS AND URETERS: The kidneys are normal in size, shape, and attenuation. No hydronephrosis, hydroureter, or calculi seen. No perinephric stranding. BLADDER: Unremarkable. GASTROINTESTINAL TRACT: Hkgw-nm-vahhymlw stool burden, which could indicate a degree of constipation. Oral contrast reaches the colon. No small or large bowel obstruction. No bowel wall thickening or associated inflammatory change. The appendix is again noted to be minimally prominent distally with fluid within the lumen. There is contrast within the proximal appendix. Findings appear similar to the CT dated 01/03/2010. No acute findings to suggest acute appendicitis. PERITONEAL CAVITY: No intra-abdominal free air or free fluid. No intra-abdominal mass or organized fluid collection/abscess formation. ABDOMINAL WALL: No significant hernia is appreciated. LYMPH NODES: No lymphadenopathy. VASCULAR: No abdominal aortic dilatation or dissection. Scattered atherosclerotic calcifications. PELVIC VISCERA: Mild prostatomegaly. OSSEOUS STRUCTURES: Right hip arthroplasty without evidence of hardware complication. No lytic or blastic osseous lesion. CT/CT abdomen pelvis w con IMPRESSION: 1. Azdq-xs-nbvgevli stool burden, which could indicate a degree of constipation. No small or large bowel obstruction. No bowel wall thickening or associated inflammatory change. 2. No new intra-abdominal mass, lymphadenopathy, or ascites. 3. Mild prostatomegaly.
[2021-08-07] MEDS: iohexoL 350 MG/ML 100 ML INFUS..BTL 85 ML IV (10:49)
[2021-08-07] MEDS: Barium Sulfate Oral (Berry) 450 ML ORAL.SUSP 900 ML PO (10:50)
== END 2021-08-07 07:59 | disposition home or self-care (01) ==
LOC: HO.CT 07:58
PROVIDERS: PCP Internal Medicine; Visit Provider Nurse Practitioner
DX: R10.84 Generalized abdominal pain (principal)
CPT/HCPCS: 74177; Q9967

== ENCOUNTER 2021-12-04 07:59 | Outpatient (REF) | payer OTHER, SELFPAY ==
[2021-12-04 08:18] LABS: MANUAL DIFF FLAG NO
[2021-12-04 08:35] LABS: Basophils Percent Auto 0.5 % (0-2); Eosinophils Absolute Auto 0.2 X10*3/uL (0.0-0.4); Eosinophils Percent Auto 5.1 % (0-4); Hematocrit 35.8 % (42.0-52.0); Hemoglobin 12.1 g/dl (14.0-18.0); Imm Gran Abs Auto 0.01 X10*3/uL (0.00-0.03); Imm Gran Pct Auto 0.3 % (0.0-0.4); Lymphocytes Absolute Auto 1.6 X10*3/uL (1.2-4.9); Lymphocytes Percent Auto 41.3 % (20-40); Mean Corpuscular HGB Conc 33.8 g/dl (31.0-36.0); Mean Corpuscular Hemoglobin 31.2 pg (27.0-33.0); Mean Corpuscular Volume 92.3 fL (80.0-98.0); Mean Platelet Volume 11.6 fL (9.4-12.4); Monocytes Absolute Auto 0.4 X10*3/uL (0.1-1.2); Monocytes Percent Auto 9.4 % (2-11); Neutrophils Absolute Auto 1.7 x10*3/uL (2.0-8.3); Neutrophils Percent Auto 43.4 % (45-73); Platelet Count 152 X10*3/uL (160-400); Red Blood Count 3.88 X10*6/uL (4.60-5.80); Red Cell Distribution Width 12.6 % (11.0-16.0)
[2021-12-04 09:03] LABS: Alanine Aminotransferase 12 U/L (0-40); Albumin Level 4.3 g/dL (3.5-5.0); Alkaline Phosphatase 51 U/L (39-117); Anion Gap 10 (12-20); Aspartate Amino Transferase 21 U/L (5-37); Bilirubin Total 0.6 mg/dL (0.0-1.0); Blood Urea Nitrogen 16 mg/dL (9-16); Calcium 9.5 mg/dL (8.4-10.2); Carbon Dioxide 32 mmol/L (22-29); Chloride 105 mmol/L (96-108); Cholesterol 154 mg/dL; Estimated Glomerular Filt Rate 56; Glucose Fasting 98 mg/dL (60-99); HDL Cholesterol 61 mg/dL; LDL Cholesterol Calculated 77 mg/dl; Potassium 4.9 mmol/L (3.3-5.1); Sodium 142 mmol/L (135-145); Total Protein 7.1 g/dL (6.5-8.0); Triglycerides 81 mg/dL
[2021-12-04 09:24] LABS: Vitamin D 25-OH Total 19.7 ng/mL (>30)
[2021-12-04 09:33] LABS: Appearance Urine CLEAR; Color Urine YELLOW; Glucose Urine UA NEG (NEG); Leukocyte Esterase Urine NEG (NEG); Nitrite Urine NEG (NEG); UACC Culture Trigger NO; Urine Blood 2+ (NEG); Urine Ketones NEG (NEG); Urine Protein TRACE MG/DL (NEG-TRACE)
[2021-12-04 10:07] LABS: Squamous Epithelial Cell Urine TRACE /LPF; WBC Urine 0-2 /HPF (0-4)
== END 2021-12-04 08:00 | disposition home or self-care (01) ==
LOC: HO.LAB 07:59
PROVIDERS: Visit Provider Internal Medicine
DX: E78.00 Pure hypercholesterolemia, unspecified (principal); E55.9 Vitamin D deficiency, unspecified; I10 Essential (primary) hypertension
CPT/HCPCS: 36415; 80053; 80061; 81001; 82306; 84443; 85025

== ENCOUNTER 2022-08-09 09:17 | Outpatient (REF) | payer OTHER, SELFPAY ==
[2022-08-09 09:43] LABS: MANUAL DIFF FLAG NO
[2022-08-09 10:48] LABS: Basophils Percent Auto 0.6 % (0-2); Eosinophils Absolute Auto 0.1 X10*3/uL (0.0-0.4); Eosinophils Percent Auto 3.9 % (0-4); Hemoglobin 11.8 g/dl (14.0-18.0); Imm Gran Abs Auto 0.01 X10*3/uL (0.00-0.03); Imm Gran Pct Auto 0.3 % (0.0-0.4); Lymphocytes Absolute Auto 1.4 X10*3/uL (1.2-4.9); Mean Corpuscular HGB Conc 32.8 g/dl (31.0-36.0); Mean Corpuscular Hemoglobin 30.7 pg (27.0-33.0); Mean Corpuscular Volume 93.8 fL (80.0-98.0); Mean Platelet Volume 12.9 fL (9.4-12.4); Monocytes Absolute Auto 0.3 X10*3/uL (0.1-1.2); Monocytes Percent Auto 7.2 % (2-11); Neutrophils Absolute Auto 1.8 x10*3/uL (2.0-8.3); Platelet Count 128 X10*3/uL (160-400); Red Blood Count 3.84 X10*6/uL (4.60-5.80); Red Cell Distribution Width 12.5 % (11.0-16.0); White Blood Count 3.6 X10*3/uL (4.8-10.8)
[2022-08-09 11:13] LABS: Appearance Urine Clear; Color Urine Yellow; Glucose Urine UA Negative (Negative); Leukocyte Esterase Urine Negative (Negative); Nitrite Urine Negative (Negative); PH 6.5 (5.0-9.0); Specific Gravity - Urine 1.015 (1.005-1.025); UMIC TRIGGER UACC YES; Urine Blood Small (1+) (Negative); Urine Ketones Negative (Negative); Urine Protein Trace mg/dL (Neg-Trace)
[2022-08-09 11:31] LABS: Alanine Aminotransferase 9 U/L (0-40); Albumin Level 4.4 g/dL (3.5-5.0); Alkaline Phosphatase 53 U/L (39-117); Anion Gap 15 (12-20); Aspartate Amino Transferase 20 U/L (5-37); Bilirubin Total 0.4 mg/dL (0.0-1.0); Blood Urea Nitrogen 16 mg/dL (9-16); Calcium 9.1 mg/dL (8.4-10.2); Carbon Dioxide 27 mmol/L (22-29); Chloride 105 mmol/L (96-108); Cholesterol 137 mg/dL; Estimated Glomerular Filt Rate 51; Glucose Fasting 87 mg/dL (60-99); HDL Cholesterol 57 mg/dL; LDL Cholesterol Calculated 68 mg/dl; Potassium 4.7 mmol/L (3.3-5.1); Sodium 142 mmol/L (135-145); Total Protein 7.2 g/dL (6.5-8.0); Triglycerides 60 mg/dL
[2022-08-09 11:32] LABS: Bacteria Urine None Seen (None Seen); Hyaline Casts Urine 0-2 /LPF (0-2); Squamous Epithelial Cell Urine 0-2 /HPF (0-2); WBC Urine 0-5 /HPF (0-5)
[2022-08-09 11:39] LABS: TSH reflex Free T4 1.62 uIU/mL (0.32-4.0); Vitamin D 25-OH Total 26.8 ng/mL (>30)
== END 2022-08-09 09:18 | disposition home or self-care (01) ==
LOC: HO.LAB 09:17
PROVIDERS: PCP Internal Medicine; Visit Provider Internal Medicine
DX: E78.00 Pure hypercholesterolemia, unspecified (principal); E55.9 Vitamin D deficiency, unspecified; I10 Essential (primary) hypertension
CPT/HCPCS: 36415; 80053; 80061; 81001; 81003; 82306; 84443; 85025

== ENCOUNTER → 2022-09-10 07:26 | Outpatient (REF) | payer BC, SELFPAY ==
--- NOTE | 2022-09-10 07:28 | CA_ITS ---
Transthoracic Echocardiogram Patient (Last, First, Middle): Yamil Agrawal, Gender: Male Date of : 1950 Age: 72 Procedure Date: 09/10/2022 Procedure Type: Transthoracic Echocardiogram Location: OP Height: 175.26 cm Weight: 60.78 kg BSA: 1.74 m2 Heart Rate: 62 bpm BP: 145 / 80 mmHg Associate Java Developer: FREDDIE Referring MD: Kingsley Villar MD Symptoms: R01.1 - Cardiac murmur, unspecified Study Quality: Adequate ECG Rhythm: Sinus Conclusions: - The left ventricular systolic function is normal. The calculated ejection fraction is 62% by biplane method. - Moderate to severe focal septal hypertrophy. - No obvious valvular pathology seen on this study. Findings Left Ventricle Normal left ventricular cavity size. There is mildly increased left ventricular wall thickness. The left ventricular systolic function is normal. The calculated ejection fraction is 62% by biplane method. There is no evidence of regional wall motion abnormalities. Diastolic function is normal for age. Moderate to severe focal septal hypertrophy. LV peak GLS mildly reduced at -15.4%. Right Ventricle Normal right ventricular cavity size and systolic function. Atria Both atria are normal in size. Aortic Valve There is a normal trileaflet aortic valve. There is mild calcification of the aortic valve. There is no aortic valve stenosis. Trace to mild aortic regurgitation peak Mitral Valve The mitral valve appears normal. There is mild mitral valve regurgitation. There is no mitral valve stenosis. Pulmonic Valve The pulmonic valve is likely normal. Tricuspid Valve Normal tricuspid valve structure. There is mild tricuspid valve regurgitation. There is no evidence of pulmonary hypertension. Great Vessels The asc aorta is normal in size. Venous The inferior vena cava is normal in size and collapses greater than 50% with inspiration. Pericardium/Pleural There is no evidence of pericardial effusion. Prior Study Comparison No prior study available for comparison. Recommendations, Care & Conclusions No obvious valvular pathology seen on this study. Measurements 2D Linear Measurements IVSd: 1.71 0.6-0.9/0.6-1.0 cm LVIDd: 3.13 3.9-5.3/4.2-5.9 cm LVIDd Index: 1.80 2.4-3.2/2.2-3.1 cm/m2 LVIDs: 1.43 2.0-3.6 cm LVPWd: 1.12 0.7-1.1 cm LA Diam: 3.60 2.7-3.8/3.0-4.0 cm LAIDs Index: 2.07 1.5-2.3 cm/m2 LV Mass: 188.29 67-162/88-224 g LV Mass Index: 108.21 43-95/49-115 g/m2 LVOT Diam: 1.90 3.0+(-)1.3 cm 2D Systolic Function EF 4C: 60.70 >55% EF 2C: 64.30 >55% EF BiP: 62.00 >55% Mitral Valve MV Pk E: 0.87 MV PK A: 0.78 MV Decel Time: 171.00 E/A: 1.10 E'Lateral: 7.46 E'Medial: 7.22 E/E' Med: 12.00 E/E' Lat: 11.70 PHT: 50.00 MVA PHT: 4.40 Decel [place]: 5.10 Aortic Valve AoV Pk Bishop: 1.35 AoV Mn Bishop: 0.83 AoV VTI: 0.29 AoV Pk Grad: 7.00 Aov Mn Grad: 3.00 SHAAN Cont.VTI: 2.47 LVOT LVOT Pk Bishop: 1.01 LVOT Mn Bishop: 0.64 LVOT VTI: 0.25 LVOT Pk Grad: 4.00 LVOT Mn Grad: 2.00 LVOT Diam: 1.90 LVOT Area: 2.84 Diastolic Function MV Pk E: 0.87 MV Pk A: 0.78 E/A: 1.10 E'Medial: 7.22 E/E' Med: 12.00 E' Laterial: 7.46 E/E' Lat: 11.70 Right Ventricle TAPSE (mm): 20.90 TVS' Bishop: 12.40 Tricuspid Valve TR Pk Bishop: 2.45 TR Pk Grad: 24.00 RA Press: 3.00 RVSP: 27.00 Great Vessels Aorta Sinus of Valsalva: 3.20 2.0-3.5 cm Ao Asc: 3.50 2.1-3.4 cm Pulmonary Valve PV Pk Bishop: 1.03 Peak PV Grad: 4.00 Updated in Other Vendor System with Status of Final Haresh Gonsalez MD electronically signed on 09/10/2022 12:51:09 PM with status of Final
== END ==
LOC: HO.CARD 07:26
PROVIDERS: PCP Internal Medicine; Visit Provider Internal Medicine
DX: R01.1 Cardiac murmur, unspecified (principal)
CPT/HCPCS: 93306; 93356

== ENCOUNTER 2023-01-04 07:41 | Outpatient (REF) | payer BC, SELFPAY ==
[2023-01-04 07:58] LABS: MANUAL DIFF FLAG NO
[2023-01-04 08:17] LABS: Basophils Percent Auto 0.5 % (0-2); Eosinophils Absolute Auto 0.1 X10*3/uL (0.0-0.4); Hematocrit 36.9 % (42.0-52.0); Hemoglobin 12.3 g/dl (14.0-18.0); Imm Gran Abs Auto 0.01 X10*3/uL (0.00-0.03); Imm Gran Pct Auto 0.2 % (0.0-0.4); Lymphocytes Absolute Auto 2.1 X10*3/uL (1.2-4.9); Lymphocytes Percent Auto 47.8 % (20-40); Mean Corpuscular HGB Conc 33.3 g/dl (31.0-36.0); Mean Corpuscular Hemoglobin 30.8 pg (27.0-33.0); Mean Corpuscular Volume 92.5 fL (80.0-98.0); Mean Platelet Volume 11.5 fL (9.4-12.4); Monocytes Absolute Auto 0.4 X10*3/uL (0.1-1.2); Monocytes Percent Auto 8.2 % (2-11); Neutrophils Absolute Auto 1.7 x10*3/uL (2.0-8.3); Neutrophils Percent Auto 40.3 % (45-73); Platelet Count 165 X10*3/uL (160-400); Red Blood Count 3.99 X10*6/uL (4.60-5.80); Red Cell Distribution Width 13.2 % (11.0-16.0); White Blood Count 4.3 X10*3/uL (4.8-10.8)
[2023-01-04 09:04] LABS: Alanine Aminotransferase 11 U/L (0-40); Albumin Level 4.1 g/dL (3.5-5.0); Alkaline Phosphatase 45 U/L (39-117); Anion Gap 13 (12-20); Appearance Urine Clear; Aspartate Amino Transferase 19 U/L (5-37); Bilirubin Total 0.7 mg/dL (0.0-1.0); Blood Urea Nitrogen 14 mg/dL (9-16); Calcium 9.2 mg/dL (8.4-10.2); Carbon Dioxide 30 mmol/L (22-29); Chloride 103 mmol/L (96-108); Cholesterol 142 mg/dL; Color Urine Yellow; Estimated Glomerular Filt Rate 54; Glucose Fasting 92 mg/dL (60-99); Glucose Urine UA Negative (Negative); HDL Cholesterol 60 mg/dL; LDL Cholesterol Calculated 72 mg/dl; Leukocyte Esterase Urine Negative (Negative); Nitrite Urine Negative (Negative); Potassium 4.9 mmol/L (3.3-5.1); Sodium 141 mmol/L (135-145); Specific Gravity - Urine 1.015 (1.005-1.025); Total Protein 7.1 g/dL (6.5-8.0); Triglycerides 53 mg/dL; UMIC TRIGGER UACC YES; Urine Blood Trace (Negative); Urine Ketones Negative (Negative); Urine Protein Negative (Neg-Trace)
[2023-01-04 09:10] LABS: Bacteria Urine None Seen (None Seen); Hyaline Casts Urine 0-2 /LPF (0-2); RBC Urine 0-2 /HPF (0-2); Squamous Epithelial Cell Urine 0-2 /HPF (0-2); WBC Urine 0-5 /HPF (0-5)
[2023-01-04 09:24] LABS: TSH reflex Free T4 2.21 uIU/mL (0.32-4.0); Vitamin D 25-OH Total 38.2 ng/mL (>30)
== END 2023-01-04 07:42 | disposition home or self-care (01) ==
LOC: HO.LAB 07:41
PROVIDERS: PCP Internal Medicine; Visit Provider Internal Medicine
DX: E78.00 Pure hypercholesterolemia, unspecified (principal); E55.9 Vitamin D deficiency, unspecified; I10 Essential (primary) hypertension
CPT/HCPCS: 36415; 80053; 80061; 81001; 81003; 82306; 84443; 85025

== ENCOUNTER 2023-02-28 09:36 | Outpatient (REF) | payer BC, SELFPAY ==
--- NOTE | ~2023-02-28 | XR_ITS ---
EXAMINATION: XR PELVIS CLINICAL INFORMATION: Hip pain. COMPARISON: 05/05/2021 TECHNIQUE: AP view of the pelvis. FINDINGS: There is no evidence of acute fracture or diastasis of the pelvis. Changes of enthesopathy present. There is degenerative disc disease and facet arthropathy at the L5-S1 level. Sacroiliac joints appear unremarkable. The left hip joint space is maintained. There is some calcification of the superior labrum. There is some superior angulation of the left femoral neck which may be related to impingement syndrome. Patient status post left total hip arthroplasty with femoral and acetabular components appearing in position on AP view. No acute fracture is identified. XR/XR pelvis 1-2V IMPRESSION: Status post right total hip arthroplasty with components appearing in good position. Degenerative disc disease with facet arthropathy L5-S1.
== END 2023-02-28 09:37 | disposition home or self-care (01) ==
LOC: HO.HOSX 09:36
PROVIDERS: Visit Provider Orthopaedic Surgery
DX: Z96.641 Presence of right artificial hip joint (principal); M54.16 Radiculopathy, lumbar region
CPT/HCPCS: 72170

== ENCOUNTER → 2023-03-07 12:50 | Outpatient (BNVA) | payer BC, SELFPAY | PROVIDERS: PCP Internal Medicine; Visit Provider Urology | DX: R31.29 Other microscopic hematuria (principal); R97.20 Elevated prostate specific antigen [PSA]; N40.0 Benign prostatic hyperplasia without lower urinary tract symptoms; I25.10 Atherosclerotic heart disease of native coronary artery without angina pectoris; I10 Essential (primary) hypertension; Z79.82 Long term (current) use of aspirin; Z79.899 Other long term (current) drug therapy | CPT/HCPCS: 51798 ==

== ENCOUNTER 2023-03-22 09:44 | Outpatient (REF) | payer BC, SELFPAY ==
--- NOTE | ~2023-03-22 | US_ITS ---
EXAMINATION: US RETROPERITONEAL COMPLETE (RENAL) CLINICAL INFORMATION: Other microscopic hematuria. COMPARISON: CT abdomen and pelvis 08/07/2021. TECHNIQUE: Real-time imaging of the kidneys and bladder. FINDINGS: RIGHT KIDNEY: 9.0 x 4.0 x 5.1 cm (SAG x AP x TRV). The kidney is normal in size, contour, and echogenicity. Renal cortical thickness is normal. No calculi or focal parenchymal lesions. No hydronephrosis. LEFT KIDNEY: 9.3 x 3.9 x 4.3 cm (SAG x AP x TRV). The kidney is normal in size, contour, and echogenicity. Renal cortical thickness is normal. No calculi or focal parenchymal lesions. No hydronephrosis. BLADDER: Well distended and normal. Bilateral ureteral jets are demonstrated. Prevoid bladder volume is 177 mL. Postvoid bladder volume is 10 mL. There are bladder wall trabeculations. ADDITIONAL FINDINGS: Prostate dimensions are 6.3 x 5.5 x 5.5 cm (volume 101.0 mL). US/US retroperitoneal comp IMPRESSION: 1. Unremarkable ultrasound appearance of the bilateral kidneys. 2. There is prostatomegaly. 3. There is bladder wall hypertrophy.
[2023-04-05 20:53] LABS: PSA, Ultra Sensitive 1.81 ng/mL
== END 2023-03-22 09:45 | disposition home or self-care (01) ==
LOC: HO.US 09:44
PROVIDERS: PCP Internal Medicine; Visit Provider Urology
DX: Z12.5 Encounter for screening for malignant neoplasm of prostate (principal); R31.29 Other microscopic hematuria; R97.20 Elevated prostate specific antigen [PSA]
CPT/HCPCS: 36415; 76770; 84153

== ENCOUNTER 2023-04-11 16:15 | Outpatient (REF) | payer BC, SELFPAY ==
--- NOTE | ~2023-04-11 | MR_ITS ---
EXAMINATION: MR LUMBAR SPINE WITHOUT CONTRAST CLINICAL INFORMATION: 72-year-old with radiculopathy, lumbar region. Self-reported right buttock and right-sided low back pain with stiffness. COMPARISON: None available. TECHNIQUE: MRI of the lumbar spine was obtained using routine sequences without contrast. FINDINGS: CORONAL ALIGNMENT: Trace lower lumbar levocurvature, minimally convex to the left at L3-L4. SAGITTAL ALIGNMENT: There is 3 mm of grade 1 degenerative spondylolisthesis at L3-L4, with straightening of the lumbar spine. Trace retrolisthesis at L5-S1. LUMBOSACRAL JUNCTION: Normal. There are 5 bhm-ezs-kibzpaq lumbar-type vertebral bodies. VERTEBRAL BODIES: Well maintained with normal height. No compression fractures, anomalies or other deformities. DISC SPACES AND ENDPLATES: Moderate to severe disc space height loss at L5-S1 with intradiscal degenerative signal changes and probable intradiscal vacuum disc phenomenon, with vgholnwz-ad-mjctqh spondylosis asymmetric to the left. Disc desiccation at L3-L4 and L4-L5 also noted without significant disc space height loss, with lwvu-qx-iooxcvsl degrees of spondylosis. L1-L2 and L2-L3 demonstrate normal disc space height and signal. There are Schmorl's nodes seen at L5-S1 on the left and a somewhat prominent Schmorl's node along the inferior endplate of L4 centrally. SPINAL CANAL: Moderately prominent dorsal fat pads at L3-L4 and L4-L5. BONE MARROW: Mild type I degenerative marrow signal changes adjacent to a Schmorl's node along the inferior endplate of L4. Otherwise, no suspicious marrow replacing process or other bone marrow edema. CONUS MEDULLARIS: Terminates at L1. Morphology and signal is normal. INTRADURAL NERVE ROOTS: Within normal limits. L5-S1: Mild retrolisthesis, with concentric disc bulging and paravertebral/posterolateral disc osteophyte complex, left more than right. Slight flattening of the ventral dural sac asymmetric to the left with disc bulging contacting the S1 nerve roots bilaterally with slight impingement on the left S1 nerve root. No significant central canal stenosis. There is mild right-sided and klrq-xj-secxwcis left-sided facet arthrosis with mild narrowing of the left subarticular zone, with fwmx-db-yfgayzfd right and moderate left-sided neural foraminal stenosis with disc osteophyte complex abutting the extraforaminal L5 nerve roots, left more than right. L4-L5: Disc bulging is noted asymmetric to the left with flattening of the ventral dural sac, prominent dorsal fat pad with mild ligamentum flavum thickening. Mild facet arthrosis on the left and moderate on the right. Ptmj-er-ycjnktcj spinal canal stenosis is noted with severe left and moderate right subarticular recess stenosis, likely impinging on the traversing left L5 nerve root. Moderate to severe left-sided and abfx-et-zomzqfdd right-sided neural foraminal stenosis is noted with impingement on the exiting left L4 nerve root. L3-L4: Trace unroofing of the posterior disc margin noted with superimposed disc bulging and flattening of the ventral dural sac with a prominent dorsal fat pad, ligamentum flavum thickening and moderate to severe facet arthrosis, right more than left. There is moderate central spinal canal stenosis with mild crowding of the intradural nerve roots and there is crowding of the subarticular zones bilaterally, left more than right, impinging on the traversing left L4 nerve root. There is moderate left and mild right-sided neural foraminal stenosis, with disc bulging impinging on the left at L3 nerve root at the junction of the foraminal and extraforaminal zone. L2-L3: Normal annular contour. Rmlt-iy-tlhfoiuy bilateral facet arthropathy. No canal stenosis. Minor foraminal narrowing bilaterally. L1-L2: Normal annular contour. Mild facet arthropathy on the left. Mild left-sided foraminal stenosis without canal stenosis. PARAVERTEBRAL AND INCLUDED EXTRASPINAL SOFT TISSUES: The paravertebral soft tissues appear grossly unremarkable. There is a 5 mm T1 hyperintensity in the posterior cortex of the left mid kidney which is slightly T2 hypointense and may reflect either hemorrhagic cyst or possibly a small renal angiomyolipoma. Consider follow-up ultrasound for further assessment. MR/MR lumbar spine wo con IMPRESSION: 1. Trace lower lumbar levocurvature, minimally convex to the left at L3-L4 with mild grade 1 degenerative spondylolisthesis at L3-L4 and trace retrolisthesis at L5-S1. 2. Discogenic degenerative changes between L3-L4 and L5-S1 inclusive, most apparent at L5-S1 with associated spondylosis, disc bulging and disc osteophyte complexes. 3. Multilevel bilateral facet arthrosis and ligamentum flavum thickening, with rrpr-qb-avktgtvl spinal canal stenosis at L4-L5 and moderate spinal canal stenosis at L3-L4. 4. Multilevel bilateral neural foraminal stenosis, most apparent on the left at multiple levels as detailed above and to a lesser degree on the right. 5. Possible small hemorrhagic cyst versus renal angiomyolipoma left mid kidney. Recommend follow-up ultrasound.
== END 2023-04-11 16:16 | disposition home or self-care (01) ==
LOC: HO.MRI 16:15
PROVIDERS: PCP Internal Medicine; Visit Provider Orthopaedic Surgery
DX: M54.16 Radiculopathy, lumbar region (principal)
CPT/HCPCS: 72148

== ENCOUNTER → 2023-04-17 10:21 | Outpatient (BNVA) | payer BC, SELFPAY | PROVIDERS: Visit Provider Urology ==

== ENCOUNTER → 2023-04-25 09:39 | Outpatient (BNVA) | payer BC, SELFPAY | PROVIDERS: PCP Internal Medicine; Visit Provider Orthopaedic Surgery ==

== ENCOUNTER 2023-06-25 07:39 | Outpatient (REF) | payer BC, SELFPAY ==
[2023-06-25 07:49] LABS: MANUAL DIFF FLAG NO
[2023-06-25 07:56] LABS: Basophils Percent Auto 0.7 % (0-2); Eosinophils Absolute Auto 0.3 X10*3/uL (0.0-0.4); Eosinophils Percent Auto 6.3 % (0-4); Hematocrit 34.8 % (42.0-52.0); Hemoglobin 11.7 g/dl (14.0-18.0); Imm Gran Abs Auto 0.01 X10*3/uL (0.00-0.03); Imm Gran Pct Auto 0.2 % (0.0-0.4); Lymphocytes Absolute Auto 1.9 X10*3/uL (1.2-4.9); Lymphocytes Percent Auto 44.3 % (20-40); Mean Corpuscular HGB Conc 33.6 g/dl (31.0-36.0); Mean Corpuscular Hemoglobin 32.1 pg (27.0-33.0); Mean Corpuscular Volume 95.3 fL (80.0-98.0); Monocytes Absolute Auto 0.4 X10*3/uL (0.1-1.2); Monocytes Percent Auto 9.8 % (2-11); Neutrophils Absolute Auto 1.7 x10*3/uL (2.0-8.3); Neutrophils Percent Auto 38.7 % (45-73); Platelet Count 137 X10*3/uL (160-400); Red Blood Count 3.65 X10*6/uL (4.60-5.80); Red Cell Distribution Width 12.9 % (11.0-16.0); White Blood Count 4.3 X10*3/uL (4.8-10.8)
[2023-06-25 08:29] LABS: Alanine Aminotransferase 11 U/L (0-40); Albumin Level 4.3 g/dL (3.5-5.0); Alkaline Phosphatase 41 U/L (39-117); Anion Gap 12 (12-20); Aspartate Amino Transferase 20 U/L (5-37); Bilirubin Total 0.5 mg/dL (0.0-1.0); Blood Urea Nitrogen 14 mg/dL (9-16); Calcium 9.4 mg/dL (8.4-10.2); Carbon Dioxide 28 mmol/L (22-29); Chloride 106 mmol/L (96-108); Cholesterol 140 mg/dL (<200); Estimated Glomerular Filt Rate 49; Glucose Fasting 97 mg/dL (60-99); HDL Cholesterol 67 mg/dL (>40); LDL Cholesterol Calculated 62 mg/dL (<100); Potassium 4.7 mmol/L (3.3-5.1); Sodium 141 mmol/L (135-145); Total Protein 7.3 g/dL (6.5-8.0); Triglycerides 59 mg/dL (<150)
[2023-06-25 08:44] LABS: TSH reflex Free T4 2.92 uIU/mL (0.32-4.0); Vitamin D 25-OH Total 38.5 ng/mL (>30)
[2023-06-25 10:51] LABS: Appearance Urine Clear; Color Urine Yellow; Glucose Urine UA Negative (Negative); Leukocyte Esterase Urine Negative (Negative); Nitrite Urine Negative (Negative); PH 6.5 (5.0-9.0); Specific Gravity - Urine 1.015 (1.005-1.025); UMIC TRIGGER UACC YES; Urine Blood Small (1+) (Negative); Urine Ketones Negative (Negative); Urine Protein Trace mg/dL (Neg-Trace)
[2023-06-25 10:54] LABS: Bacteria Urine None Seen (None Seen); Hyaline Casts Urine 0-2 /LPF (0-2); Squamous Epithelial Cell Urine 0-2 /HPF (0-2); WBC Urine 0-5 /HPF (0-5)
== END 2023-06-25 07:40 | disposition home or self-care (01) ==
LOC: HO.LAB 07:39
PROVIDERS: PCP Internal Medicine; Visit Provider Internal Medicine
DX: I10 Essential (primary) hypertension (principal); E78.00 Pure hypercholesterolemia, unspecified; E55.9 Vitamin D deficiency, unspecified; R30.0 Dysuria
CPT/HCPCS: 36415; 80053; 80061; 81001; 82306; 84443; 85025

== ENCOUNTER 2023-06-28 15:19 | Outpatient (AMB) | payer BC, SELFPAY ==
[2023-06-28 15:25] VITALS: BP 110/62; PULSE 61; O2SAT 98; BMI 24.7
--- NOTE | 2023-06-28 15:25 | A.OFFPC_ITS ---
Vital Signs 06/28/23 15:25 Height 5 ft 9 in Weight 167 lb 6 oz BMI 24.7 BP 110/62 Blood Pressure Location Lt brachial Position Sitting Pulse 61 Pulse Source Pulse Oximeter Pulse Oximetry (%) 98 Oxygen Delivery Method Room Air Intake Visit Reasons: HTN, hyperlipidemia, GERD Accompanied by: Self / Same As Patient Allergies No Known Allergies Allergy (Unknown, Verified 06/28/23 16:03) U Medication List - Last Reconciled 06/28/23 by Kingsley Villar MD acetaminophen 650 mg (2 x 325 mg) PO Q6H PRN 30 days amlodipine 10 mg PO DAILY aspirin 81 mg PO DAILY 90 days cholecalciferol (vitamin D3) 50 mcg PO DAILY 90 days clotrimazole-betamethasone 1-0.05 % 1 appl topical BID 2 weeks isosorbide mononitrate ER 120 mg PO DAILY 90 days metoprolol succinate ER 100 mg PO DAILY 90 days nitroglycerin 0.4 mg sublingual DIRECTED omeprazole 20 mg PO DAILY 90 days rosuvastatin 20 mg PO DAILY 90 days Tobacco use date assessed: 01/14/23 Fall risk assessment: No Falls in past year Last assessed Fall Risk: 06/28/23 Dental Screening Dental Screen Date: 06/28/23 Did you have a dental visit in the last 12 months?: Yes Did you have a dental problem in the last 6 months where you did not have access to dental care?: No Was dental information given to patient?: Patient has dentist HPI HTN, hyperlipidemia, GERD HPI Details Patient comes in today for his follow up visit States that he feels okay He denies any headaches or dizziness Denies any chest pains, no SOB No nausea/vomiting, no abdominal pain No change in bowel habits noted States that 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 (3 to 4 months) Had his follow up labs done last week - to discuss his results [facility] Medical History Vitamin D deficiency Osteoarthritis of right hip Tick bite of foot COVID-19 vaccine series completed Chronic generalized abdominal pain Tinnitus, bilateral Primary osteoarthritis of knees, bilateral Primary osteoarthritis of both hips Pancytopenia GERD without esophagitis Pure hypercholesterolemia Benign essential hypertension Coronary artery disease Surgical History History of right hip replacement (03/22/21) History of esophagogastroduodenoscopy (EGD) Hx of colonoscopy S/P cardiac catheterization S/P right coronary artery (RCA) stent placement History of cardiac catheterization Family History Father No problems noted. Mother No problems noted. Social History Household Members: Spouse Housing: House Are you a primary healthcare consultant to a significant other at home: No Do you presently have visiting nurse or other home services: No Alcohol intake: current Alcohol intake frequency: holidays/special occasions only Alcohol type: wine Patient Tobacco Use Status: Never used Tobacco e-Cigarette/Vaping Use: Never Used Second Hand Smoke Exposure: No service: No Current occupational status: employed Cognitive needs: No Hearing needs: No Vision needs: Yes Questionnaire PHQ-9 Over the last 2 weeks, how often have you been bothered by any of the following problems? 1. Little interest or pleasure in doing things: not at all 2. Feeling down, depressed, or hopeless: not at all 3. Trouble falling or staying asleep, or sleeping too much: not at all 4. Feeling tired or having little energy: not at all 5. Poor appetite or overeating: not at all 6. Feeling bad about yourself - or that you are a failure or have let yourself or your family down: not at all 7. Trouble concentrating on things, such as reading the newspaper or watching television: not at all 8. Moving or speaking so slowly that other people could have noticed. Or the opposite - being so fidgety or restless that you have been moving around a lot more than usual: not at all 9. Thoughts that you would be better off or of hurting yourself in some way: not at all Total score: 0 Depression Screening Interpretation: Negative [id number] - PHQ-9 Billing: Yes Source: Developed by Drs. Golden Gaines, Eugenia Diaz, Chacho Montesinos and colleagues, with an educational ghassan from [employer]. Thrive Questionnaire Date Thrive assessed: 06/28/23 I am a: Patient What is your living situation today?: I have a steady place to live Within the past 12 months, did the food you bought not last and you didn't have the money to get more?: Never true Within the past 12 months, did you worry whether your food would run out before you got money to buy more?: Never true Do you have trouble paying for medicines?: No Do you have trouble getting transportation to medical appointments?: No Do you have trouble paying your heating and electricity bill?: No Do you have trouble taking care of your child, family member or friend?: No Do you have trouble with day-to-day activities such as bathing, preparing meals, shopping, managing finances, etc.?: No Are you currently unemployed and looking for a job?: No Are you interested in more education?: No Currently or been in a relationship where the following occur: no concerns reported AUDIT C Alcohol Use Questionnaire (AUDIT-C) 1. How often do you have a drink containing alcohol?: Never 3. How often do you have six or more drinks on one occasion?: Never Total Score: 0 Score Reviewed/Action Taken: Yes TORRES-7 AMB Questionnaire TORRES-7 Date TORRES - 7 assessed: 01/14/23 Source: Developed by Drs. Golden Gaines, Eugenia iDaz, Chacho Montesinos and colleagues, with an educational ghassan from [employer]. Review of Systems Const Reports difficulty sleeping (at times), Denies fatigue, Denies fever(s) and Denies headache(s) ENT Denies dysphagia, Denies vertigo, Denies dizziness, Denies otalgia, Denies headache(s), Denies neck pain, Denies odynophagia, Reports tinnitus (on and off) and Denies sore throat Card Denies chest pain, Denies palpitations and Denies dyspnea Resp Denies cough and Denies dyspnea GI Denies abdominal pain, Denies constipation, Denies dysphagia, Denies heartburn, Denies diarrhea, Denies nausea, Denies odynophagia and Denies vomiting Denies dysuria, Denies nocturia and Denies urinary frequency Musc Denies neck pain Neuro Denies vertigo, Denies dizziness and Denies headache(s) Endo Denies fatigue and Denies palpitations Physical exam (Primary Care) Vital Signs: Last Vital Signs Pulse 61 09/08/23 15:25 BP 110/62 06/28/23 15:25 Pulse Ox 98 06/28/23 15:25 Oxygen Delivery Method Room Air 06/28/23 15:25 BMI result Body Mass Index 24.7 Tobacco/Smoking Status: Tobacco use Status Tobacco use date assessed 01/14/23 06/28/23 15:30 Patient Tobacco Use Status Never used Tobacco 06/28/23 15:30 e-Cigarette/Vaping Use Never Used 06/28/23 15:30 PHQ-9: PHQ-9 Score PHQ-9: Total score 0 06/28/23 15:30 Depression Screening Interpretation: Negative Thrive Assessment: Date of Thrive Assessment Date Thrive assessed 01/14/23 06/28/23 15:30 Currently or been in a relationship where the following occur: no concerns reported Const General: no acute distress and alert HENMT Ears: TM's normal bilaterally and EAC's normal Throat: Yes posterior oropharynx normal and Yes tonsils normal Neck Neck: Yes no lymphadenopathy and Yes supple Resp Auscultation: clear to auscultation bilaterally, no rales and no wheezes Cardio Rate: regular rate Rhythm: regular rhythm Heart sounds: Murmur heart sound present systolic soft, II/ and at the apex GI Palpation (GI): Soft to palpation and nontender Auscultation: normal bowel sounds Extrem General: Yes no clubbing, cyanosis or edema Assessment and Plan Assessment & Plan (1) Coronary artery disease: Code(s): I25.10 - Atherosclerotic heart disease of [place] coronary artery without angina pectoris Qualifiers: Coronary Disease-Associated Artery/Lesion type: [place] artery [place] vs. transplanted heart: [place] heart Associated angina: with stable angina Qualified Code(s): I25.118 - Atherosclerotic heart disease of [place] coronary artery with other forms of angina pectoris Plan: Continue Isosorbide Moninitrate ER 120 mg QD, Metoprolol ER 100 mg QD and A spirin 81 mg QD Patient has Nitroglycerin 0.4 mg SL tablets that he takes as needed for chest pains Follow up with cardiology as scheduled (2) Cardiac murmur: Code(s): R01.1 - Cardiac murmur, unspecified Plan: Currently has a soft, systolic murmur heard at the cardiac apex - ? flow murmur Echocardiogram done a few months ago (August 2022) revealed that the left ventricular systolic function is normal and the calculated ejection fraction is 62% by biplane method. There is moderate to severe focal septal hypertrophy BUT no obvious valvular pathology seen on this study. (3) Benign essential hypertension: Code(s): I10 - Essential (primary) hypertension Plan: Reinforced low sodium diet - goal is systolic BP of at least 140 mm or less Continue Metoprolol ER 100 mg QD and Amlodipine 10 mg QD Patient is reminded to keep monitoring his blood pressure regularly (4) Pure hypercholesterolemia: Code(s): E78.00 - Pure hypercholesterolemia, unspecified Plan: Results of his labs done last week reviewed and discussed with patient Reinforced low cholesterol diet Continue Rosuvastatin 20 mg QD Will recheck his labs and fasting lipids in 4 months for follow up (5) Pancytopenia: Code(s): D61.818 - Other pancytopenia Plan: His H/H remains stable on his recent labs - will continue to monitor his CBC regularly Hematology evaluations in the past have all been unremarkable - 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 Stevens in March 2021 with significant improvement of his hip pain Left hip pain has been well-controlled lately Follow-up with orthopedics as scheduled (9) Primary osteoarthritis of knees, bilateral: Code(s): M17.0 - Bilateral primary osteoarthritis of knee Plan: Continue Acetaminophen 650 mg every 6 to 8 hours as needed for pain Follow-up with orthopedics as scheduled (10) Elevated PSA: Code(s): R97.20 - Elevated prostate specific antigen [PSA] Plan: His most recent PSA was normal when checked a few months ago Follow up with urology as scheduled Plan Per request, as he will be travelling and will be gone for a few months, will send in Rx for Paxlovid for him to bring with him in case he runs into COVID; is reminded to hold his Rosuvastatin IF he has to take his Paxlovid at some point Follow up in 4 months Orders: Orders Complete Blood Count Auto Diff 4 Months I10 - Essential (primary) hypertension Comprehensive [place]. Panel Fast 4 Months E78.00 - Pure hypercholesterolemia, unspecified UA CC w/rflx Micro + Cult 4 Months R30.0 - Dysuria Lipid Panel 4 Months E78.00 - Pure hypercholesterolemia, unspecified TSH reflex Free T4 4 Months E78.00 - Pure hypercholesterolemia, unspecified Medications: New nirmatrelvir-ritonavir 300 mg (150 mg x 2)-100 mg (Paxlovid) take TWO 150 mg tablets of nirmatrelvir with ONE 100 mg tablet of ritonavir twice daily for 5 days PO 30 ea 0RF Coding Level of Care Code Est Pt Level 4 (86936) Diagnoses Coronary artery disease of [place] artery of [place] heart with stable angina pectoris I25.118 Coronary Disease-Associated Artery/Lesion type: [place] artery [place] vs. transplanted heart: [place] heart Associated angina: with stable angina Cardiac murmur R01.1 Benign essential hypertension I10 Pure hypercholesterolemia E78.00 Pancytopenia D61.818 GERD without esophagitis K21.9 Vitamin D deficiency E55.9 Primary osteoarthritis of both hips M16.0 Primary osteoarthritis of knees, bilateral M17.0 Elevated PSA R97.20
== END 2023-06-28 16:11 | disposition home or self-care (01) ==
PROVIDERS: PCP Internal Medicine; Visit Provider Internal Medicine
DX: I25.118 Atherosclerotic heart disease of native coronary artery with other forms of angina pectoris (principal); I10 Essential (primary) hypertension; K21.9 Gastro-esophageal reflux disease without esophagitis; E55.9 Vitamin D deficiency, unspecified; D61.818 Other pancytopenia; R01.1 Cardiac murmur, unspecified; E78.00 Pure hypercholesterolemia, unspecified; M16.0 Bilateral primary osteoarthritis of hip; M17.0 Bilateral primary osteoarthritis of knee; R97.20 Elevated prostate specific antigen [PSA]
CPT/HCPCS: 99214

== ENCOUNTER 2023-11-05 08:24 | Outpatient (REF) | payer BC, SELFPAY ==
[2023-11-05 08:39] LABS: MANUAL DIFF FLAG NO
[2023-11-05 09:34] LABS: Basophils Percent Auto 0.2 % (0-2); Eosinophils Absolute Auto 0.3 X10*3/uL (0.0-0.4); Eosinophils Percent Auto 6.7 % (0-4); Hematocrit 37.6 % (42.0-52.0); Hemoglobin 12.1 g/dl (14.0-18.0); Imm Gran Abs Auto 0.04 X10*3/uL (0.00-0.03); Imm Gran Pct Auto 0.9 % (0.0-0.4); Lymphocytes Absolute Auto 1.8 X10*3/uL (1.2-4.9); Lymphocytes Percent Auto 41.6 % (20-40); Mean Corpuscular HGB Conc 32.2 g/dl (31.0-36.0); Mean Corpuscular Hemoglobin 30.2 pg (27.0-33.0); Mean Corpuscular Volume 93.8 fL (80.0-98.0); Mean Platelet Volume 12.1 fL (9.4-12.4); Monocytes Absolute Auto 0.4 X10*3/uL (0.1-1.2); Monocytes Percent Auto 9.4 % (2-11); Neutrophils Absolute Auto 1.8 x10*3/uL (2.0-8.3); Neutrophils Percent Auto 41.2 % (45-73); Platelet Count 164 X10*3/uL (160-400); Red Blood Count 4.01 X10*6/uL (4.60-5.80); Red Cell Distribution Width 13.3 % (11.0-16.0); White Blood Count 4.4 X10*3/uL (4.8-10.8)
[2023-11-05 10:13] LABS: Alanine Aminotransferase 13 U/L (0-40); Albumin Level 4.3 g/dL (3.5-5.0); Alkaline Phosphatase 50 U/L (39-117); Anion Gap 13 (12-20); Aspartate Amino Transferase 19 U/L (5-37); Bilirubin Total 0.4 mg/dL (0.0-1.0); Blood Urea Nitrogen 15 mg/dL (9-16); Calcium 9.4 mg/dL (8.4-10.2); Carbon Dioxide 28 mmol/L (22-29); Chloride 104 mmol/L (96-108); Cholesterol 167 mg/dL (<200); Estimated Glomerular Filt Rate 58; Glucose Fasting 94 mg/dL (60-99); HDL Cholesterol 74 mg/dL (>40); LDL Cholesterol Calculated 82 mg/dL (<100); Potassium 4.9 mmol/L (3.3-5.1); Sodium 140 mmol/L (135-145); Total Protein 7.4 g/dL (6.5-8.0); Triglycerides 59 mg/dL (<150)
[2023-11-05 10:28] LABS: TSH reflex Free T4 2.97 uIU/mL (0.32-4.0)
[2023-11-05 10:51] LABS: Appearance Urine Clear; Color Urine Yellow; Glucose Urine UA Negative (Negative); Leukocyte Esterase Urine Negative (Negative); Nitrite Urine Negative (Negative); PH 7.5 (5.0-9.0); UMIC TRIGGER UACC YES; Urine Blood Trace (Negative); Urine Ketones Negative (Negative); Urine Protein Negative (Neg-Trace)
[2023-11-05 10:59] LABS: Bacteria Urine None Seen (None Seen); Hyaline Casts Urine 0-2 /LPF (0-2); Squamous Epithelial Cell Urine 0-2 /HPF (0-2); WBC Urine 0-5 /HPF (0-5)
== END 2023-11-05 08:25 | disposition home or self-care (01) ==
LOC: HO.LAB 08:24
PROVIDERS: PCP Internal Medicine; Visit Provider Internal Medicine
DX: E78.00 Pure hypercholesterolemia, unspecified (principal); I10 Essential (primary) hypertension
CPT/HCPCS: 36415; 80053; 80061; 81001; 84443; 85025

== ENCOUNTER 2023-11-14 07:17 | Outpatient (REF) | payer BC, SELFPAY ==
[2023-11-14 08:15] LABS: Appearance Urine Clear; Color Urine Yellow; Glucose Urine UA Negative (Negative); Leukocyte Esterase Urine Negative (Negative); Nitrite Urine Negative (Negative); Specific Gravity - Urine 1.015 (1.005-1.025); UMIC TRIGGER UACC YES; Urine Blood Trace (Negative); Urine Ketones Negative (Negative); Urine Protein Negative (Neg-Trace)
[2023-11-14 08:21] LABS: Bacteria Urine None Seen (None Seen); Hyaline Casts Urine 0-2 /LPF (0-2); RBC Urine 0-2 /HPF (0-2); Squamous Epithelial Cell Urine 0-2 /HPF (0-2); WBC Urine 0-5 /HPF (0-5)
== END 2023-11-14 07:18 | disposition home or self-care (01) ==
LOC: HO.LAB 07:17
PROVIDERS: Absent Provider Urology; PCP Internal Medicine; Visit Provider Internal Medicine
DX: R30.0 Dysuria (principal)
CPT/HCPCS: 81001

== ENCOUNTER 2023-11-14 09:51 | Outpatient (AMB) | payer BC, SELFPAY ==
--- NOTE | 2023-11-14 10:25 | MHC.OFFVIS ---
Intake Intake Visit Reasons: 6m/PSA Allergies No Known Allergies Allergy (Unknown, Verified 06/28/23 16:03) U Medication List - Last Reconciled 11/14/23 by Mary Lemons MD acetaminophen 650 mg (2 x 325 mg) PO Q6H PRN 30 days amlodipine 10 mg PO DAILY aspirin 81 mg PO DAILY 90 days cholecalciferol (vitamin D3) 50 mcg PO DAILY 90 days clotrimazole-betamethasone 1-0.05 % 1 appl topical BID 2 weeks isosorbide mononitrate ER 120 mg PO DAILY 90 days metoprolol succinate ER 100 mg PO DAILY 90 days nirmatrelvir-ritonavir 300 mg (150 mg x 2)-100 mg (Paxlovid) take TWO 150 mg tablets of nirmatrelvir with ONE 100 mg tablet of ritonavir twice daily for 5 days PO nitroglycerin 0.4 mg sublingual DIRECTED omeprazole 20 mg PO DAILY 90 days rosuvastatin 20 mg PO DAILY 90 days HPI HPI Comments History of Present Illness Details Yamil is a 72-year-old male who presents to the office for elevated PSA follow-up. The patient was initially evaluated on 03/07/2023--seen as a new patient evaluation for elevated PSA. 11/14/23- states voiding well. Denies obstructive or irritative voiding symptoms. Cont PSA screening. Review of chart: Past medical history is significant for hypertension and coronary artery disease. He is status post cardiac catheter stent in 2007 and 2010. Had angioplasty done on 09 February 2023 which was within normal limits. The patient is taking aspirin 81 mg regularly. He has been following with another urology in the past. He had a PSA done on 11/12/22, which was elevated Denies family history of prostate cancer. PSA results ?11/12/22?13.048. Repeat PSA results reviewed--03/22/23-- 1.81. 03/07/23-- Prostate exam-- Prostate is mildly enlarged and irregular AUA symptom score-- 2. Renal US results reviewed-- Kidneys: WNL, estimated prostate volume noted-101 mL. Plan: Monitor PSA Follow-up one year. [facility]LY [facility] Medical History Vitamin D deficiency Osteoarthritis of right hip Tick bite of foot COVID-19 vaccine series completed Chronic generalized abdominal pain Tinnitus, bilateral Primary osteoarthritis of knees, bilateral Primary osteoarthritis of both hips Pancytopenia GERD without esophagitis Pure hypercholesterolemia Benign essential hypertension Coronary artery disease Surgical History History of right hip replacement (03/22/21) History of esophagogastroduodenoscopy (EGD) Hx of colonoscopy S/P cardiac catheterization S/P right coronary artery (RCA) stent placement History of cardiac catheterization Family History Father No problems noted. Mother No problems noted. Social History Household Members: Spouse Housing: House Are you a primary home care manager to a significant other at home: No Do you presently have visiting nurse or other home services: No Alcohol intake: current Alcohol intake frequency: holidays/special occasions only Alcohol type: wine Patient Tobacco Use Status: Never used Tobacco e-Cigarette/Vaping Use: Never Used Second Hand Smoke Exposure: No service: No Current occupational status: employed Cognitive needs: No Hearing needs: No Vision needs: Yes Review of Systems Const All systems reviewed & are unremarkable except as noted in HPI and below Reports no additional complaints Eyes Reports no additional complaints ENT Reports no additional complaints Card Denies dyspnea Resp Denies cough and Denies dyspnea GI Reports no additional complaints Musc Reports no additional complaints Skin/Breast Denies rash and Denies unusual bruising Neuro Reports no additional complaints Psych Reports no additional complaints Endo Reports no additional complaints Blake/Lymph Reports no additional complaints Aller/Immun Reports no additional complaints Assessment & Plan Assessment & Plan (1) BPH (benign prostatic hyperplasia): Code(s): N40.0 - Benign prostatic hyperplasia without lower urinary tract symptoms (2) Screening PSA (prostate specific antigen): Code(s): Z12.5 - Encounter for screening for malignant neoplasm of prostate Plan Monitor PSA Follow-up one year. Orders: Orders PSA,Total (Free>4and<10) 10 Months N40.0 - Benign prostatic hyperplasia without lower urinary tract symptoms, Z12.5 - Encounter for screening for malignant neoplasm of prostate Prostate Specific Antigen 11/13/23 N40.1 - Benign prostatic hyperplasia with lower urinary tract symptoms Patient Instructions: The patient had an opportunity to ask questions regarding treatment plan. All questions were answered. Imaging, Laboratory studies and physical exam results were discussed and reviewed in detail. No major barriers to understanding were identified. The patient expressed understanding and agreement with the above treatment plan. The patient is aware they should contact our office by phone for worsening of their current condition or the appearance of new symptoms. Compliance is encouraged with any medications and followup testing that is ordered. It is a privilege to be allowed the opportunity to participate in the urologic care of your patient. If you have any questions or concerns regarding treatment for the above conditions please do not hesitate to contact me. The office telephone contact is [phone]. This note is constructed in part using voice recognition software. While every effort has been made to ensure accuracy poultry trimmer errors may have been included. Yours sincerely, Mary Lemons MD Coding Level of Care Code Est Pt Level 3 (53462) Diagnoses BPH (benign prostatic hyperplasia) N40.0 Screening PSA (prostate specific antigen) Z12.5
== END 2023-11-14 10:32 | disposition home or self-care (01) ==
LOC: HO.HUSH 09:51
PROVIDERS: PCP Internal Medicine; Visit Provider Urology
DX: N40.0 Benign prostatic hyperplasia without lower urinary tract symptoms (principal); Z12.5 Encounter for screening for malignant neoplasm of prostate
CPT/HCPCS: 99213

== ENCOUNTER 2023-11-14 10:33 | Outpatient (AMB) | payer BC, SELFPAY ==
--- NOTE | 2023-11-14 10:40 | MHC.OFFVIS ---
Intake Vital Signs 11/14/23 10:42 Height 5 ft 9 in Weight 167 lb BMI 24.7 Intake Visit Reasons: OV-RT GT with NE 03/21 Intake Note: Yamil is a 73 year old male who presents today for a follow up s/p Right GT 03/21/2021. Patient reports that he is having pain all the time in the top of the glute. He has increased pain with bending over especially to tie his shoes Allergies No Known Allergies Allergy (Unknown, Verified 06/28/23 16:03) U HPI OV-RT GT with NE 03/21 HPI Details Yamil is a 73 year old man who returns to discuss his right hip & gluteal pain. He complains of pain primarily at the top of his right gluteals, which he says is worse with weight-bearing, walking, and bending activities such as tying his shoes. He is limited in his daily ambulation in the last few months. He has been performing exercises at home, with some relief. He has a Hx of a right GT, DOS: 03/21/21 He continues to have a sharp pain and a burning sensation in his lower back that radiates down into his right leg. He complains of stiffness in his legs, and denies any tingling. [facility], [facility] Medical History Vitamin D deficiency Osteoarthritis of right hip Tick bite of foot COVID-19 vaccine series completed Chronic generalized abdominal pain Tinnitus, bilateral Primary osteoarthritis of knees, bilateral Primary osteoarthritis of both hips Pancytopenia GERD without esophagitis Pure hypercholesterolemia Benign essential hypertension Coronary artery disease Surgical History History of right hip replacement (03/22/21) History of esophagogastroduodenoscopy (EGD) Hx of colonoscopy S/P cardiac catheterization S/P right coronary artery (RCA) stent placement History of cardiac catheterization Family History Father No problems noted. Mother No problems noted. Social History Household Members: Spouse Housing: House Are you a primary critical care transport nurse to a significant other at home: No Do you presently have visiting nurse or other home services: No Alcohol intake: current Alcohol intake frequency: holidays/special occasions only Alcohol type: wine Patient Tobacco Use Status: Never used Tobacco e-Cigarette/Vaping Use: Never Used Second Hand Smoke Exposure: No service: No Current occupational status: employed Cognitive needs: No Hearing needs: No Vision needs: Yes Review of Systems Const All systems reviewed & are unremarkable except as noted in HPI and below Physical Exam Vital Signs: BMI result Body Mass Index 24.7 Const General: no acute distress, alert and awake Orientation/consciousness: patient oriented x3 HEENT Head: Yes normocephalic and Yes atraumatic Eyes EOM: EOMs intact bilaterally Resp Effort & Inspection: normal respiratory effort and able to speak in complete sentences Cardio Jugular venous distension: no JVD Skin General skin exam: turgor normal Rashes: no rashes Neuro General: patient oriented x3 Extrem Other: TTP piriformis fossa and lateral border of sacrum. Full painless ROM right hip Psych Appearance: grossly normal Affect: normal affect Attitude: cooperative Assessment & Plan Assessment & Plan (1) Lumbar radiculopathy: Code(s): M54.16 - Radiculopathy, lumbar region Plan: Lumbar radic vs piriformis syndrome. PT (2) Status post total hip replacement, right: Comment: 03/21/21 Code(s): Z96.641 - Presence of right artificial hip joint Plan Prepared for Yogesh Stevens MD by Marvin Goldberg, medical reimbursement manager, on 11/14/23 at 10:53 AM, EST. Orders: Orders PT Evaluation and Treatment Today M54.16 - Radiculopathy, lumbar region Coding Level of Care Code Est Pt Level 3 (14155) Diagnoses Lumbar radiculopathy M54.16 Status post total hip replacement, right Z96.641
[2023-11-14 10:42] VITALS: BMI 24.7
== END 2023-11-14 12:27 | disposition home or self-care (01) ==
LOC: HO.HOS 10:33
PROVIDERS: PCP Internal Medicine; Visit Provider Orthopaedic Surgery
DX: M54.16 Radiculopathy, lumbar region (principal); Z96.641 Presence of right artificial hip joint
CPT/HCPCS: 99213

== ENCOUNTER 2023-12-20 09:00 | Outpatient (RCR) | payer BC, SELFPAY ==
--- NOTE | 2023-11-22 11:07 | MHC.PT.EP ---
[facility] [place] Office [place] Office [place] Office [address] Deana Akbar [address] [phone] F: [phone] F: [phone] F: [phone] F: [phone] Physical Therapy Plan of Care Date of Evaluation: 11/22/23 Date of Surgery: Diagnosis: This is a 73 yo male presenting to skilled PT with a script for low back pain. Assessment: This is a 73 yo male presenting to skilled PT with a script for low back pain. He reports that he took a step and missed a stair causing him to land heavily on the R leg. This happened about 2 months and his symptoms have been getting worse since then. Pain is located R buttock and lateral R hip (he also has a THR on this side performed in 2020, he has not had a new x-ray of this since this incident). Pain is achy. Pain increases with bending, tying his shoes, standing from sitting, turning, ADLs for LB, stairs and rolling in the bed. Pain improves with rest and movement. Denies leg symptoms or numbness or tingling. He has used a salon pas for pain relief. Assessment reveals pain that ranges from up to a 6/10 at the worst. Patient demos decreased lumbar and hip ROM, strength of R hip, glut and core, TTP at QL, piri and lumbar spinal surrounding tissues and impaired posture with forward head and rounded shoulders. Based on functional limitations, impaired QOL and pain tolerance patient is a good candidate for skilled PT 2x/wk for 4wks. Frequency and Duration: The patient will be seen 2x/wk for 4wks Short Term Goals: Pt will demonstrate improved postural awareness and understanding of core engagement with supine and standing tasks without cues throughout session to improve overall back safety in 2 weeks. Pt will demonstrate centralization of sx in 2 weeks. Pt will continue to reinforce precautions, sitting, standing and ADL modifications with proper body mechanics in 2 wks. Snf Goals: Pt will demonstrate improved outcome measure by 5 points in 4 weeks for improved functional mobility. Pt will demonstrate ability to bend and lift WNL min to no pain for household tasks in 4 wks. Pt will be I in HEP and compliant in 4wks Treatment Plan: Modalities to reduce pain, spasms and effusion. Manual therapy to restore motion and function. Therapeutic exercise to improve strength and flexibility. Neuromuscular re-education for posture and balance. Therapeutic activities to return to functional activities of daily living. Electronically signed by: Lorrie Lehman PT Please sign and return to therapist. Thank you for your referral.
--- NOTE | 2024-01-20 08:45 | MHC.PT.DC ---
[facility] [place] [facility] [place] [facility] [place] [facility] [address] Deana Akbar [address] [phone] F: [phone] F: [phone] F: [phone] F: [phone] Physical Therapy Discharge Report Diagnosis: This is a 73 yo male presenting to skilled PT with a script for low back pain. Date of Surgery: Date of Evaluation: 11/22/23 Date of Discharge: 01/20/24 Treatments to Date: 4 Cancellations to Date: 0 No Shows to Date: 0 Discharge Status: Achieved Goals Improved Function Independent with HEP Patient Elected to Stop Discharge Summary: Patient is doing well, complains of stiffness and exercise induced soreness now only. He demos less tenderness to palpation, improved pain, ROM and strength. At this point he feels ready to continue on his own. I educated him that if anything changes he can call us, he has 30 days from today and does not need a new script. Electronically signed by: Lorrie Lehman PT Please sign and return to therapist. Thank you for your referral.
== END 2024-01-20 08:45 | disposition home or self-care (01) ==
LOC: HO.PTCHIC 09:00
PROVIDERS: PCP Internal Medicine; Visit Provider Orthopaedic Surgery
DX: M54.16 Radiculopathy, lumbar region (principal)
CPT/HCPCS: 97110; 97140; 97162

== ENCOUNTER 2023-12-30 16:42 | Outpatient (AMB) | payer BC, SELFPAY ==
[2023-12-30 16:51] VITALS: BP 118/62; PULSE 50; O2SAT 98; BMI 25.0
--- NOTE | 2023-12-30 16:51 | MHC.PC.OV ---
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: Not Required per policy Accompanied by: Self / Same As Patient Allergies No Known Allergies Allergy (Unknown, Verified 12/30/23 17:28) U Medication List - Last Reconciled 12/30/23 by Kingsley Villar MD acetaminophen 650 mg (2 x 325 mg) PO Q6H PRN 30 days amlodipine 10 mg PO DAILY aspirin 81 mg PO DAILY 90 days cholecalciferol (vitamin D3) 50 mcg PO DAILY 90 days clotrimazole-betamethasone 1-0.05 % 1 appl topical BID 2 weeks isosorbide mononitrate ER 120 mg PO DAILY 90 days metoprolol succinate ER 100 mg PO DAILY 90 days nitroglycerin 0.4 mg sublingual DIRECTED omeprazole 20 mg PO DAILY 90 days rosuvastatin 20 mg PO DAILY 90 days Tobacco use date assessed: 12/30/23 Fall risk assessment: No Falls in past year Last assessed Fall Risk: 12/30/23 Dental Screening Dental Screen Date: 12/30/23 Did you have a dental visit in the last 12 months?: Yes Did you have a dental problem in the last 6 months where you did not have access to dental care?: No Was dental information given to patient?: Patient has dentist HPI CAD, HTN, hyperlipidemia, OA HPI Details Patient comes in today for his follow-up visit States that he feels okay Noted that he has been experiencing a recurrent sore throat or pressure-like sensation in his throat for a while now States that he has been taking his Omeprazole daily but it has not been helping him much He denies any headaches or dizziness Denies any chest pains, no shortness of breath No nausea/ vomiting, no abdominal pain No change in bowel habits noted Had his follow up labs done a few weeks ago - to discuss his results [facility] Medical History Vitamin D deficiency Osteoarthritis of right hip Tick bite of foot COVID-19 vaccine series completed Chronic generalized abdominal pain Tinnitus, bilateral Primary osteoarthritis of knees, bilateral Primary osteoarthritis of both hips Pancytopenia GERD without esophagitis Pure hypercholesterolemia Benign essential hypertension Coronary artery disease Surgical History History of right hip replacement (03/22/21) History of esophagogastroduodenoscopy (EGD) Hx of colonoscopy S/P cardiac catheterization S/P right coronary artery (RCA) stent placement History of cardiac catheterization Family History Father No problems noted. Mother No problems noted. Social History Household Members: Spouse Housing: House Are you a primary client care representative to a significant other at home: No Do you presently have visiting nurse or other home services: No Alcohol intake: current Alcohol intake frequency: holidays/special occasions only Alcohol type: wine Patient Tobacco Use Status: Never used Tobacco e-Cigarette/Vaping Use: Never Used Second Hand Smoke Exposure: No service: No Current occupational status: employed Cognitive needs: No Hearing needs: No Vision needs: Yes (glasses ) Questionnaire PHQ-9 Over the last 2 weeks, how often have you been bothered by any of the following problems? 1. Little interest or pleasure in doing things: not at all 2. Feeling down, depressed, or hopeless: not at all 3. Trouble falling or staying asleep, or sleeping too much: not at all 4. Feeling tired or having little energy: not at all 5. Poor appetite or overeating: not at all 6. Feeling bad about yourself - or that you are a failure or have let yourself or your family down: not at all 7. Trouble concentrating on things, such as reading the newspaper or watching television: not at all 8. Moving or speaking so slowly that other people could have noticed. Or the opposite - being so fidgety or restless that you have been moving around a lot more than usual: not at all 9. Thoughts that you would be better off or of hurting yourself in some way: not at all Total score: 0 Depression Screening Interpretation: Negative Depression Screening Done: Yes 29855 - PHQ-9 Billing: Yes Source: Developed by Drs. Golden L. Eder, Chacho Calvin and colleagues, with an educational ghassan from [employer]. Thrive Questionnaire Date Thrive assessed: 12/30/23 I am a: Patient What is your living situation today?: I have a steady place to live Within the past 12 months, did the food you bought not last and you didn't have the money to get more?: Never true Within the past 12 months, did you worry whether your food would run out before you got money to buy more?: Never true Do you have trouble paying for medicines?: No Do you have trouble getting transportation to medical appointments?: No Do you have trouble paying your heating and electricity bill?: No Do you have trouble taking care of your child, family member or friend?: No Do you have trouble with day-to-day activities such as bathing, preparing meals, shopping, managing finances, etc.?: No Are you currently unemployed and looking for a job?: No Are you interested in more education?: No Please select the resources that you would like help with: None Currently or been in a relationship where the following occur: no concerns reported THRIVE Score: 0 AUDIT C Alcohol Use Questionnaire (AUDIT-C) 1. How often do you have a drink containing alcohol?: Never 3. How often do you have six or more drinks on one occasion?: Never Total Score: 0 Score Reviewed/Action Taken: Yes TORRES-7 AMB Questionnaire TORRES-7 Date TORRES - 7 assessed: 12/30/23 Feeling nervous, anxious, or on edge: 0 = Not at all Not being able to stop or control worryin = Not at all Worrying too much about different things: 0 = Not at all Trouble relaxin = Not at all Being so restless that it is hard to sit still: 0 = Not at all Becoming easily annoyed or irritable: 0 = Not at all Feeling afraid as if something awful might happen: 0 = Not at all Total TORRES-7 score (0-4 normal; 5-9 mild; 10-14 moderate; 15-21 severe): 0 Source: Developed by Drs. Golden Gaines, Chacho Calvin and colleagues, with an educational ghassan from [employer]. Review of Systems Const Reports difficulty sleeping (at times), Denies fatigue, Denies fever(s) and Denies headache(s) ENT Denies dysphagia, Denies dizziness, Denies otalgia, Denies headache(s), Denies neck pain, Denies odynophagia, Reports tinnitus (on and off) and Reports sore throat (mild, on and off) Card Denies chest pain, Denies palpitations and Denies dyspnea Resp Denies cough, Denies dyspnea and Denies wheezing GI Denies abdominal pain, Denies constipation, Denies dysphagia, Denies heartburn, Denies diarrhea, Denies nausea, Denies odynophagia and Denies vomiting Denies dysuria, Denies nocturia and Denies urinary frequency Musc Denies neck pain Skin/Breast Denies rash Neuro Denies dizziness and Denies headache(s) Endo Denies fatigue and Denies palpitations Aller/Immun Denies wheezing Physical exam (Primary Care) Vital Signs: Last Vital Signs Pulse 50 12/30/23 16:51 BP 118/62 12/30/23 16:51 Pulse Ox 98 12/30/23 16:51 Oxygen Delivery Method Room Air 12/30/23 16:51 BMI result Body Mass Index 25.0 Tobacco/Smoking Status: Tobacco use Status Tobacco use date assessed 12/30/23 12/30/23 16:52 Patient Tobacco Use Status Never used Tobacco 12/30/23 16:52 e-Cigarette/Vaping Use Never Used 12/30/23 16:52 PHQ-9: PHQ-9 Score PHQ-9: Total score 0 12/31/23 03:58 Depression Screening Interpretation: Negative Thrive Assessment: Date of Thrive Assessment Date Thrive assessed 12/30/23 12/30/23 16:52 Currently or been in a relationship where the following occur: no concerns reported Const General: no acute distress and alert HENMT Ears: TM's normal bilaterally and EAC's normal Throat: Yes posterior oropharynx normal and Yes tonsils normal Neck Neck: Yes no lymphadenopathy and Yes supple Thyroid: Thyroid normal Resp Auscultation: clear to auscultation bilaterally, no rales and no wheezes Cardio Rate: regular rate Rhythm: regular rhythm Heart sounds: Murmur heart sound present systolic soft, II/ and at the apex GI Palpation (GI): Soft to palpation and nontender Auscultation: normal bowel sounds General: Yes no CVA tenderness Back/Spine/Pelvis Back: no CVA tenderness Skin Rashes: no rashes Extrem General: Yes no clubbing, cyanosis or edema Results Reviewed Results Reviewed: Laboratory Tests 11/05/23 11/05/23 11/14/23 08:37 08:37 07:35 WBC 4.4 L Hgb 12.1 L Hct 37.6 L Plt Count 164 Sodium 140 Potassium 4.9 Creatinine 1.21 Estimated GFR 58 Fasting Glucose 94 Calcium 9.4 AST 19 ALT 13 Triglycerides 59 Cholesterol 167 LDL Cholesterol, Calc 82 HDL Cholesterol 74 TSH 2.97 Ur Specific [place] 1.015 Urine Protein Negative Urine Glucose (UA) Negative Urine Blood Trace H Urine Nitrite Negative Ur Leukocyte Esterase 11/14/23 07:35 WBC Hgb Hct Plt Count Sodium Potassium Creatinine Estimated GFR Fasting Glucose Calcium AST ALT Triglycerides Cholesterol LDL Cholesterol, Calc HDL Cholesterol TSH Ur Specific [place] Urine Protein Urine Glucose (UA) Urine Blood Urine Nitrite Ur Leukocyte Esterase Negative Assessment and Plan Assessment & Plan (1) Coronary artery disease: Code(s): I25.10 - Atherosclerotic heart disease of [place] coronary artery without angina pectoris Qualifiers: Associated angina: with stable angina Coronary Disease-Associated Artery/Lesion type: [place] artery [place] vs. transplanted heart: [place] heart Qualified Code(s): I25.118 - Atherosclerotic heart disease of [place] coronary artery with other forms of angina pectoris Plan: Patient has been asymptomatic lately from a cardiac standpoint Continue Isosorbide Moninitrate ER 120 mg QD, Metoprolol ER 100 mg QD and Aspirin 81 mg QD Patient has Nitroglycerin 0.4 mg SL tablets that he takes as needed for chest pains Follow up with cardiology as scheduled (2) Cardiac murmur: Code(s): R01.1 - Cardiac murmur, unspecified Plan: Currently still has a soft, systolic murmur heard best at the cardiac apex - ? flow murmur ? Echocardiogram done in August 2022 revealed a normal left ventricular systolic function with a calculated ejection fraction of 62%. There is moderate to severe focal septal hypertrophy BUT no obvious valvular pathology seen (3) Benign essential hypertension: Code(s): I10 - Essential (primary) hypertension Plan: Reinforced low sodium diet - goal is systolic BP of at least 140 mm or less Continue Metoprolol ER 100 mg QD and Amlodipine 10 mg QD Patient is reminded to continue monitoring his blood pressure regularly (4) Pure hypercholesterolemia: Code(s): E78.00 - Pure hypercholesterolemia, unspecified Plan: Results of his labs done a few weeks ago reviewed and discussed with patient Reinforced low cholesterol diet Continue Rosuvastatin 20 mg QD Will recheck his labs and fasting lipids in 4 months for follow up (5) Pancytopenia: Code(s): D61.818 - Other pancytopenia Plan: His H/H remains stable on his recent labs - will continue to monitor his CBC regularly Hematology evaluations in the past have all been unremarkable - 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 (6) GERD without esophagitis: Code(s): K21.9 - Gastro-esophageal reflux disease without esophagitis Plan: Dietary restrictions reinforced He has been on Omeprazole 20 mg QD for years but due to his recent recurrent sore throat (which is likely due to acid reflux), will try switching him over to Pantoprazole 40 mg QD to see if this will help better and clear up his sore throat symptoms Follow up with GI as scheduled (7) Vitamin D deficiency: Code(s): E55.9 - Vitamin D deficiency, unspecified Plan: Continue Vitamin D3 2000 units QD (8) Primary osteoarthritis of both hips: Comment: X-rays of both hips done last year showed (+) moderate OA in the right hip and mild OA changes in the left Code(s): M16.0 - Bilateral primary osteoarthritis of hip Plan: S/P total right hip arthroplasty by Dr. Stevens in March 2021 with significant improvement of his hip pain Left hip pain has been well-controlled/managed mostly Follow-up with orthopedics as scheduled (9) Primary osteoarthritis of knees, bilateral: Code(s): M17.0 - Bilateral primary osteoarthritis of knee Plan: Continue Acetaminophen 650 mg Q 6 to 8 hours as needed for pain Follow-up with orthopedics as scheduled (10) Elevated PSA: Code(s): R97.20 - Elevated prostate specific antigen [PSA] Plan: His PSA was normal when last checked in March 2023 Follow up with urology as scheduled Plan Follow up in 4 months Orders: Orders Complete Blood Count Auto Diff 4 Months D64.9 - Anemia, unspecified TSH reflex Free T4 4 Months E78.00 - Pure hypercholesterolemia, unspecified UA CC w/rflx Micro + Cult 4 Months R30.0 - Dysuria Comprehensive [place]. Panel Fast 4 Months E78.00 - Pure hypercholesterolemia, unspecified Lipid Panel 4 Months E78.00 - Pure hypercholesterolemia, unspecified Medications: New pantoprazole 40 mg PO DAILY 90 days 90 tabs 3RF Discontinued omeprazole Discontinued Reason: Doctor's Order 20 mg PO DAILY 90 days 90 caps 3RF K21.9 - Gastro-esophageal reflux disease without esophagitis Coding Level of Care Code Est Pt Level 4 (43095) Diagnoses Coronary artery disease of [place] artery of [place] heart with stable angina pectoris I25.118 Associated angina: with stable angina Coronary Disease-Associated Artery/Lesion type: [place] artery [place] vs. transplanted heart: [place] heart Cardiac murmur R01.1 Benign essential hypertension I10 Pure hypercholesterolemia E78.00 Pancytopenia D61.818 GERD without esophagitis K21.9 Vitamin D deficiency E55.9 Primary osteoarthritis of both hips M16.0 Primary osteoarthritis of knees, bilateral M17.0 Elevated PSA R97.20
== END 2023-12-30 17:33 | disposition home or self-care (01) ==
PROVIDERS: PCP Internal Medicine; Visit Provider Internal Medicine
DX: I25.118 Atherosclerotic heart disease of native coronary artery with other forms of angina pectoris (principal); D61.818 Other pancytopenia; R01.1 Cardiac murmur, unspecified; I10 Essential (primary) hypertension; E78.00 Pure hypercholesterolemia, unspecified; K21.9 Gastro-esophageal reflux disease without esophagitis; E55.9 Vitamin D deficiency, unspecified; M16.0 Bilateral primary osteoarthritis of hip; M17.0 Bilateral primary osteoarthritis of knee; R97.20 Elevated prostate specific antigen [PSA]
CPT/HCPCS: 99214

== ENCOUNTER 2024-04-30 06:58 | Outpatient (REF) | payer BC, SELFPAY ==
[2024-04-30 07:07] LABS: MANUAL DIFF FLAG NO
[2024-04-30 08:10] LABS: Basophils Percent Auto 0.5 % (0-2); Eosinophils Absolute Auto 0.2 X10*3/uL (0.0-0.4); Eosinophils Percent Auto 5.9 % (0-4); Hematocrit 37.3 % (42.0-52.0); Hemoglobin 12.6 g/dl (14.0-18.0); Mean Corpuscular HGB Conc 33.8 g/dl (31.0-36.0); Mean Corpuscular Hemoglobin 31.4 pg (27.0-33.0); Mean Platelet Volume 11.8 fL (9.4-12.4); Monocytes Absolute Auto 0.2 X10*3/uL (0.1-1.2); Monocytes Percent Auto 5.9 % (2-11); Neutrophils Absolute Auto 1.6 x10*3/uL (2.0-8.3); Neutrophils Percent Auto 39.7 % (45-73); Platelet Count 192 X10*3/uL (160-400); Red Blood Count 4.01 X10*6/uL (4.60-5.80); Red Cell Distribution Width 12.5 % (11.0-16.0); White Blood Count 4.1 X10*3/uL (4.8-10.8)
[2024-04-30 08:24] LABS: Appearance Urine Clear; Color Urine Yellow; Glucose Urine UA Negative (Negative); Leukocyte Esterase Urine Negative (Negative); Nitrite Urine Negative (Negative); PH 6.5 (5.0-9.0); Specific Gravity - Urine 1.015 (1.005-1.025); Urine Blood Negative (Negative); Urine Ketones Negative (Negative); Urine Protein Negative (Neg-Trace)
[2024-04-30 08:40] LABS: Alanine Aminotransferase 14 U/L (0-40); Albumin Level 4.4 g/dL (3.5-5.0); Alkaline Phosphatase 48 U/L (39-117); Anion Gap 10 (12-20); Aspartate Amino Transferase 19 U/L (5-37); Bilirubin Total 0.5 mg/dL (0.0-1.0); Blood Urea Nitrogen 23 mg/dL (9-16); Calcium 9.4 mg/dL (8.4-10.2); Carbon Dioxide 30 mmol/L (22-29); Chloride 105 mmol/L (96-108); Cholesterol 120 mg/dL (<200); Estimated Glomerular Filt Rate 48; Glucose Fasting 90 mg/dL (60-99); HDL Cholesterol 46 mg/dL (>40); LDL Cholesterol Calculated 62 mg/dL (<100); Potassium 4.6 mmol/L (3.3-5.1); Sodium 140 mmol/L (135-145); Total Protein 7.7 g/dL (6.5-8.0); Triglycerides 60 mg/dL (<150)
[2024-04-30 09:00] LABS: TSH reflex Free T4 1.64 uIU/mL (0.32-4.0)
== END 2024-04-30 06:59 | disposition home or self-care (01) ==
LOC: HO.LAB 06:58
PROVIDERS: PCP Internal Medicine; Visit Provider Internal Medicine
DX: E78.00 Pure hypercholesterolemia, unspecified (principal); R30.0 Dysuria; D64.9 Anemia, unspecified
CPT/HCPCS: 36415; 80053; 80061; 81003; 84443; 85025

== ENCOUNTER 2024-05-04 10:35 | Outpatient (AMB) | payer BC, SELFPAY ==
--- NOTE | 2024-05-04 10:42 | A.OFFPC_ITS ---
Vital Signs 05/04/24 10:43 Height 5 ft 9 in Weight 163 lb 4 oz BMI 24.1 BP 120/64 Blood Pressure Location Lt brachial Position Sitting Pulse 60 Pulse Source Pulse Oximeter Pulse Oximetry (%) 99 Oxygen Delivery Method Room Air Intake Visit Reasons: hyperlipidemia Intake Note: Patient is here to follow up on HLD. Academic Manager Required: No Rn Paralegal: Not Required per policy Accompanied by: Self / Same As Patient Allergies dexlansoprazole [From Dexilant] Allergy (Intermediate, Verified 05/04/24 11:18) Stomach Upset Medication List - Last Reconciled 05/04/24 by Kingsley Villar MD acetaminophen 650 mg (2 x 325 mg) PO Q6H PRN 30 days amlodipine 10 mg PO DAILY aspirin 81 mg PO DAILY 90 days cholecalciferol (vitamin D3) 50 mcg PO DAILY 90 days clotrimazole-betamethasone 1-0.05 % 1 appl topical BID 2 weeks isosorbide mononitrate ER 120 mg PO DAILY 90 days metoprolol succinate ER 100 mg PO DAILY 90 days nitroglycerin 0.4 mg sublingual DIRECTED pantoprazole 40 mg PO DAILY 90 days rosuvastatin 20 mg PO DAILY 90 days Tobacco use date assessed: 05/04/24 Fall risk assessment: No Falls in past year Last assessed Fall Risk: 05/04/24 Dental Screening Dental Screen Date: 12/30/23 HPI hyperlipidemia HPI Details Patient comes in today for his follow up visit States that he feels okay Relates that he tested positive for COVID a couple of weeks ago when he returned from [facility] - thought that he likely contracted COVID on the plane on his trip back States that he was experiencing recurrent coughing and had some headaches at the time but he denies any increased SOB Relates that his symptoms have mostly cleared up by now and he tested negative for COVID when he rechecked himself a couple of days ago He denies any headaches or dizziness; denies any sore throat States that his hearing seems to have declined recently - is hoping that his recent bout with COVID did not really affect his hearing He continues to experience frequent ringing sensation in his ears and has also noticed that his ears feel full lately Would like to get a referral to go back and see Dr. Stone for further evaluation and to have his hearing evaluated again He denies any chest pains, no SOB No nausea/vomiting, no abdominal pain No change in bowel habits noted Needs his Pantoprazole Rx refilled - states that he has been out of this for a while now He also could not tolerate Dexilant - states that the Rx made his stomach feel worse (upset stomach) He had his follow up labs done a few days ago - to discuss his results [facility] Medical History Vitamin D deficiency Osteoarthritis of right hip Tick bite of foot COVID-19 vaccine series completed Chronic generalized abdominal pain Tinnitus, bilateral Primary osteoarthritis of knees, bilateral Primary osteoarthritis of both hips Pancytopenia GERD without esophagitis Pure hypercholesterolemia Benign essential hypertension Coronary artery disease Surgical History History of right hip replacement (03/22/21) History of esophagogastroduodenoscopy (EGD) Hx of colonoscopy S/P cardiac catheterization S/P right coronary artery (RCA) stent placement History of cardiac catheterization Family History Father No problems noted. Mother No problems noted. Social History Household Members: Spouse Housing: House Are you a primary lead care manager to a significant other at home: No Do you presently have visiting nurse or other home services: No Alcohol intake: current Alcohol intake frequency: holidays/special occasions only Alcohol type: wine Patient Tobacco Use Status: Never used Tobacco e-Cigarette/Vaping Use: Never Used Second Hand Smoke Exposure: No service: No Current occupational status: employed Cognitive needs: No Hearing needs: No Vision needs: Yes (glasses ) Questionnaire Thrive Questionnaire Date Thrive assessed: 12/30/23 TORRES-7 AMB Questionnaire TORRES-7 Date TORRES - 7 assessed: 12/30/23 Source: Developed by Drs. Golden Gaines, Eugenia Diaz, Chacho Montesinos and colleagues, with an educational ghassan from [employer]. Review of Systems Const Reports difficulty sleeping (at times), Denies fatigue, Denies fever(s) and Denies headache(s) ENT Denies dysphagia, Denies dizziness, Denies otalgia (but ears feel full/congested lately), Denies headache(s), Reports hearing loss, Denies neck pain, Denies odynophagia, Reports tinnitus (on and off) and Denies sore throat Card Denies chest pain, Denies palpitations and Denies dyspnea Resp Denies cough, Denies dyspnea and Denies wheezing GI Denies abdominal pain, Denies constipation, Denies dysphagia, Denies heartburn, Denies diarrhea, Denies nausea, Denies odynophagia and Denies vomiting Denies dysuria, Denies nocturia and Denies urinary frequency Musc Denies neck pain Skin/Breast Denies rash Neuro Denies dizziness and Denies headache(s) Endo Denies fatigue and Denies palpitations Aller/Immun Denies wheezing Physical exam (Primary Care) Vital Signs: Last Vital Signs Pulse 60 05/04/24 10:43 BP 120/64 05/04/24 10:43 Pulse Ox 99 05/04/24 10:43 Oxygen Delivery Method Room Air 05/04/24 10:43 BMI result Body Mass Index 24.1 Tobacco/Smoking Status: Tobacco use Status Tobacco use date assessed 05/04/24 05/04/24 10:47 Patient Tobacco Use Status Never used Tobacco 05/04/24 10:47 e-Cigarette/Vaping Use Never Used 05/04/24 10:47 Thrive Assessment: Date of Thrive Assessment Date Thrive assessed 12/30/23 05/04/24 10:47 Const General: no acute distress and alert HENMT Ears: TM normal on the left (TM is partially visualized), Abnormal EAC present cerumen impaction on the right (completely) and on the left (partially); no EA tenderness and unable to visualize TM on the right Throat: Yes posterior oropharynx normal and Yes tonsils normal Neck Neck: Yes no lymphadenopathy and Yes supple Thyroid: Thyroid normal Resp Auscultation: clear to auscultation bilaterally, no rales and no wheezes Cardio Rate: regular rate Rhythm: regular rhythm Heart sounds: Murmur heart sound present systolic soft, II/ and at the apex GI Palpation (GI): Soft to palpation and nontender Auscultation: normal bowel sounds General: Yes no CVA tenderness Back/Spine/Pelvis Back: no CVA tenderness Skin Rashes: no rashes Extrem General: Yes no clubbing, cyanosis or edema Results Reviewed Results Reviewed: Laboratory Tests 06/25/23 04/30/24 04/30/24 07:48 07:05 07:06 WBC 4.1 L Hgb 12.6 L Hct 37.3 L Plt Count 192 Sodium 140 Potassium 4.6 Creatinine 1.44 H Estimated GFR 48 Fasting Glucose 90 Calcium 9.4 AST 19 ALT 14 Triglycerides 60 Cholesterol 120 LDL Cholesterol, Calc 62 HDL Cholesterol 46 25-OH Vitamin D Total 38.5 TSH 1.64 Ur Specific [place] 1.015 Urine Protein Negative Urine Glucose (UA) Negative Urine Blood Negative Urine Nitrite Negative Ur Leukocyte Esterase Negative Assessment and Plan Assessment & Plan (1) Coronary artery disease: Code(s): I25.10 - Atherosclerotic heart disease of [place] coronary artery without angina pectoris Qualifiers: Coronary Disease-Associated Artery/Lesion type: [place] artery [place] vs. transplanted heart: [place] heart Associated angina: with stable angina Qualified Code(s): I25.118 - Atherosclerotic heart disease of [place] coronary artery with other forms of angina pectoris Plan: Patient has been asymptomatic so far from a cardiac standpoint Continue Isosorbide Moninitrate ER 120 mg QD, Metoprolol ER 100 mg QD and Aspirin 81 mg QD Patient has Nitroglycerin 0.4 mg SL tablets that he takes as needed for chest pains Follow up with cardiology as scheduled (2) Cardiac murmur: Code(s): R01.1 - Cardiac murmur, unspecified Plan: Currently still has a soft, systolic murmur heard best at the cardiac apex - ? flow murmur ? Echocardiogram done in August 2022 revealed a normal left ventricular systolic function with a calculated ejection fraction of 62%. There is moderate to severe focal septal hypertrophy BUT no obvious valvular pathology seen (3) Benign essential hypertension: Code(s): I10 - Essential (primary) hypertension Plan: Reinforced low sodium diet - goal is systolic BP of at least 140 mm or less Continue Metoprolol ER 100 mg QD and Amlodipine 10 mg QD Patient is reminded to continue monitoring his blood pressure regularly (4) Pure hypercholesterolemia: Code(s): E78.00 - Pure hypercholesterolemia, unspecified Plan: Results of his labs done a few days ago reviewed and discussed with patient Reinforced low cholesterol diet Continue Rosuvastatin 20 mg QD Will recheck his labs and fasting lipids in 4 to 6 months for follow up (5) Pancytopenia: Code(s): D61.818 - Other pancytopenia Plan: His H/H remains stable on his recent labs - will continue to monitor his CBC regularly Hematology evaluations in the past have all been unremarkable - 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 (6) Renal insufficiency: Code(s): N28.9 - Disorder of kidney and ureter, unspecified Plan: Have advised patient that his renal function appears to have declined from previous on his recent labs Discussed that this could be mostly due to his abe COVID a couple of weeks ago Have advised him to make sure he increases his oral fluid intake regularly and will have him recheck his renal function/GFR in 1 week to ensure that this is back to his baseline (7) GERD without esophagitis: Code(s): K21.9 - Gastro-esophageal reflux disease without esophagitis Plan: Dietary restrictions reinforced Continue Pantoprazole 40 mg QD - his recurrent sore throat appears to have improved after he was switched from his previous Omeprazole 20 mg QD Follow up with GI as scheduled (8) Vitamin D deficiency: Code(s): E55.9 - Vitamin D deficiency, unspecified Plan: Continue Vitamin D3 2000 units QD (9) Primary osteoarthritis of both hips: Comment: X-rays of both hips done last year showed (+) moderate OA in the right hip and mild OA changes in the left Code(s): M16.0 - Bilateral primary osteoarthritis of hip Plan: S/P total right hip arthroplasty by Dr. Stevens in March 2021 with significant improvement of his hip pain His left hip pain has been well-controlled/managed mostly Follow-up with orthopedics as scheduled (10) Primary osteoarthritis of knees, bilateral: Code(s): M17.0 - Bilateral primary osteoarthritis of knee Plan: Continue Acetaminophen 650 mg Q 6 to 8 hours as needed for pain Follow-up with orthopedics as scheduled (11) Elevated PSA: Code(s): R97.20 - Elevated prostate specific antigen [PSA] Plan: His PSA was normal when last checked in March 2023 Follow up with urology as scheduled (12) Hearing loss: Code(s): H91.90 - Unspecified hearing loss, unspecified ear Qualifiers: Hearing loss type: unspecified Laterality: unspecified laterality Qualified Code(s): H91.90 - Unspecified hearing loss, unspecified ear Plan: Per request, will refer him to Dr. Stone (he has seen Dr. Stone in the past) for further evaluation of his hearing loss (will need to have his hearing reassessed) as well as for his tinnitus and impacted cerumen Will also send in Rx for Debrox ear drops for him to start using in the meantime Plan Follow up in 4 to 6 months - patient states that it will likely be October 2024 when he returns as he is scheduled to leave for [facility] again in the fall (around July 2024) and will not be back until early October 2024 Orders: Orders Complete Blood Count Auto Diff 10/24/24 D64.9 - Anemia, unspecified Comprehensive [place]. Panel Fast 10/24/24 E78.00 - Pure hypercholesterolemia, unspecified Lipid Panel 10/24/24 E78.00 - Pure hypercholesterolemia, unspecified TSH reflex Free T4 10/24/24 E78.00 - Pure hypercholesterolemia, unspecified UA CC w/rflx Micro + Cult 10/24/24 R30.0 - Dysuria Basic Metabolic Panel 1 Week N28.9 - Disorder of kidney and ureter, unspecified Vitamin D 25-OH Total 10/24/24 E55.9 - Vitamin D deficiency, unspecified Referrals Ear/Nose/Throat Referral H61.23 - Impacted cerumen, bilateral, H91.90 - Unspecified hearing loss, unspecified ear, H93.13 - Tinnitus, bilateral Medications: New carbamide peroxide 6.5% (Debrox) 5 drps otic (ears) DAILY 7 days 15 mL 0RF Refilled pantoprazole 40 mg PO DAILY 90 days 90 tabs 3RF Coding Level of Care Code Est Pt Level 4 (42793) Complex EM visit Add On G2211 Diagnoses Coronary artery disease of [place] artery of [place] heart with stable angina pectoris I25.118 Coronary Disease-Associated Artery/Lesion type: [place] artery [place] vs. transplanted heart: [place] heart Associated angina: with stable angina Cardiac murmur R01.1 Benign essential hypertension I10 Pure hypercholesterolemia E78.00 Pancytopenia D61.818 Renal insufficiency N28.9 GERD without esophagitis K21.9 Vitamin D deficiency E55.9 Primary osteoarthritis of both hips M16.0 Primary osteoarthritis of knees, bilateral M17.0 Elevated PSA R97.20 Hearing loss, unspecified hearing loss type, unspecified laterality H91.90 Hearing loss type: unspecified Laterality: unspecified laterality
[2024-05-04 10:43] VITALS: BP 120/64; PULSE 60; O2SAT 99; BMI 24.1
== END 2024-05-04 11:35 | disposition home or self-care (01) ==
PROVIDERS: PCP Internal Medicine; Visit Provider Internal Medicine
DX: I25.118 Atherosclerotic heart disease of native coronary artery with other forms of angina pectoris (principal); D61.818 Other pancytopenia; R01.1 Cardiac murmur, unspecified; I10 Essential (primary) hypertension; E78.00 Pure hypercholesterolemia, unspecified; N28.9 Disorder of kidney and ureter, unspecified; K21.9 Gastro-esophageal reflux disease without esophagitis; E55.9 Vitamin D deficiency, unspecified; M16.0 Bilateral primary osteoarthritis of hip; M17.0 Bilateral primary osteoarthritis of knee; R97.20 Elevated prostate specific antigen [PSA]; H91.93 Unspecified hearing loss, bilateral
CPT/HCPCS: 99214

== ENCOUNTER 2024-05-14 08:14 | Outpatient (REF) | payer BC, SELFPAY ==
[2024-05-14 09:22] LABS: Anion Gap 12 (12-20); Blood Urea Nitrogen 20 mg/dL (9-16); Carbon Dioxide 28 mmol/L (22-29); Chloride 106 mmol/L (96-108); Estimated Glomerular Filt Rate 51; Glucose Random 61 mg/dL (60-115); Potassium 4.9 mmol/L (3.3-5.1); Sodium 141 mmol/L (135-145)
== END 2024-05-14 08:15 | disposition home or self-care (01) ==
LOC: HO.LAB 08:14
PROVIDERS: Urology; PCP Internal Medicine; Visit Provider Internal Medicine
DX: N28.9 Disorder of kidney and ureter, unspecified (principal); N40.1 Benign prostatic hyperplasia with lower urinary tract symptoms; Z12.5 Encounter for screening for malignant neoplasm of prostate
CPT/HCPCS: 36415; 80048; 84153

== ENCOUNTER 2024-10-17 07:31 | Outpatient (REF) | payer MEDICARE, SELFPAY ==
[2024-10-17 07:55] LABS: MANUAL DIFF FLAG NO
[2024-10-17 08:14] LABS: Appearance Urine Clear; Color Urine Yellow; Glucose Urine UA Negative (Negative); Leukocyte Esterase Urine Negative (Negative); Nitrite Urine Negative (Negative); PH 6.5 (5.0-9.0); Specific Gravity - Urine 1.015 (1.005-1.025); UMIC TRIGGER UACC YES; Urine Blood Trace (Negative); Urine Ketones Negative (Negative); Urine Protein Negative (Neg-Trace)
[2024-10-17 08:17] LABS: Basophils Percent Auto 0.3 % (0-2); Eosinophils Absolute Auto 0.2 X10*3/uL (0.0-0.4); Eosinophils Percent Auto 4.9 % (0-4); Hematocrit 36.9 % (42.0-52.0); Hemoglobin 12.4 g/dl (14.0-18.0); Imm Gran Abs Auto 0.01 X10*3/uL (0.00-0.03); Imm Gran Pct Auto 0.3 % (0.0-0.4); Lymphocytes Absolute Auto 1.8 X10*3/uL (1.2-4.9); Lymphocytes Percent Auto 46.5 % (20-40); Mean Corpuscular HGB Conc 33.6 g/dl (31.0-36.0); Mean Corpuscular Volume 95.3 fL (80.0-98.0); Monocytes Absolute Auto 0.4 X10*3/uL (0.1-1.2); Neutrophils Absolute Auto 1.5 x10*3/uL (2.0-8.3); Platelet Count 156 X10*3/uL (160-400); Red Blood Count 3.87 X10*6/uL (4.60-5.80); Red Cell Distribution Width 12.7 % (11.0-16.0); White Blood Count 3.9 X10*3/uL (4.8-10.8)
[2024-10-17 08:19] LABS: Bacteria Urine None Seen (None Seen); Hyaline Casts Urine 0-2 /LPF (0-2); RBC Urine 0-2 /HPF (0-2); Squamous Epithelial Cell Urine 0-2 /HPF (0-2); WBC Urine 0-5 /HPF (0-5)
[2024-10-17 09:01] LABS: Alanine Aminotransferase 13 U/L (0-40); Alkaline Phosphatase 38 U/L (39-117); Anion Gap 10 (12-20); Aspartate Amino Transferase 22 U/L (5-37); Bilirubin Total 0.6 mg/dL (0.0-1.0); Blood Urea Nitrogen 18 mg/dL (9-16); Calcium 9.1 mg/dL (8.4-10.2); Carbon Dioxide 29 mmol/L (22-29); Chloride 107 mmol/L (96-108); Cholesterol 137 mg/dL (<200); Estimated Glomerular Filt Rate 47; Glucose Fasting 93 mg/dL (60-99); HDL Cholesterol 63 mg/dL (>40); LDL Cholesterol Calculated 64 mg/dL (<100); Sodium 141 mmol/L (135-145); Total Protein 6.8 g/dL (6.5-8.0); Triglycerides 51 mg/dL (<150)
[2024-10-17 09:17] LABS: PSA,Total (Free>4and<10) 3.63 ng/mL (0.00-4.00)
[2024-10-17 09:19] LABS: TSH reflex Free T4 2.21 uIU/mL (0.32-4.0); Vitamin D 25-OH Total 40.1 ng/mL (>30)
== END 2024-10-17 07:32 | disposition home or self-care (01) ==
LOC: HO.LAB 07:31
PROVIDERS: PCP Internal Medicine; Referring Provider Internal Medicine; Visit Provider Urology
DX: D64.9 Anemia, unspecified (principal); E78.00 Pure hypercholesterolemia, unspecified; E55.9 Vitamin D deficiency, unspecified; N40.0 Benign prostatic hyperplasia without lower urinary tract symptoms; Z12.5 Encounter for screening for malignant neoplasm of prostate; R30.0 Dysuria
CPT/HCPCS: 36415; 80053; 80061; 81001; 82306; 84153; 84443; 85025

== ENCOUNTER 2024-11-04 09:30 | Outpatient (AMB) | payer BC, SELFPAY ==
[2024-11-04 09:32] VITALS: BP 110/58; PULSE 57; TEMP 36.4; O2SAT 98; BMI 24.2
--- NOTE | 2024-11-04 09:32 | MHC.PC.OV ---
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 Accompanied by: Self / Same As Patient Allergies dexlansoprazole [From Dexilant] Allergy (Intermediate, Verified 11/04/24 10:28) Stomach Upset Medication List - Last Reconciled 11/04/24 by Kingsley Villar MD acetaminophen 650 mg (2 x 325 mg) PO Q6H PRN 30 days amlodipine 10 mg PO DAILY aspirin 81 mg PO DAILY 90 days cholecalciferol (vitamin D3) 50 mcg PO DAILY 90 days clotrimazole-betamethasone 1-0.05 % 1 appl topical BID 2 weeks isosorbide mononitrate ER 120 mg PO DAILY 90 days metoprolol succinate ER 100 mg PO DAILY 90 days nitroglycerin 0.4 mg sublingual DIRECTED pantoprazole 40 mg PO DAILY 90 days rosuvastatin 20 mg PO DAILY 90 days Tobacco use date assessed: 11/04/24 Fall risk assessment: No Falls in past year Last assessed Fall Risk: 11/04/24 Dental Screening Dental Screen Date: 11/04/24 Did you have a dental visit in the last 12 months?: Yes Did you have a dental problem in the last 6 months where you did not have access to dental care?: No Was dental information given to patient?: Patient has dentist HPI hyperlipidemia, HTN, GERD HPI Details Patient comes in today for his follow up visit States that he feels okay except for increased low back pain with radiation down into his right hip area posteriorly for the past couple of weeks Thinks that he may have pulled a muscle in his lower back when he was doing some stretching exercises about 2 weeks ago States that he has been applying some warm compress over his lower back lately with some relief States that his lower back does not bother him too much at night when he lies down flat on his back but acts up when he turns sideways He denies any headaches or dizziness He denies any chest pains, no SOB No nausea/vomiting, no abdominal pain No change in bowel habits noted States that he just got back from [place] a couple of days before [place] and is scheduled to fly back there in January 2025 and 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 He had his follow up labs done a few weeks ago - to discuss his results [facility] Medical History Vitamin D deficiency Osteoarthritis of right hip Tick bite of foot COVID-19 vaccine series completed Chronic generalized abdominal pain Tinnitus, bilateral Primary osteoarthritis of knees, bilateral Primary osteoarthritis of both hips Pancytopenia GERD without esophagitis Pure hypercholesterolemia Benign essential hypertension Coronary artery disease Surgical History History of right hip replacement (03/22/21) History of esophagogastroduodenoscopy (EGD) Hx of colonoscopy S/P cardiac catheterization S/P right coronary artery (RCA) stent placement History of cardiac catheterization Family History Father No problems noted. Mother No problems noted. Social History Household Members: Spouse Housing: House Are you a primary career development director to a significant other at home: No Do you presently have visiting nurse or other home services: No Alcohol intake: current Alcohol intake frequency: holidays/special occasions only Alcohol type: wine Patient Tobacco Use Status: Never used Tobacco e-Cigarette/Vaping Use: Never Used Second Hand Smoke Exposure: No service: No Current occupational status: employed Cognitive needs: No Hearing needs: No Vision needs: Yes (glasses ) Questionnaire PHQ-9 Over the last 2 weeks, how often have you been bothered by any of the following problems? 1. Little interest or pleasure in doing things: not at all 2. Feeling down, depressed, or hopeless: not at all 3. Trouble falling or staying asleep, or sleeping too much: not at all 4. Feeling tired or having little energy: not at all 5. Poor appetite or overeating: not at all 6. Feeling bad about yourself - or that you are a failure or have let yourself or your family down: not at all 7. Trouble concentrating on things, such as reading the newspaper or watching television: not at all 8. Moving or speaking so slowly that other people could have noticed. Or the opposite - being so fidgety or restless that you have been moving around a lot more than usual: not at all 9. Thoughts that you would be better off or of hurting yourself in some way: not at all Total score: 0 Depression Screening Interpretation: Negative Depression Screening Done: Yes [id number] - PHQ-9 Billing: Yes Source: Developed by Drs. Golden Gaines, Eugenia Diaz, Chacho Montesinos and colleagues, with an educational ghassan from [employer]. Thrive Questionnaire Date Thrive assessed: 11/04/24 I am a: Patient What is your living situation today?: I have a steady place to live Within the past 12 months, did the food you bought not last and you didn't have the money to get more?: Never true Within the past 12 months, did you worry whether your food would run out before you got money to buy more?: Never true Do you have trouble paying for medicines?: No Do you have trouble getting transportation to medical appointments?: No Do you have trouble paying your heating and electricity bill?: No Do you have trouble taking care of your child, family member or friend?: No Do you have trouble with day-to-day activities such as bathing, preparing meals, shopping, managing finances, etc.?: No Are you currently unemployed and looking for a job?: No Are you interested in more education?: No Please select the resources that you would like help with: None Currently or been in a relationship where the following occur: No concerns reported THRIVE Score: 0 AUDIT C Alcohol Use Questionnaire (AUDIT-C) 1. How often do you have a drink containing alcohol?: Never 3. How often do you have six or more drinks on one occasion?: Never Total Score: 0 Score Reviewed/Action Taken: Yes TORRES-7 AMB Questionnaire TORRES-7 Date TORRES - 7 assessed: 11/04/24 Feeling nervous, anxious, or on edge: 0 = Not at all Not being able to stop or control worryin = Not at all Worrying too much about different things: 0 = Not at all Trouble relaxin = Not at all Being so restless that it is hard to sit still: 0 = Not at all Becoming easily annoyed or irritable: 0 = Not at all Feeling afraid as if something awful might happen: 0 = Not at all Total TORRES-7 score (0-4 normal; 5-9 mild; 10-14 moderate; 15-21 severe): 0 Source: Developed by Drs. Golden Gaines, Eugenia Diaz, Chacho Montesinos and colleagues, with an educational ghassna from [employer]. Review of Systems Const Reports difficulty sleeping (at times), Denies fatigue, Denies fever(s) and Denies headache(s) ENT Denies dysphagia, Denies dizziness, Denies otalgia, Denies headache(s), Reports hearing loss, Denies neck pain, Denies odynophagia, Reports tinnitus (on and off) and Denies sore throat Card Denies chest pain, Denies palpitations and Denies dyspnea Resp Denies chest congestion, Denies cough and Denies dyspnea GI Denies abdominal pain, Denies constipation, Denies dysphagia, Denies heartburn, Denies diarrhea, Denies nausea, Denies odynophagia and Denies vomiting Denies dysuria, Denies nocturia and Denies urinary frequency Musc Reports back pain (over the lower back for the past 2 weeks - see HPI) and Denies neck pain Skin/Breast Denies rash Neuro Denies dizziness and Denies headache(s) Psych Denies anxiety Endo Denies fatigue and Denies palpitations Physical exam (Primary Care) Vital Signs: Last Vital Signs Temp 97.5 F 11/04/24 09:32 Pulse 57 11/04/24 09:32 BP 110/58 L 11/04/24 09:32 Pulse Ox 98 11/04/24 09:32 Oxygen Delivery Method Room Air 11/04/24 09:32 BMI result Body Mass Index 24.2 Tobacco/Smoking Status: Tobacco use Status Tobacco use date assessed 11/04/24 11/04/24 09:36 Patient Tobacco Use Status Never used Tobacco 11/04/24 09:36 e-Cigarette/Vaping Use Never Used 11/04/24 09:36 PHQ-9: PHQ-9 Score PHQ-9: Total score 0 11/04/24 10:54 Depression Screening Interpretation: Negative Thrive Assessment: Date of Thrive Assessment Date Thrive assessed 11/04/24 11/04/24 09:36 Currently or been in a relationship where the following occur: No concerns reported Const General: no acute distress and alert HENMT Ears: TM's normal bilaterally and EAC's normal Throat: Yes posterior oropharynx normal and Yes tonsils normal Neck Neck: Yes supple and No lymphadenopathy Thyroid: Thyroid normal Resp Auscultation: clear to auscultation bilaterally, no rales and no wheezes Cardio Rate: regular rate Rhythm: regular rhythm Heart sounds: Murmur heart sound present systolic soft, II/ and at the apex GI Palpation (GI): Soft to palpation and nontender Auscultation: normal bowel sounds General: Yes no CVA tenderness Back/Spine/Pelvis Back: no CVA tenderness Thoracic/Lumbar Spine: paraspinal muscle tenderness on the right in the mid lumbar and in the lower lumbar and No lumbar spinal tenderness Skin Rashes: no rashes Extrem General: Yes no clubbing, cyanosis or edema Results Reviewed Results Reviewed: Laboratory Tests 10/17/24 10/17/24 07:49 07:52 WBC 3.9 L Hgb 12.4 L Hct 36.9 L Plt Count 156 L Sodium 141 Potassium 5.0 Creatinine 1.46 H Estimated GFR 47 Fasting Glucose 93 Calcium 9.1 AST 22 ALT 13 Triglycerides 51 Cholesterol 137 LDL Cholesterol, Calc 64 HDL Cholesterol 63 Total PSA 3.63 25-OH Vitamin D Total 40.1 TSH 2.21 Ur Specific [place] 1.015 Urine Protein Negative Urine Glucose (UA) Negative Urine Blood Trace H Urine Nitrite Negative Ur Leukocyte Esterase Negative Coding Level of Care Code Est Pt Level 4 (00648) Complex EM visit Add On G2211 Diagnoses Coronary artery disease of samish artery of samish heart with stable angina pectoris I25.118 Coronary Disease-Associated Artery/Lesion type: samish artery [place] vs. transplanted heart: samish heart Associated angina: with stable angina Cardiac murmur R01.1 Benign essential hypertension I10 Pure hypercholesterolemia E78.00 Pancytopenia D61.818 Renal insufficiency N28.9 GERD without esophagitis K21.9 Vitamin D deficiency E55.9 Primary osteoarthritis of both hips M16.0 Primary osteoarthritis of knees, bilateral M17.0 Elevated PSA R97.20 Acute myofascial strain of lumbar region, initial encounter S39.012A Encounter type: initial encounter Additional Codes PHQ-9 - 09656 - PHQ-9 Billing: Yes ([id number]) Assessment & Plan Assessment & Plan (1) Coronary artery disease: Code(s): I25.10 - Atherosclerotic heart disease of samish coronary artery without angina pectoris Category: Medical Qualifiers: Coronary Disease-Associated Artery/Lesion type: samish artery [place] vs. transplanted heart: samish heart Associated angina: with stable angina Qualified Code(s): I25.118 - Atherosclerotic heart disease of samish coronary artery with other forms of angina pectoris Plan: Patient has been asymptomatic so far from a cardiac standpoint Continue Isosorbide Moninitrate ER 120 mg QD, Metoprolol ER 100 mg QD and Aspirin 81 mg QD Patient has Nitroglycerin 0.4 mg SL tablets that he takes as needed for chest pains although he states that he has not had to take these in a while now Follow up with cardiology as scheduled (2) Cardiac murmur: Code(s): R01.1 - Cardiac murmur, unspecified Category: Medical Plan: Patient currently still has a soft, systolic murmur heard best at the cardiac apex - may be possibly a flow murmur due to his thin body habitus and likely close proximity of his heart to his anterior chest wall Echocardiogram done back in August 2022 revealed (+) normal left ventricular systolic function with a calculated ejection fraction of 62%. There is moderate to severe focal septal hypertrophy BUT no obvious valvular pathology seen (3) Benign essential hypertension: Code(s): I10 - Essential (primary) hypertension Category: Medical Plan: Reinforced low sodium diet - goal is systolic BP of at least 140 mm or less Continue Metoprolol ER 100 mg QD and Amlodipine 10 mg QD Patient is reminded to continue monitoring his blood pressure regularly (4) Pure hypercholesterolemia: Code(s): E78.00 - Pure hypercholesterolemia, unspecified Category: Medical Plan: Results of his labs done a few weeks ago reviewed and discussed with patient Reinforced low cholesterol diet Continue Rosuvastatin 20 mg QD Will recheck his labs and fasting lipids in about 6 months for follow up (5) Pancytopenia: Code(s): D61.818 - Other pancytopenia Category: Medical Plan: His H/H remains stable on his recent labs - will continue to monitor his CBC regularly Hematology evaluations in the past have all been unremarkable and he has been advised that this 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 (6) Renal insufficiency: Code(s): N28.9 - Disorder of kidney and ureter, unspecified Category: Medical Plan: Patient's renal function appears stable on his recent labs although his numbers place him now in early stage 3 CKD Have reminded him to make sure he keeps up with his oral fluid intake and to maintain adequate hydration, especially when he is in [place] Will continue to monitor his renal function closely/regularly (7) GERD without esophagitis: Code(s): K21.9 - Gastro-esophageal reflux disease without esophagitis Category: Medical Plan: Dietary restrictions reinforced Continue Pantoprazole 40 mg QD - his previous recurrent sore throat seems to have improved after he was switched from his Omeprazole 20 mg QD over to Pantoprazole last year Follow up with GI as scheduled (8) Vitamin D deficiency: Code(s): E55.9 - Vitamin D deficiency, unspecified Category: Medical Plan: Continue Vitamin D3 2000 units QD (9) Primary osteoarthritis of both hips: Comment: X-rays of both hips done last year showed (+) moderate OA in the right hip and mild OA changes in the left Code(s): M16.0 - Bilateral primary osteoarthritis of hip Category: Medical Plan: S/P total right hip arthroplasty by Dr. Stevens in March 2021 with significant improvement of his hip pain His left hip pain has been mostly well-controlled/managed Follow-up with orthopedics as scheduled (10) Primary osteoarthritis of knees, bilateral: Code(s): M17.0 - Bilateral primary osteoarthritis of knee Category: Medical Plan: Continue Acetaminophen 650 mg Q 6 to 8 hours as needed for pain Follow-up with orthopedics as scheduled (11) Elevated PSA: Code(s): R97.20 - Elevated prostate specific antigen [PSA] Category: Medical Plan: His PSA was normal on his recent labs Follow up with urology as scheduled (12) Acute lumbar myofascial strain: Code(s): S39.012A - Strain of muscle, fascia and tendon of lower back, initial encounter Category: Medical Qualifiers: Encounter type: initial encounter Qualified Code(s): S39.012A - Strain of muscle, fascia and tendon of lower back, initial encounter Plan: Patient thinks that he pulled his right lower back (muscles) a couple of weeks ago when he was doing some stretching exercises, and has been applying some warm compress / pain patch over his right lower back lately, with some relief of his symptoms Have advised him to continue with conservative management with heat and pain patches as well as OTC Tylenol PRN Will send in Rx for some Baclofen 20 mg to take TID PRN for his right lower back strain but have cautioned him about the potential for drowsiness as a side effect If his right low back pain does not improve or get worse over the next week or two, can consider referring him to physical therapy Plan Follow up in 6 months Orders: Orders Complete Blood Count Auto Diff 6 Months D64.9 - Anemia, unspecified Comprehensive [place]. Panel Fast 6 Months E78.00 - Pure hypercholesterolemia, unspecified Lipid Panel 6 Months E78.00 - Pure hypercholesterolemia, unspecified TSH reflex Free T4 6 Months E78.00 - Pure hypercholesterolemia, unspecified Vitamin D 25-OH Total 6 Months E55.9 - Vitamin D deficiency, unspecified UA CC w/rflx Micro + Cult 6 Months R30.0 - Dysuria Hemoglobin A1c 6 Months R73.01 - Impaired fasting glucose Medications: New baclofen 20 mg PO TID PRN 30 tabs 2RF low back pain/spasms
== END 2024-11-04 10:44 | disposition home or self-care (01) ==
PROVIDERS: PCP Internal Medicine; Visit Provider Internal Medicine
DX: I25.118 Atherosclerotic heart disease of native coronary artery with other forms of angina pectoris (principal); D61.818 Other pancytopenia; R01.1 Cardiac murmur, unspecified; I10 Essential (primary) hypertension; E78.00 Pure hypercholesterolemia, unspecified; N28.9 Disorder of kidney and ureter, unspecified; K21.9 Gastro-esophageal reflux disease without esophagitis; E55.9 Vitamin D deficiency, unspecified; M16.0 Bilateral primary osteoarthritis of hip; M17.0 Bilateral primary osteoarthritis of knee; R97.20 Elevated prostate specific antigen [PSA]; S39.012A Strain of muscle, fascia and tendon of lower back, initial encounter

== ENCOUNTER → 2024-11-04 09:30 | Outpatient (BNVA) | payer BC, SELFPAY | PROVIDERS: PCP Internal Medicine; Visit Provider Internal Medicine | DX: I25.118 Atherosclerotic heart disease of native coronary artery with other forms of angina pectoris (principal); R01.1 Cardiac murmur, unspecified; I10 Essential (primary) hypertension; E78.00 Pure hypercholesterolemia, unspecified; D61.818 Other pancytopenia; N28.9 Disorder of kidney and ureter, unspecified; K21.9 Gastro-esophageal reflux disease without esophagitis; E55.9 Vitamin D deficiency, unspecified; M16.0 Bilateral primary osteoarthritis of hip; M17.0 Bilateral primary osteoarthritis of knee; R97.20 Elevated prostate specific antigen [PSA]; S39.012A Strain of muscle, fascia and tendon of lower back, initial encounter; Z96.641 Presence of right artificial hip joint; Z79.82 Long term (current) use of aspirin; Z79.899 Other long term (current) drug therapy | CPT/HCPCS: 96127 ==

== ENCOUNTER 2024-11-13 09:43 | Outpatient (REF) | payer BC, SELFPAY ==
[2024-11-13 16:26] LABS: Urine Cytology See Pathology rpt
== END 2024-11-13 09:44 | disposition home or self-care (01) ==
LOC: HO.LAB 09:43
PROVIDERS: PCP Internal Medicine; Visit Provider Urology
DX: R31.29 Other microscopic hematuria (principal); R89.6 Abnormal cytological findings in specimens from other organs, systems and tissues; N40.1 Benign prostatic hyperplasia with lower urinary tract symptoms; R97.20 Elevated prostate specific antigen [PSA]; Z79.82 Long term (current) use of aspirin
CPT/HCPCS: 51798; 81003; 88112

== ENCOUNTER 2024-12-21 09:46 | Outpatient (REF) | payer BC, SELFPAY ==
--- NOTE | ~2024-12-21 | XR_ITS ---
EXAMINATION: XR PELVIS 1-2 VIEWS HISTORY: M25.559 - Pain in unspecified hip COMPARISON: Comparison is made with the prior examination dated 02/28/2023. FINDINGS: A single AP view of the pelvis is submitted. The patient is status post right total hip arthroplasty. The orthopedic comments are in anatomic alignment in this single view. There is no fracture or dislocation. There is mild osteoarthritis of the left hip with superior joint space narrowing and osteophyte formation. There is degenerative disc disease of the lower lumbar spine. The soft tissues are unremarkable. XR/XR pelvis 1-2V IMPRESSION: Status post right total hip arthroplasty. Mild osteoarthritis of the left hip. Electronically signed by: Golden Baires MD 12/21/2024 12:45 PM YVON BERRY
== END 2024-12-21 09:47 | disposition home or self-care (01) ==
LOC: HO.HOSX 09:46
PROVIDERS: Visit Provider Orthopaedic Surgery
DX: M76.899 Other specified enthesopathies of unspecified lower limb, excluding foot (principal); M25.551 Pain in right hip; M16.11 Unilateral primary osteoarthritis, right hip; E55.9 Vitamin D deficiency, unspecified; Z96.641 Presence of right artificial hip joint
CPT/HCPCS: 72170

== ENCOUNTER 2024-12-21 10:39 | Outpatient (AMB) | payer BC, SELFPAY ==
[2024-12-21 10:42] VITALS: BMI 24.2
--- NOTE | 2024-12-21 10:42 | MHC.OFFVIS ---
Vital Signs 12/21/24 10:42 Height 5 ft 9 in Weight 164 lb BMI 24.2 Intake Visit Reasons: OV-RT GT follow up/limited to weight bearing Intake Note: Yamil is a 74 year old male who presents today for a follow up of his right hip s/p Right GT 03/21/2021. Patient reports that he has continued pain and increased pain with weightbearing. At his last visit he was sent for continued PT for Lumbar radiculopathy vs piriformis syndrome. Patient reports that that he has been having pain on the lateral aspect of the hip , but it has increased within the last 6 months. He has increased pain with bending, like when he is tying his shoe Allergies dexlansoprazole [From Dexilant] Allergy (Intermediate, Verified 11/13/24 09:57) Stomach Upset HPI HPI OV-RT GT follow up/limited to weight bearing: Details: Yamil is a 74 year old male who presents today for a follow up of his right hip s/p Right GT 03/21/2021. Patient reports that he has been having pain in his right abductor tendon. I have seen him for this before. He has done physical therapy. He does exercises every day which help him but at the end of the day he has pain. He denies numbness and tingling.. At his last visit he was sent for continued PT for Lumbar radiculopathy vs piriformis syndrome. Patient reports that that he has been having pain on the lateral aspect of the hip , but it has increased within the last 6 months. He has increased pain with bending, like when he is tying his shoe. [facility] Medical History Vitamin D deficiency Osteoarthritis of right hip Tick bite of foot COVID-19 vaccine series completed Chronic generalized abdominal pain Tinnitus, bilateral Primary osteoarthritis of knees, bilateral Primary osteoarthritis of both hips Pancytopenia GERD without esophagitis Pure hypercholesterolemia Benign essential hypertension Coronary artery disease Surgical History History of right hip replacement (03/22/21) History of esophagogastroduodenoscopy (EGD) Hx of colonoscopy S/P cardiac catheterization S/P right coronary artery (RCA) stent placement History of cardiac catheterization Family History Father No problems noted. Mother No problems noted. Social History Household Members: Spouse Housing: House Are you a primary child care group leader to a significant other at home: No Do you presently have visiting nurse or other home services: No Alcohol intake: current Alcohol intake frequency: holidays/special occasions only Alcohol type: wine Patient Tobacco Use Status: Never used Tobacco e-Cigarette/Vaping Use: Never Used Second Hand Smoke Exposure: No service: No Current occupational status: employed Cognitive needs: No Hearing needs: No Vision needs: Yes (glasses ) Physical Exam Vital Signs: BMI result Body Mass Index 24.2 Extrem Other: The pain is reproducible with deep palpation over the abductor tendons of the right hip. No pain with hip range of motion. No groin pain. Results Reviewed Results Reviewed: I personally reviewed relevant radiographs. Stable right total hip arthroplasty with no complications or evidence of loosening. Assessment & Plan Assessment & Plan (1) Hip abductor tendonitis: Code(s): M76.899 - Other specified enthesopathies of unspecified lower limb, excluding foot Category: Medical Plan: Radiographs look good but with persistent abductor tendonitis. I recommend meloxicam trial. Hopefully this will be mild on his stomach as prior NSAIDs have hurt his stomach. Orders: Orders XR pelvis 1-2V 12/21/24 M25.559 - Pain in unspecified hip Medications: New meloxicam 15 mg PO DAILY 30 tabs 2RF Coding Level of Care Code Est Pt Level 3 (62612) Diagnoses Hip abductor tendonitis M76.899
== END 2024-12-21 11:27 | disposition home or self-care (01) ==
PROVIDERS: PCP Internal Medicine; Visit Provider Orthopaedic Surgery
DX: M76.891 Other specified enthesopathies of right lower limb, excluding foot (principal)
CPT/HCPCS: 99213

== ENCOUNTER → 2024-12-21 10:42 | Outpatient (BNV) | payer BC, SELFPAY | PROVIDERS: Visit Provider Radiology Diagnostic Radiology | DX: Z96.641 Presence of right artificial hip joint (principal); M16.12 Unilateral primary osteoarthritis, left hip | CPT/HCPCS: 72170 ==

== ENCOUNTER 2025-04-19 09:45 | Outpatient (REF) | payer MEDICARE, SELFPAY ==
--- NOTE | ~2025-04-19 | US_ITS ---
EXAMINATION: US RETROPERITONEUM HISTORY: N40.0 - Benign prostatic hyperplasia without lower urinary tract symptoms TECHNIQUE: Real-time grayscale ultrasound imaging of the kidneys was performed and images were reviewed. COMPARISON: Comparison is made with the prior examination dated 03/22/2023. FINDINGS: Right kidney: The right kidney measures 9.6 x 5.2 x 4.7 cm. Renal parenchymal echotexture and thickness are normal. There are no masses. There is no hydronephrosis or renal calculi. Left Kidney: The left kidney measures 10.1 x 4.5 x 5.4 cm. Renal parenchymal echotexture and thickness are normal. There is a 7 x 6 x 7 mm cyst at the lower pole. There is no hydronephrosis or renal calculi. The urinary bladder is unremarkable. Bilateral ureteral jets are identified. Before voiding, the urinary bladder measured 7.4 x 9.7 x 6.0 cm, for an estimated volume of 226 mL. After voiding, the urinary bladder measured 2.7 x 5.0 x 2.6 cm, for an estimated volume of 18 mL. The prostate measures 6.0 x 6.0 x 5.6 cm, for an estimated volume of 106 mL. US/US retroperitoneal comp IMPRESSION: 1. 7 mm left lower pole renal cyst. 2. Post void bladder residual of 18 mL. 3. Enlarged prostate. Electronically signed by: Golden Baires MD 04/19/2025 10:41 AM EDT
--- OUTSIDE RECORDS SUMMARY | 2025-04-19 10:11 | XMS_ITS | Patient Health Record ---
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 Yes How often did you have a dri nk containing alcohol in the past year? Monthly or less (1 point) How many drinks did you have on a typical day when you were drinking in the past year? 1 or 2 drinks (0 point) How often did you have 6 or more drinks on one occasion in the past year? Never (0 point) Points 1 Interpretation Negative Section Notes: Nonsmoker; very occasional glass of wine From [place] in [place] Problems Problem Type SNOMED Code ICD Code Onset Dates Problem Status W/U Status Risk Notes Problem [id number] Encounter for screening for malignant neoplasm of colon (Z12.11) Active confirmed Problem [id number] History of adenomatous polyp of colon (Z86.010) Active confirmed Problem [id number] Abdominal cramps (R10.9) Active confirmed Plan Of Treatment Future Test Test Name Order Date COLONOSCOPY 08/10/2011 COLONOSCOPY 09/06/2017 Insurance Providers Payer Name Payer Address Payer Phone Subscriber Number Group Number Insured Name Patient Relationship to Insured Coverage Start Date Coverage End Date [facility] [employer] [address] [place] [address] [id number] Self - patient is the insured Medical (General) History Medical History History ICD Code Coronary artery disease-he d escribes placement of a coronary artery stent with associated angioplasty in February 2011; he denies any associated heart attack. He also had a coronary artery stent placed 2007 in [place]. He sees Dr. Ortiz at [facility]--he reports a negative ETT and Cardiac ECHO in early 08/2017 Hyperlipidemia Hypertension He denies a history of stroke,lung disea se, diabetes nor kidney disease Colonoscopy 04/2012--1 small tubular lefty vinny removed Surgical History Surgery Date(Month/Year) none
[2025-04-19 10:44] LABS: MANUAL DIFF FLAG NO
[2025-04-19 10:54] LABS: Basophils Percent Auto 0.5 % (0-2); Eosinophils Absolute Auto 0.1 X10*3/uL (0.0-0.4); Eosinophils Percent Auto 3.1 % (0-4); Hemoglobin 13.1 g/dl (14.0-18.0); Imm Gran Abs Auto 0.01 X10*3/uL (0.00-0.03); Imm Gran Pct Auto 0.3 % (0.0-0.4); Lymphocytes Absolute Auto 1.9 X10*3/uL (1.2-4.9); Mean Corpuscular HGB Conc 33.6 g/dl (31.0-36.0); Mean Corpuscular Hemoglobin 31.6 pg (27.0-33.0); Mean Corpuscular Volume 94.2 fL (80.0-98.0); Mean Platelet Volume 11.1 fL (9.4-12.4); Monocytes Absolute Auto 0.3 X10*3/uL (0.1-1.2); Monocytes Percent Auto 7.5 % (2-11); Neutrophils Absolute Auto 1.5 x10*3/uL (2.0-8.3); Neutrophils Percent Auto 38.6 % (45-73); Platelet Count 170 X10*3/uL (160-400); Red Blood Count 4.14 X10*6/uL (4.60-5.80); Red Cell Distribution Width 12.4 % (11.0-16.0); White Blood Count 3.9 X10*3/uL (4.8-10.8)
[2025-04-19 10:58] LABS: Appearance Urine Clear; Color Urine Yellow; Glucose Urine UA Negative (Negative); Leukocyte Esterase Urine Negative (Negative); Nitrite Urine Negative (Negative); Specific Gravity - Urine <= 1.005 (1.005-1.025); UMIC TRIGGER UACC YES; Urine Blood Trace (Negative); Urine Ketones Negative (Negative); Urine Protein Negative (Neg-Trace)
[2025-04-19 11:01] LABS: Bacteria Urine None Seen (None Seen); Hyaline Casts Urine 0-2 /LPF (0-2); RBC Urine 0-2 /HPF (0-2); Squamous Epithelial Cell Urine 0-2 /HPF (0-2); WBC Urine 0-5 /HPF (0-5)
[2025-04-19 11:14] LABS: Estimated Average Glucose 108 mg/dL; Hemoglobin A1C 123.5462 umol/L; Hemoglobin A1c % 5.4 % (<6.0); Total Hemoglobin (HGBA1C) 3452.2777 umol/L
[2025-04-19 11:47] LABS: Alanine Aminotransferase 12 U/L (0-40); Albumin Level 4.6 g/dL (3.5-5.0); Alkaline Phosphatase 46 U/L (39-117); Anion Gap 11 (12-20); Aspartate Amino Transferase 22 U/L (5-37); Bilirubin Total 0.7 mg/dL (0.0-1.0); Blood Urea Nitrogen 15 mg/dL (9-16); Calcium 8.9 mg/dL (8.4-10.2); Carbon Dioxide 30 mmol/L (22-29); Chloride 104 mmol/L (96-108); Cholesterol 150 mg/dL (<200); Estimated Glomerular Filt Rate 51; Glucose Fasting 91 mg/dL (60-99); HDL Cholesterol 64 mg/dL (>40); LDL Cholesterol Calculated 75 mg/dL (<100); Potassium 4.5 mmol/L (3.3-5.1); Sodium 140 mmol/L (135-145); Total Protein 7.4 g/dL (6.5-8.0); Triglycerides 58 mg/dL (<150)
[2025-04-19 11:58] LABS: PSA,Total (Free>4and<10) 4.17 ng/mL (0.00-4.00)
[2025-04-19 12:09] LABS: TSH reflex Free T4 1.93 uIU/mL (0.32-4.0); Vitamin D 25-OH Total 43.1 ng/mL (>30)
[2025-04-20 12:27] LABS: Free Prostate Spec Ag 1.3 ng/mL; Percent Free Prostate Spec Ag 30 % (calc) (>25); Prostate Specific Ag Total 4.3 ng/mL (< OR = 4.0)
== END 2025-04-19 09:46 | disposition home or self-care (01) ==
LOC: HO.US 09:45
PROVIDERS: Absent Provider Internal Medicine; PCP Internal Medicine; Visit Provider Urology
DX: Z12.5 Encounter for screening for malignant neoplasm of prostate (principal); N40.0 Benign prostatic hyperplasia without lower urinary tract symptoms; R31.29 Other microscopic hematuria; M54.16 Radiculopathy, lumbar region; D64.9 Anemia, unspecified; E78.00 Pure hypercholesterolemia, unspecified; E55.9 Vitamin D deficiency, unspecified; R73.01 Impaired fasting glucose; R97.20 Elevated prostate specific antigen [PSA]
CPT/HCPCS: 36415; 76770; 80053; 80061; 81001; 82306; 83036; 84153; 84154; 84443; 85025; 88121

== ENCOUNTER → 2025-04-19 09:47 | Outpatient (BNV) | payer MEDICARE, SELFPAY | PROVIDERS: Absent Provider Internal Medicine; PCP Internal Medicine; Visit Provider Radiology Diagnostic Radiology | DX: N28.1 Cyst of kidney, acquired (principal); N40.1 Benign prostatic hyperplasia with lower urinary tract symptoms | CPT/HCPCS: 76770 ==

== ENCOUNTER 2025-04-22 08:39 | Outpatient (AMB) | payer MEDICARE, SELFPAY ==
--- OUTSIDE RECORDS SUMMARY | 2025-04-22 08:46 | XMS_ITS | Patient Health Record ---
Author Organization [facility] Address [address] [place] [address] Care Team Providers Care Project Assistant Name Role Phone Jian SOTO, [place] Primary Care Provider Unava ilable Golden Ann Unavailable [phone] Reason For Referral No Information Medications Medication [...] Problem Status W/U Status Risk Notes Problem [id number] Encounter for screening for malignant neoplasm of colon (Z12.11) Active confirmed Problem [id number] History of adenomatous polyp of colon (Z86.010) Active confirmed Problem [id number] Abdominal cramps (R10.9) Active confirmed Plan Of Treatment Future Test Test Name Order Date COLONOSCOPY 08/10/2011 COLONOSCOPY 09/06/2017 Insurance Providers Payer Name Payer Address Payer Phone Subscriber Number Group Number Insured Name Patient Relationship to Insured Coverage Start Date Coverage End Date [facility] [employer] [facility] [address] [place] [address] [id number] Self - patient is the insured Medical (General) History Medical History History ICD Code Coronary artery disease-he d escribes placement of a coronary artery stent with associated angioplasty in February 2011; he denies any associated heart attack. He also had a coronary artery stent placed 2007 in [place]. He sees Dr. Ortiz at [facility]--he reports a negative ETT and Cardiac ECHO in early 08/2017 Hyperlipidemia Hypertension He denies a history of stroke,lung disea se, diabetes nor kidney disease Colonoscopy 04/2012--1 small tubular lefty vinny removed Surgical History Surgery Date(Month/Year) none
[2025-04-22 08:49] VITALS: BP 118/62; PULSE 61; TEMP 36.2; O2SAT 97; BMI 24.0
--- NOTE | 2025-04-22 08:49 | MHC.PC.OV ---
Vital Signs 04/22/25 08:49 Height 5 ft 9 in Weight 162 lb 4 oz BMI 24.0 BP 118/62 Blood Pressure Location Lt brachial Position Sitting Pulse 61 Pulse Source Pulse Oximeter Temp 97.1 F Temp Source Temporal Artery Scan Pulse Oximetry (%) 97 Oxygen Delivery Method Room Air Intake Visit Reasons: preop left eye 05/03 and may 17 R Intake Note: Patient is here for a Pre-op for Cataracts surgery scheduled with Dr. Mina on 05/03for left eye and 05/17 for right eye. . Account Administrator Required: No Accompanied by: Self / Same As Patient Allergies dexlansoprazole (From Dexilant) Allergy (Intermediate, Verified 04/22/25 11:36) Stomach Upset Medication List - Last Reconciled 04/22/25 by URIEL Matos acetaminophen 650 mg (2 x 325 mg) PO Q6H PRN 30 days amlodipine 10 mg PO DAILY aspirin 81 mg PO DAILY 90 days baclofen 20 mg PO TID PRN cholecalciferol (vitamin D3) 50 mcg PO DAILY 90 days clotrimazole-betamethasone 1-0.05 % 1 appl topical BID 2 weeks isosorbide mononitrate ER 120 mg PO DAILY 90 days meloxicam 15 mg PO DAILY metoprolol succinate ER 100 mg PO DAILY 90 days nitroglycerin 0.4 mg sublingual DIRECTED pantoprazole 40 mg PO DAILY 90 days rosuvastatin 20 mg PO DAILY 90 days Tobacco use date assessed: 11/04/24 Fall risk assessment: No Falls in past year Last assessed Fall Risk: 04/22/25 Dental Screening Dental Screen Date: 11/04/24 HPI preop left eye 05/03 and may 17 R HPI Details The patient is a 74-year-old male presenting for cataract eye surgery clearance. Patient of Dr. Villar, last seen in office on 11/04/2024 The patient reports a history of cataract in both eyes for a while, approximately 4 to 5 years. Reports that it is gradually getting worse and his vision has been impaired. Surgeon/location: Dr. Wiseman at [facility], at [place], [place] Date: Left eye on May 03 and right eye on May 17, 2025 Anesthesia: MAC. Patient reports has a right hip surgery 4 years ago under general anesthesia without any issues. Also, he had multiple colonoscopy under MAC anesthesia without any issues. The patient denies any post surgery hypothermia or clotting disorder and he is not on any blood thinners or disease modifying antirheumatic drugs (DMARDs). The patient is on aspirin 81 mg daily that should not be stopped. The patient should not take meloxicam 15 mg, starting from the day before surgery Medical history is significant for thrombocytopenia, GERD, benign essential hypertension, coronary artery disease, cardiac murmur, intermittent anginal pain The patient experiences occasional chest pain, for which he uses nitroglycerin. The chest pain occurs without exertion and has been stable over time. He has a history of two stents placed and follows up with a canopy inspector at [facility]. His last cardiology visit was in October, and he is scheduled for a follow-up in eight months. The patient also reports episodes of elevated blood pressure, with readings reaching 190 mmHg systolic. He takes metoprolol and amlodipine for hypertension management Additionally, the patient experiences peripheral edema, particularly in the feet, which he manages by limiting salt intake and using compression stockings. [facility] Medical History Vitamin D deficiency Osteoarthritis of right hip Tick bite of foot COVID-19 vaccine series completed Chronic generalized abdominal pain Tinnitus, bilateral Primary osteoarthritis of knees, bilateral Primary osteoarthritis of both hips Pancytopenia GERD without esophagitis Pure hypercholesterolemia Benign essential hypertension Coronary artery disease Surgical History History of right hip replacement (03/22/21) History of esophagogastroduodenoscopy (EGD) Hx of colonoscopy S/P cardiac catheterization S/P right coronary artery (RCA) stent placement History of cardiac catheterization Family History Father No problems noted. Mother No problems noted. Social History Household Members: Spouse Housing: House Are you a primary resident care supervisor to a significant other at home: No Do you presently have visiting nurse or other home services: No Alcohol intake: current Alcohol intake frequency: holidays/special occasions only Alcohol type: wine Patient Tobacco Use Status: Never used Tobacco e-Cigarette/Vaping Use: Never Used Second Hand Smoke Exposure: No service: No Current occupational status: employed Cognitive needs: No Hearing needs: No Vision needs: Yes (glasses ) Questionnaire Thrive Questionnaire Date Thrive assessed: 11/04/24 TORRES-7 AMB Questionnaire TORRES-7 Date TORRES - 7 assessed: 11/04/24 Source: Developed by Drs. Golden Gaines, Eugenia Diaz, Chacho Montesinos and colleagues, with an educational ghassan from [employer]. Review of Systems Const Denies headache(s) Eyes Reports change in vision (Decreasing) and Denies loss of vision ENT Denies vertigo, Denies dizziness, Denies headache(s) and Denies sore throat Card Reports chest pain (Occasional), Reports pedal edema (Manages with limiting salt, elevation and compression stockings), Denies leg edema and Denies lightheadedness Resp Denies cough, Denies hemoptysis and Denies wheezing GI Denies abdominal pain, Denies melena, Denies constipation, Denies diarrhea and Denies vomiting Denies dysuria, Denies urinary frequency and Denies urinary urgency Musc Denies numbness Neuro Denies Abnormal speech present, Denies vertigo, Denies dizziness, Denies headache(s), Denies loss of vision and Denies numbness Psych Reports panic attacks Blake/Lymph Denies easy bleeding and Denies easy bruising Aller/Immun Denies wheezing Physical exam (Primary Care) Vital Signs: Last Vital Signs Temp 97.1 F 04/22/25 08:49 Pulse 61 04/22/25 08:49 BP 118/62 04/22/25 08:49 Pulse Ox 97 04/22/25 08:49 Oxygen Delivery Method Room Air 04/22/25 08:49 BMI result Body Mass Index 24.0 Tobacco/Smoking Status: Tobacco use Status Tobacco use date assessed 11/04/24 04/22/25 08:57 Patient Tobacco Use Status Never used Tobacco 04/22/25 08:57 e-Cigarette/Vaping Use Never Used 04/22/25 08:57 Thrive Assessment: Date of Thrive Assessment Date Thrive assessed 11/04/24 04/22/25 08:57 Const General: healthy appearing, no acute distress, alert and awake Nutritional Appearance: well nourished Orientation/consciousness: oriented to person, oriented to place and oriented to time HENMT Ears: TM's normal bilaterally General nose exam: Normal nasal mucous membranes and turbinates present Eyes Conjunctivae: conjunctivae normal Sclerae: sclerae normal Pupils: Equal, round and reactive pupils present Neck Neck: Yes no lymphadenopathy and Yes no JVD Thyroid: Thyroid normal Carotids: no bruits Resp Effort & Inspection: normal respiratory effort and not tachypneic Auscultation: no crackles, no rales, no rhonchi and no wheezes Cardio Rate: regular rate Rhythm: regular rhythm Heart sounds: Murmur heart sound present systolic soft, II/ and at the apex GI Palpation (GI): Soft to palpation, nontender, no hepatomegaly and no splenomegaly Auscultation: normal bowel sounds General: Yes no CVA tenderness Back/Spine/Pelvis Back: no CVA tenderness Skin General skin exam: no rashes or lesions noted and dry skin Neuro General: oriented to person, oriented to place and oriented to time Cranial nerves: Yes Equal, round and reactive pupils present Speech: No Abnormal speech present Gait exam (Neuro): Normal gait present Motor exam (neuro): no tremor noted Extrem Right upper extremity: full ROM Left upper extremity: full ROM Right lower extremity: full ROM and foot Details: edema Left lower extremity: full ROM and foot Details: edema Psych Mental Status: mental status grossly normal Speech and movement: Normal speech and movement present Affect: normal affect Attitude: cooperative Thought process: Normal thought process present Results Reviewed Results Reviewed: Laboratory Tests 04/19/25 04/19/25 10:41 10:43 WBC 3.9 L RBC 4.14 L Hgb 13.1 L Hct 39.0 L MCV 94.2 MCH 31.6 MCHC 33.6 RDW 12.4 Plt Count 170 Sodium 140 Potassium 4.5 Chloride 104 Carbon Dioxide 30 H Anion Gap 11 L BUN 15 Creatinine 1.35 Estimated GFR 51 Fasting Glucose 91 Estimat Average Glucose 108 Hemoglobin A1c % 5.4 Calcium 8.9 Total Bilirubin 0.7 AST 22 ALT 12 Alkaline Phosphatase 46 Total Protein 7.4 Albumin 4.6 Triglycerides 58 Cholesterol 150 LDL Cholesterol, Calc 75 HDL Cholesterol 64 25-OH Vitamin D Total 43.1 TSH 1.93 Urine Color Yellow Urine Appearance Clear Urine pH 7.0 Ur Specific [place] <= 1.005 Urine Protein Negative Urine Glucose (UA) Negative Urine Ketones Negative Urine Blood Trace H Urine Nitrite Negative Ur Leukocyte Esterase Negative Urine RBC 0-2 Urine WBC 0-5 Ur Squamous Epith Cells 0-2 Urine Bacteria None Seen Hyaline Casts 0-2 Coding Level of Care Code Est Pt Level 4 (06757) Diagnoses Preoperative clearance Z01.818 Benign essential hypertension I10 Cardiac murmur R01.1 Coronary artery disease of [place] artery of [place] heart with stable angina pectoris I25.118 Coronary Disease-Associated Artery/Lesion type: [place] artery [place] vs. transplanted heart: [place] heart Associated angina: with stable angina Thrombocytopenia D69.6 GERD without esophagitis K21.9 Pure hypercholesterolemia E78.00 Pancytopenia D61.818 Renal insufficiency N28.9 Time Spent (min) 41 Assessment & Plan Assessment & Plan (1) Preoperative clearance: Code(s): Z01.818 - Encounter for other preprocedural examination Category: Medical Plan: Recent labs reviewed. New EKG completed showed a sinus Tamir with ST less elevated in anterior leads compared to previous EKGs Regarding preop clearance, the patient is at acceptable risk for proposed surgery. Reviewed with the patient that no surgery is completely free of risk and that this examination is to assist the surgeon in reviewing informed consent. (2) Benign essential hypertension: Code(s): I10 - Essential (primary) hypertension Category: Medical Plan: Reinforced low sodium diet - goal is systolic BP of at least 140 mm or less Continue Metoprolol ER 100 mg QD and Amlodipine 10 mg QD Patient is reminded to continue monitoring his blood pressure regularly (3) Cardiac murmur: Code(s): R01.1 - Cardiac murmur, unspecified Category: Medical Plan: Patient currently still has a soft, systolic murmur heard best at the cardiac apex - may be possibly a flow murmur due to his thin body habitus and likely close proximity of his heart to his anterior chest wall Echocardiogram done back in August 2022 revealed (+) normal left ventricular systolic function with a calculated ejection fraction of 62%. There is moderate to severe focal septal hypertrophy BUT no obvious valvular pathology seen (4) Coronary artery disease: Code(s): I25.10 - Atherosclerotic heart disease of [place] coronary artery without angina pectoris Category: Medical Qualifiers: Coronary Disease-Associated Artery/Lesion type: [place] artery [place] vs. transplanted heart: [place] heart Associated angina: with stable angina Qualified Code(s): I25.118 - Atherosclerotic heart disease of [place] coronary artery with other forms of angina pectoris Plan: Patient has been asymptomatic so far from a cardiac standpoint Continue Isosorbide Moninitrate ER 120 mg QD, Metoprolol ER 100 mg QD and Aspirin 81 mg QD Patient has Nitroglycerin 0.4 mg SL tablets that he takes as needed for chest pains although he states that he has not had to take these in a while now Follow up with cardiology as scheduled (5) Thrombocytopenia: Code(s): D69.6 - Thrombocytopenia, unspecified Category: Medical Plan: resolved. PLT 170 (6) GERD without esophagitis: Code(s): K21.9 - Gastro-esophageal reflux disease without esophagitis Category: Medical Plan: Dietary restrictions reinforced Continue Pantoprazole 40 mg QD - his previous recurrent sore throat seems to have improved after he was switched from his Omeprazole 20 mg QD over to Pantoprazole last year Follow up with GI as scheduled (7) Pure hypercholesterolemia: Code(s): E78.00 - Pure hypercholesterolemia, unspecified Category: Medical Plan: Results of his labs done a few weeks ago reviewed and discussed with patient Reinforced low cholesterol diet Continue Rosuvastatin 20 mg QD Will recheck his labs and fasting lipids in about 6 months for follow up (8) Pancytopenia: Code(s): D61.818 - Other pancytopenia Category: Medical Plan: His H/H remains stable on his recent labs - will continue to monitor his CBC regularly Hematology evaluations in the past have all been unremarkable and he has been advised that this 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
--- NOTE | 2025-04-22 09:28 | MHC.PC.OV ---
Vital Signs 04/22/25 08:49 Height 5 ft 9 in Weight 162 lb 4 oz BMI 24.0 BP 118/62 Blood Pressure Location Lt brachial Position Sitting Pulse 61 Pulse Source Pulse Oximeter Temp 97.1 F Temp Source Temporal Artery Scan Pulse Oximetry (%) 97 Oxygen Delivery Method Room Air Intake Visit Reasons: preop left eye 05/03 and may 17 R Allergies dexlansoprazole (From Dexilant) Allergy (Intermediate, Verified 04/22/25 11:36) Stomach Upset Medication List - Last Reconciled 04/22/25 by URIEL Matos acetaminophen 650 mg (2 x 325 mg) PO Q6H PRN 30 days amlodipine 10 mg PO DAILY aspirin 81 mg PO DAILY 90 days baclofen 20 mg PO TID PRN cholecalciferol (vitamin D3) 50 mcg PO DAILY 90 days clotrimazole-betamethasone 1-0.05 % 1 appl topical BID 2 weeks isosorbide mononitrate ER 120 mg PO DAILY 90 days meloxicam 15 mg PO DAILY metoprolol succinate ER 100 mg PO DAILY 90 days nitroglycerin 0.4 mg sublingual DIRECTED pantoprazole 40 mg PO DAILY 90 days rosuvastatin 20 mg PO DAILY 90 days Tobacco use date assessed: 11/04/24 Dental Screening Dental Screen Date: 11/04/24 HPI preop left eye 05/03 and may 17 R HPI Details Reports having right hip surgery 4 years and was cleared by his medical writer to the do that surgery [facility] Medical History Vitamin D deficiency Osteoarthritis of right hip Tick bite of foot COVID-19 vaccine series completed Chronic generalized abdominal pain Tinnitus, bilateral Primary osteoarthritis of knees, bilateral Primary osteoarthritis of both hips Pancytopenia GERD without esophagitis Pure hypercholesterolemia Benign essential hypertension Coronary artery disease Surgical History History of right hip replacement (03/22/21) History of esophagogastroduodenoscopy (EGD) Hx of colonoscopy S/P cardiac catheterization S/P right coronary artery (RCA) stent placement History of cardiac catheterization Family History Father No problems noted. Mother No problems noted. Social History Household Members: Spouse Housing: House Are you a primary manager respiratory care to a significant other at home: No Do you presently have visiting nurse or other home services: No Alcohol intake: current Alcohol intake frequency: holidays/special occasions only Alcohol type: wine Patient Tobacco Use Status: Never used Tobacco e-Cigarette/Vaping Use: Never Used Second Hand Smoke Exposure: No service: No Current occupational status: employed Cognitive needs: No Hearing needs: No Vision needs: Yes (glasses ) Questionnaire Thrive Questionnaire Date Thrive assessed: 11/04/24 TORRES-7 AMB Questionnaire TORRES-7 Date TORRES - 7 assessed: 11/04/24 Source: Developed by Drs. Golden Gaines, Eugenia Diaz, Chacho Montesinos and colleagues, with an educational ghassan from [employer]. Physical exam (Primary Care) Vital Signs: Last Vital Signs Temp 97.1 F 04/22/25 08:49 Pulse 61 04/22/25 08:49 BP 118/62 04/22/25 08:49 Pulse Ox 97 04/22/25 08:49 Oxygen Delivery Method Room Air 04/22/25 08:49 BMI result Body Mass Index 24.0 Tobacco/Smoking Status: Tobacco use Status Tobacco use date assessed 11/04/24 04/22/25 09:32 Patient Tobacco Use Status Never used Tobacco 04/22/25 09:32 e-Cigarette/Vaping Use Never Used 04/22/25 09:32 Thrive Assessment: Date of Thrive Assessment Date Thrive assessed 11/04/24 04/22/25 09:32 Coding Assessment & Plan Assessment & Plan Orders: Orders ECG 12 lead EKG 04/22/25 R94.31 - Abnormal electrocardiogram [ECG] [EKG], Z01.810 - Encounter for preprocedural cardiovascular examination
== END 2025-04-22 09:55 | disposition home or self-care (01) ==
LOC: HO.HMCH 08:39
PROVIDERS: PCP Internal Medicine
DX: I10 Essential (primary) hypertension (principal); D61.818 Other pancytopenia; Z01.818 Encounter for other preprocedural examination; R01.1 Cardiac murmur, unspecified; I25.118 Atherosclerotic heart disease of native coronary artery with other forms of angina pectoris; D69.6 Thrombocytopenia, unspecified; K21.9 Gastro-esophageal reflux disease without esophagitis; E78.00 Pure hypercholesterolemia, unspecified; N28.9 Disorder of kidney and ureter, unspecified

== ENCOUNTER → 2025-04-22 08:39 | Outpatient (REF) | payer MEDICARE, SELFPAY ==
--- NOTE | 2025-04-22 10:12 | ECG_ITS ---
Test Reason : Z01.810 - Encounter for preprocedural cardiovascular examination Blood Pressure : */* mmHG Vent. Rate : 57 BPM Atrial Rate : 57 BPM P-R Int : 162 ms QRS Dur : 82 ms QT Int : 392 ms P-R-T Axes : 83 21 43 degrees QTcB Int : 381 ms Sinus bradycardia Otherwise normal ECG When compared with ECG of 23-Feb-2021 08:34, ST less elevated in Anterior leads Referred By: Justin Khanna Electronically Signed By: NAKIA LOVE MD
== END ==
LOC: HO.CARD 08:39
PROVIDERS: PCP Internal Medicine
DX: R31.29 Other microscopic hematuria (principal); N40.0 Benign prostatic hyperplasia without lower urinary tract symptoms; R97.20 Elevated prostate specific antigen [PSA]; Z01.818 Encounter for other preprocedural examination; I10 Essential (primary) hypertension; R01.1 Cardiac murmur, unspecified; I25.118 Atherosclerotic heart disease of native coronary artery with other forms of angina pectoris; D69.6 Thrombocytopenia, unspecified; K21.9 Gastro-esophageal reflux disease without esophagitis; E78.00 Pure hypercholesterolemia, unspecified; D61.818 Other pancytopenia; N28.9 Disorder of kidney and ureter, unspecified; R94.31 Abnormal electrocardiogram [ECG] [EKG]
CPT/HCPCS: 93005; 99212

== ENCOUNTER → 2025-04-22 10:12 | Outpatient (BNV) | payer MEDICARE, SELFPAY | PROVIDERS: PCP Internal Medicine; Visit Provider Internal Medicine Cardiovascular Disease | DX: R00.1 Bradycardia, unspecified (principal) | CPT/HCPCS: 93010 ==

== ENCOUNTER 2025-04-22 11:10 | Outpatient (AMB) | payer BC, SELFPAY ==
--- NOTE | 2025-04-22 11:19 | A.OFFVIS_ITS ---
Intake Visit Reasons: 5m/US/PSA Intake Note: Patient is present for 5m follow up/PSA/US * 04/19 Renal US * 04/19 Total PSA:4.17 * Free PSA: 30 Urology Med: None Antibiotic Allergy:None Blood Thinner: Aspirin PVR:78ml Lead Cook Required: No Accompanied by: Self / Same As Patient Allergies dexlansoprazole (From Dexilant) Allergy (Intermediate, Verified 05/31/25 12:50) Stomach Upset HPI Comments Details: 04/22/25--Yamil is a 74-year-old male who presents to the office for elevated PSA follow-up. I have discussed PSA results. Persistent microscopic hematuria, repeat urine cytology - atypical cytology, Plan outpatient cystoscopy bladder biopsies, elevated PSA, TRUS -prostate biopsies. History of Present Illness - The patient is a 74-year-old male presenting with follow-up for Benign Prostatic Hyperplasia and elevated PSA. - Benign Prostatic Hyperplasia (BPH) has been monitored due to an enlarged prostate with an estimated volume of 106 grams, significantly above the average of 30 grams. - The patient has an elevated PSA level of 4.17, which has been stable - Persistent microscopic hematuria was noted, with urine cytology showing atypical cells, prompting further investigation. - A renal ultrasound revealed kidneys within normal limits, with a small cyst in the left kidney and no stones. - The patient reports good urinary flow without the need to strain, and he drinks approximately two liters of water daily. - Nocturia is limited to once per night, and the patient has not experienced significant urinary symptoms warranting medication intervention. Results - PSA level: 4.17 (measured on 04/19/25) - Urine cytology: Atypical cells present - Renal ultrasound (04/19/25): Kidneys within normal limits, small cyst in left kidney, no stones Plan outpatient cystoscopy bladder biopsies, elevated PSA, TRUS -prostate biopsies. Labs: 04/19/25--PSA--4.17 ng/mL 10/17/24--PSA- 3.63. 11/13/24--Yamil is a 74-year-old male who presents to the office for elevated PSA follow-up. I have discussed PSA results. PSA-10/17/24--3.63. Discussed reevaluate- US retroperitoneal, repeat PSA. UA persistent microscopic hematuria. Plan urine cytology. 1/25/24-The patient was initially evaluated on 03/07/2023--seen as a new patient evaluation for elevated PSA. states voiding well. Denies obstructive or irritative voiding symptoms. Cont PSA screening. Past medical history is significant for hypertension and coronary artery disease. He is status post cardiac catheter stent in 2007 and 2010. Had angioplasty done on 09 February 2023 which was within normal limits. The patient is taking aspirin 81 mg regularly. He has been following with another urology in the past. He had a PSA done on 11/12/22, which was elevated Denies family history of prostate cancer. PSA results ?11/12/22?13.048. Repeat PSA results reviewed--03/22/23-- 1.81. 03/07/23-- Prostate exam-- Prostate is mildly enlarged and irregular AUA symptom score-- 2. Renal US results reviewed-- Kidneys: WNL, estimated prostate volume noted-101 mL. [facility] Medical History (Updated 06/17/25 @ 09:23 by Lorena Tillman RN) Cardiac murmur BPH (benign prostatic hyperplasia) CAD (coronary artery disease) Vitamin D deficiency Osteoarthritis of right hip Tick bite of foot Chronic generalized abdominal pain Tinnitus, bilateral Primary osteoarthritis of knees, bilateral Primary osteoarthritis of both hips Pancytopenia GERD without esophagitis Pure hypercholesterolemia Benign essential hypertension Surgical History (Updated 06/17/25 @ 09:14 by Lorena Tillman RN) Hx of bilateral cataract extraction History of right hip replacement (03/22/21) History of esophagogastroduodenoscopy (EGD) Hx of colonoscopy S/P cardiac catheterization S/P right coronary artery (RCA) stent placement History of cardiac catheterization Family History Father No problems noted. Mother No problems noted. Social History Household Members: Spouse Housing: House Are you a primary manager progressive care to a significant other at home: No Do you presently have visiting nurse or other home services: No Alcohol intake: current Alcohol intake frequency: does not drink Alcohol type: wine Patient Tobacco Use Status: Never used Tobacco e-Cigarette/Vaping Use: Never Used Second Hand Smoke Exposure: No service: No Current occupational status: employed Cognitive needs: No Hearing needs: No Vision needs: Yes (glasses ) Review of Systems Const All systems reviewed & are unremarkable except as noted in HPI and below Reports no additional complaints Eyes Reports no additional complaints ENT Reports no additional complaints Card Reports no additional complaints Resp Reports no additional complaints GI Reports no additional complaints Reports as per HPI Musc Reports no additional complaints Skin/Breast Reports system reviewed and no additional complaints, except as documented Neuro Reports no additional complaints Psych Reports no additional complaints Endo Reports no additional complaints Blake/Lymph Reports no additional complaints Aller/Immun Reports no additional complaints Results Reviewed Results Reviewed: Date of Service: 04/19/25 EXAMINATION: US RETROPERITONEUM HISTORY: N40.0 - Benign prostatic hyperplasia without lower urinary tract symptoms TECHNIQUE: Real-time grayscale ultrasound imaging of the kidneys was performed and images were reviewed. COMPARISON: Comparison is made with the prior examination dated 03/22/2023. FINDINGS: Right kidney: The right kidney measures 9.6 x 5.2 x 4.7 cm. Renal parenchymal echotexture and thickness are normal. There are no masses. There is no hydronephrosis or renal calculi. Left Kidney: The left kidney measures 10.1 x 4.5 x 5.4 cm. Renal parenchymal echotexture and thickness are normal. There is a 7 x 6 x 7 mm cyst at the lower pole. There is no hydronephrosis or renal calculi. The urinary bladder is unremarkable. Bilateral ureteral jets are identified. Before voiding, the urinary bladder measured 7.4 x 9.7 x 6.0 cm, for an estimated volume of 226 mL. After voiding, the urinary bladder measured 2.7 x 5.0 x 2.6 cm, for an estimated volume of 18 mL. The prostate measures 6.0 x 6.0 x 5.6 cm, for an estimated volume of 106 mL. IMPRESSION: 1. 7 mm left lower pole renal cyst. 2. Post void bladder residual of 18 mL. 3. Enlarged prostate. Date of Service: 03/22/23 EXAMINATION: US RETROPERITONEAL COMPLETE (RENAL) CLINICAL INFORMATION: Other microscopic hematuria. COMPARISON: CT abdomen and pelvis 08/07/2021. TECHNIQUE: Real-time imaging of the kidneys and bladder. FINDINGS: RIGHT KIDNEY: 9.0 x 4.0 x 5.1 cm (SAG x AP x TRV). The kidney is normal in size, contour, and echogenicity. Renal cortical thickness is normal. No calculi or focal parenchymal lesions. No hydronephrosis. LEFT KIDNEY: 9.3 x 3.9 x 4.3 cm (SAG x AP x TRV). The kidney is normal in size, contour, and echogenicity. Renal cortical thickness is normal. No calculi or focal parenchymal lesions. No hydronephrosis. BLADDER: Well distended and normal. Bilateral ureteral jets are demonstrated. Prevoid bladder volume is 177 mL. Postvoid bladder volume is 10 mL. There are bladder wall trabeculations. ADDITIONAL FINDINGS: Prostate dimensions are 6.3 x 5.5 x 5.5 cm (volume 101.0 mL). IMPRESSION: ? 1. Unremarkable ultrasound appearance of the bilateral kidneys. ? 2. There is prostatomegaly. ? 3. There is bladder wall hypertrophy. Assessment & Plan Assessment & Plan (1) Microscopic hematuria: Code(s): R31.29 - Other microscopic hematuria Category: Medical (2) BPH (benign prostatic hyperplasia): Code(s): N40.0 - Benign prostatic hyperplasia without lower urinary tract symptoms Category: Medical (3) Elevated PSA: Code(s): R97.20 - Elevated prostate specific antigen [PSA] Category: Medical Plan Plan outpatient cystoscopy bladder biopsies, elevated PSA, TRUS -prostate biopsies. Patient Instructions: The patient had an opportunity to ask questions regarding treatment plan. The patient expressed understanding and agreement with the above treatment plan. The patient is aware they should contact our office by phone for worsening of their current condition or the appearance of new symptoms. Compliance is encouraged with any medications and followup testing that is ordered. It is a privilege to be allowed the opportunity to participate in the urologic care of your patient. If you have any questions or concerns regarding treatment for the above conditions please do not hesitate to contact me. The office telephone contact is [phone]. This note is constructed in part using voice recognition software. While every effort has been made to ensure accuracy auto transport driver errors may have been included. Yours sincerely, Mary Lemons MD Scribe Plan - Not visible on output: Patient was informed and verbally consented to the use of an ambient scribe for clinic note documentation during this visit. Coding Level of Care Code Est Pt Level 4 (53182) Diagnoses Microscopic hematuria R31.29 BPH (benign prostatic hyperplasia) N40.0 Elevated PSA R97.20
== END 2025-04-22 11:50 | disposition home or self-care (01) ==
LOC: HO.HUSH 11:11
PROVIDERS: PCP Internal Medicine; Visit Provider Urology
DX: R31.29 Other microscopic hematuria (principal); N40.0 Benign prostatic hyperplasia without lower urinary tract symptoms; R97.20 Elevated prostate specific antigen [PSA]
CPT/HCPCS: 99214

== ENCOUNTER 2025-05-03 07:51 | Day surgery (SDC) | payer MEDICARE, SELFPAY ==
[2025-04-26 15:50] VITALS: BMI 24.0
--- NOTE | 2025-04-30 12:11 | P.CONAN_ITS ---
Documented by User: Judi Garcia NP 04/30/25 12:13 HPI - Anesthesia Eval Consult details Narrative: 74yo M for Left Cataract Extraction IOL Insertion CAD s/p stent 2010 [facility] Active Problems Active Problems: All Active Problems Preoperative clearance (Acute) Pre-operative cardiovascular exam, new EKG abnormalities c/w ischemia (Acute) Hip abductor tendonitis (Acute) Acute lumbar myofascial strain (Acute) Impacted cerumen of both ears (Acute) Hearing loss (Acute) Renal insufficiency (Acute) Screening PSA (prostate specific antigen) (Acute) BPH (benign prostatic hyperplasia) (Acute) Microscopic hematuria (Acute) Lumbar radiculopathy (Acute) Elevated PSA (Acute) Cardiac murmur (Acute) Right shoulder pain (Acute) Thrombocytopenia (Acute) Status post total hip replacement, right (Acute) Tick bite (Acute) Tinea pedis (Acute) Vitamin D deficiency (Acute) Tinnitus, bilateral (Acute) Primary osteoarthritis of knees, bilateral (Acute) Primary osteoarthritis of both hips (Acute) Pancytopenia (Acute) GERD without esophagitis (Acute) Pure hypercholesterolemia (Acute) Benign essential hypertension (Acute) Coronary artery disease (Acute) Past Medical History Medical History Bilateral cataracts Vitamin D deficiency Osteoarthritis of right hip Tick bite of foot COVID-19 vaccine series completed Chronic generalized abdominal pain Tinnitus, bilateral Primary osteoarthritis of knees, bilateral Primary osteoarthritis of both hips Pancytopenia GERD without esophagitis Pure hypercholesterolemia Benign essential hypertension Coronary artery disease Family History Family History Father No problems noted. Mother No problems noted. Surgical History Surgical History History of right hip replacement (03/22/21) History of esophagogastroduodenoscopy (EGD) Hx of colonoscopy S/P cardiac catheterization S/P right coronary artery (RCA) stent placement History of cardiac catheterization Social History Social History Household Members: Spouse Housing: House Are you a primary care transition coordinator to a significant other at home: No Do you presently have visiting nurse or other home services: No Alcohol intake: current Alcohol intake frequency: does not drink Alcohol type: wine Patient Tobacco Use Status: Never used Tobacco e-Cigarette/Vaping Use: Never Used Second Hand Smoke Exposure: No Have you been hit, kicked, punched, or otherwise hurt by someone within the past year? If so, by whom?: No Are you DNR?: No Advance Directives: No Advance Directives Information Provided: Yes service: No Current occupational status: employed Cognitive needs: No Hearing needs: No Vision needs: Yes (glasses ) Meds Allergies Allergy/AdvReac Type Severity Reaction Status Date / Time dexlansoprazole (From Allergy Intermediate Stomach Verified 04/22/25 11:36 Dexilant) Upset Home Medications ?Medication ?Instructions ?Recorded ?Confirmed ?Last Taken ?Type amlodipine 10 mg tablet 10 mg PO DAILY 06/28/23 0705/14 Unknown History Exam Height,Weight and Vital Signs: Height 5 ft 9 in Weight 73.595 kg Narrative Narrative: EKG 04/2025 Vent. Rate : 57 BPM Atrial Rate : 57 BPM P-R Int : 162 ms QRS Dur : 82 ms QT Int : 392 ms P-R-T Axes : 83 21 43 degrees QTcB Int : 381 ms Sinus bradycardia Otherwise normal ECG When compared with ECG of 23-Feb-2021 08:34, ST less elevated in Anterior leads Assessment and Plan Assessment Anesthesia Assessment: Chart Reviewed Documented by User: Anila Villafuerte MD 05/03/25 11:01 [facility] Past Medical History Medical History Bilateral cataracts Vitamin D deficiency Osteoarthritis of right hip Tick bite of foot COVID-19 vaccine series completed Chronic generalized abdominal pain Tinnitus, bilateral Primary osteoarthritis of knees, bilateral Primary osteoarthritis of both hips Pancytopenia GERD without esophagitis Pure hypercholesterolemia Benign essential hypertension Coronary artery disease Family History Family History Father No problems noted. Mother No problems noted. Family history of problems with anesthesia: No Surgical History Surgical History History of right hip replacement (03/22/21) History of esophagogastroduodenoscopy (EGD) Hx of colonoscopy S/P cardiac catheterization S/P right coronary artery (RCA) stent placement History of cardiac catheterization History of Problems with Anesthesia: No Social History Social History Household Members: Spouse Housing: House Are you a primary care transition coordinator to a significant other at home: No Do you presently have visiting nurse or other home services: No Alcohol intake: current Alcohol intake frequency: does not drink Alcohol type: wine Patient Tobacco Use Status: Never used Tobacco e-Cigarette/Vaping Use: Never Used Second Hand Smoke Exposure: No Have you been hit, kicked, punched, or otherwise hurt by someone within the past year? If so, by whom?: No Are you DNR?: No Advance Directives: No Advance Directives Information Provided: Yes service: No Current occupational status: employed Cognitive needs: No Hearing needs: No Vision needs: Yes (glasses ) Meds Allergies Allergy/AdvReac Type Severity Reaction Status Date / Time dexlansoprazole (From Allergy Intermediate Stomach Verified 04/22/25 11:36 Dexilant) Upset Home Medications ?Medication ?Instructions ?Recorded ?Confirmed ?Last Taken ?Type amlodipine 10 mg tablet 10 mg PO DAILY 06/28/2305/14 Unknown History Exam Airway Mallampati Class: II TM Dist: >3cm Neck ROM: Poor Heart: rrr Lungs: cta Assessment and Plan Assessment Anesthesia Assessment: Anesthesia Plan Discussed Final Anesthetic Review Family History of Problems with Anesthesia: No History of Problems with Anesthesia: No NPO: Yes ASA Class: III Final Preanesthetic Review: No Changes in Pt Med Stat, Meds/Allgs Chart R nehemias, Consent Obtained/Reviewed and Anes Risks/Benef Reviewed Patient Risk: Intermediate Procedure Risk: Low Anesthetic Plan Anesthetic Plan: MAC: Disposition: Standard PACU
[2025-05-03 09:25] VITALS: BP 138/69; PULSE 54; RESP 18; TEMP 36.6; O2SAT 98
[2025-05-03] MEDS: Tetracaine HCl/PF 0.5% Oph Sol 4 ML DROPS 1 DROP EYE-LEFT (09:31)
[2025-05-03] MEDS: Cyclopentolate 1 % Ophth Sol 2 ML DRPBTL 1 DROP EYE-LEFT ×3 (09:31→09:36)
[2025-05-03] MEDS: Tropicamide 1 % Ophth Sol 3 ML BTL 1 DROP EYE-LEFT ×3 (09:32→09:37)
[2025-05-03] MEDS: Ketorolac Tromethamine 0.5% Op 5 ML DROPS 1 DROP EYE-LEFT ×3 (09:33→09:37)
[2025-05-03] MEDS: Phenylephrine HCL 2.5% Oph SoL 2 ML BOTTLE 1 DROP EYE-LEFT ×3 (09:34→09:38)
[2025-05-03] MEDS: Lactated Ringers 500 ML 50 ML IV (09:38)
--- NOTE | 2025-05-03 10:48 | MHC.SHP ---
Pre-Procedural Eval Section A - 24 Hr Update-Section A only Date of Service: 05/03/25 The patient is an INPATIENT: No Changes since office visit: No Cold of Flu in the past 2 weeks, No New Medical Problems, No Changes in Medication and No Patient answered all questions The patient has been examined within 24 hours of the surgical procedure. The History & Physical has been completed within 30 days and I have reviewed it.: Yes Section B - Complete if H&P > 30 days Chief Complaint: Age-related nuclear cataract, left eye Allergies: Allergies Allergy/AdvReac Type Severity Reaction Status Date / Time dexlansoprazole (From Allergy Intermediate Stomach Verified 04/22/25 11:36 Dexilant) Upset Plan Diagnosis/Plan: Unchanged I have reviewed the history and physical and performed a pertinent physical examination on my patient. No changes have occurred unless specified. Time Spent With Patient Time: Total time managing care of this patient today ____ minutes.
--- NOTE | 2025-05-03 10:49 | HO.PNOPHT ---
Ophthalmology Procedure Procedure Date of Service: 05/03/25 Ophthalmology Viscoelastic: Healon Duet Dual Pack Pro Ophthalmology Lenses: IOL Acrysof MP - [id number] (20.5) Procedure Notes: PREOPERATIVE DIAGNOSIS: Decreased visual acuity left eye secondary to cataract POSTOPERATIVE DIAGNOSIS: Same PROCEDURE: Left cataract extraction with intraocular lens insertion SURGEON: Gonzalez Wiseman M.D. ANESTHESIA: Topical/MAC ESTIMATED BLOOD LOSS: None COMPLICATIONS: None After obtaining informed consent, the patient was brought to the operation room suite and placed in the supine position. After adequate sedation per anesthesia, topical drops of Tetracaine were given to the left eye. The eye was then prepped and draped in the usual sterile fashion. The operating room microscope was then positioned over the operative eye and a lid speculum placed. A paracentesis was created. Viscoelastic was then instilled into the anterior chamber. A three plane incision was then created temporally, utilizing a 2.85 mm keratome. Capsulotomy forceps were then utilized to create a circular tear capsulotomy. Hydrodissection and hydrodelineation were carried out until adequate mobilization of the nucleus occurred. Phacoemulsification was then utilized to remove the dense central nucleus followed by removal of the cortical material utilizing the automated aspiration irrigation unit. Viscoat elastic was instilled into the posterior capsular bag followed by placement of a posterior chamber intraocular lens without difficulty. The residual Viscoat elastic was then removed utilizing the automated IA machine. The wound was check and found to be watertight. The patient tolerated the procedure well and the lid speculum was removed. Intracameral injection of Vigamox 0.1 mL followed by a subtenon injection of Kenalog-40 0.2 mL were administered. The patient will be seen in the a.m.
[2025-05-03 11:16] VITALS: BP 139/74; PULSE 55; RESP 16; TEMP 36.3; O2SAT 100
== END 2025-05-03 11:21 | disposition home or self-care (01) ==
PROVIDERS: PCP Internal Medicine; Visit Provider Ophthalmology
PROC: (CPT 66985; principal; 2025-05-03 11:20)
DX: H25.12 Age-related nuclear cataract, left eye (principal); H52.4 Presbyopia; H18.413 Arcus senilis, bilateral; I10 Essential (primary) hypertension; E78.00 Pure hypercholesterolemia, unspecified; I25.118 Atherosclerotic heart disease of native coronary artery with other forms of angina pectoris; Z95.5 Presence of coronary angioplasty implant and graft; D61.818 Other pancytopenia; D69.6 Thrombocytopenia, unspecified; N28.9 Disorder of kidney and ureter, unspecified; E55.9 Vitamin D deficiency, unspecified; Z79.82 Long term (current) use of aspirin; Z79.899 Other long term (current) drug therapy; Z98.890 Other specified postprocedural states
CPT/HCPCS: 66984; J2250; J3301; V2630

== ENCOUNTER 2025-05-17 06:49 | Day surgery (SDC) | payer MEDICARE, SELFPAY ==
[2025-04-26 15:54] VITALS: BMI 24.0
[2025-05-17 07:13] VITALS: BMI 24.1
--- NOTE | 2025-05-17 07:16 | P.CONAN_ITS ---
[facility] Active Problems Active Problems: qAll Active Problems (Updated 04/26/25 @ 15:48 by Bella Rose, RN) Preoperative clearance (Acute) Pre-operative cardiovascular exam, new EKG abnormalities c/w ischemia (Acute) Hip abductor tendonitis (Acute) Acute lumbar myofascial strain (Acute) Impacted cerumen of both ears (Acute) Hearing loss (Acute) Renal insufficiency (Acute) Screening PSA (prostate specific antigen) (Acute) BPH (benign prostatic hyperplasia) (Acute) Microscopic hematuria (Acute) Lumbar radiculopathy (Acute) Elevated PSA (Acute) Cardiac murmur (Acute) Right shoulder pain (Acute) Thrombocytopenia (Acute) Status post total hip replacement, right (Acute) Tick bite (Acute) Tinea pedis (Acute) Vitamin D deficiency (Acute) Tinnitus, bilateral (Acute) Primary osteoarthritis of knees, bilateral (Acute) Primary osteoarthritis of both hips (Acute) Pancytopenia (Acute) GERD without esophagitis (Acute) Pure hypercholesterolemia (Acute) Benign essential hypertension (Acute) Coronary artery disease (Acute) Past Medical History Medical History Bilateral cataracts Vitamin D deficiency Osteoarthritis of right hip Tick bite of foot COVID-19 vaccine series completed Chronic generalized abdominal pain Tinnitus, bilateral Primary osteoarthritis of knees, bilateral Primary osteoarthritis of both hips Pancytopenia GERD without esophagitis Pure hypercholesterolemia Benign essential hypertension Coronary artery disease Family History Family History Father No problems noted. Mother No problems noted. Family history of problems with anesthesia: No Surgical History Surgical History Hx of left cataract extraction (05/03/25) History of right hip replacement (03/22/21) History of esophagogastroduodenoscopy (EGD) Hx of colonoscopy S/P cardiac catheterization S/P right coronary artery (RCA) stent placement History of cardiac catheterization History of Problems with Anesthesia: No Social History Social History Household Members: Spouse Housing: House Are you a primary career orientation teacher to a significant other at home: No Do you presently have visiting nurse or other home services: No Alcohol intake: current Alcohol intake frequency: does not drink Alcohol type: wine Patient Tobacco Use Status: Never used Tobacco e-Cigarette/Vaping Use: Never Used Second Hand Smoke Exposure: No Use of substances other than those prescribed or required for medical reasons: No Advance Directives: No Advance Directives Information Provided: Yes Poor oral hygiene: No service: No Current occupational status: employed Cognitive needs: No Hearing needs: No Vision needs: Yes (glasses ) Meds Allergies Allergy/AdvReac Type Severity Reaction Status Date / Time dexlansoprazole (From Allergy Intermediate Stomach Verified 04/22/25 11:36 Dexilant) Upset Active Medications: Current Medications Cyclopentolate HCl (Cyclopentolate 1 % Ophth Allyssa 2 Ml Drpbtl) 1 drop EYE-RIGHT Q5M ERIC Stop: 05/17/25 07:26 Lactated Ringer's (Lr) 500 mls @ 50 mls/hr IV .Q10H ERIC Stop: 05/17/25 17:14 Ketorolac Tromethamine (Ketorolac Tromethamine 0.5% Op 5 Ml Drops) 1 drop EYE- RIGHT Q5M ERIC Stop: 05/17/25 07:26 Phenylephrine HCl (Phenylephrine Hcl 2.5% Oph Allyssa 2 Ml Bottle) 1 drop EYE-RIGHT Q5M ERIC Stop: 05/17/25 07:26 Povidone Iodine (Povidone Iodine 5 % Ophth Soln 30 Ml Bottle) 1 appl EYE-RIGHT PREOP PRN PRN Reason: Pre-Op Surgical Implant Prophy Tropicamide (Tropicamide 1 % Ophth Allyssa 3 Ml Btl) 1 drop EYE-RIGHT Q5M ERIC Stop: 05/17/25 07:26 Home Medications ?Medication ?Instructions ?Recorded ?Confirmed ?Last Taken ?Type amlodipine 10 mg tablet 10 mg PO DAILY 06/28/2304/21 Unknown History Exam Height,Weight and Vital Signs: Height 5 ft 9 in Weight 73.9 kg Airway Mallampati Class: II TM Dist: >3cm Neck ROM: Full Loose/Missing/Broken Teeth: No Heart: RRR Lungs: CTA Assessment and Plan Assessment Anesthesia Assessment: Anesthesia Plan Discussed and Chart Reviewed Final Anesthetic Review Family History of Problems with Anesthesia: No History of Problems with Anesthesia: No NPO: Yes ASA Class: III Final Preanesthetic Review: Meds/Allgs Chart Reviewed, Consent Obtained/Reviewed and Anes Risks/Benef Reviewed Patient Risk: Intermediate Procedure Risk: Low Anesthetic Plan Anesthetic Plan: MAC: Disposition: Standard PACU
[2025-05-17] MEDS: Tetracaine HCl/PF 0.5% Oph Sol 4 ML DROPS 1 DROP EYE-RIGHT (07:21)
--- NOTE | 2025-05-17 07:21 | MHC.SHP ---
Pre-Procedural Eval Section A - 24 Hr Update-Section A only Date of Service: 05/17/25 The patient is an INPATIENT: No Changes since office visit: No Cold of Flu in the past 2 weeks, No New Medical Problems, No Changes in Medication and No Patient answered all questions The patient has been examined within 24 hours of the surgical procedure. The History & Physical has been completed within 30 days and I have reviewed it.: Yes Section B - Complete if H&P > 30 days Chief Complaint: Age-related nuclear cataract, right eye Allergies: Allergies Allergy/AdvReac Type Severity Reaction Status Date / Time dexlansoprazole (From Allergy Intermediate Stomach Verified 04/22/25 11:36 Dexilant) Upset Plan Diagnosis/Plan: Unchanged I have reviewed the history and physical and performed a pertinent physical examination on my patient. No changes have occurred unless specified. Time Spent With Patient Time: Total time managing care of this patient today ____ minutes.
[2025-05-17] MEDS: Cyclopentolate 1 % Ophth Sol 2 ML DRPBTL 1 DROP EYE-RIGHT ×3 (07:24→07:38)
[2025-05-17] MEDS: Tropicamide 1 % Ophth Sol 3 ML BTL 1 DROP EYE-RIGHT ×3 (07:25→07:40)
[2025-05-17] MEDS: Ketorolac Tromethamine 0.5% Op 5 ML DROPS 1 DROP EYE-RIGHT ×3 (07:27→07:42)
[2025-05-17] MEDS: Phenylephrine HCL 2.5% Oph SoL 2 ML BOTTLE 1 DROP EYE-RIGHT ×3 (07:29→07:44)
[2025-05-17] MEDS: Lactated Ringers 500 ML 50 ML IV (07:36)
--- NOTE | 2025-05-17 08:25 | HO.PNOPHT ---
Ophthalmology Procedure Procedure Date of Service: 05/17/25 Ophthalmology Viscoelastic: Healon Duet Dual Pack Pro Ophthalmology Lenses: IOL Acrysof MP - [id number] (18) Procedure Notes: PREOPERATIVE DIAGNOSIS: Decreased visual acuity right eye secondary to cataract POSTOPERATIVE DIAGNOSIS: Same PROCEDURE: Right cataract extraction with intraocular lens insertion SURGEON: Gonzalez Wiseman M.D. ANESTHESIA: Topical/MAC ESTIMATED BLOOD LOSS: None COMPLICATIONS: Optic Fracture After obtaining informed consent, the patient was brought to the operating room suite and placed in the supine position. After adequate sedation per anesthesia, topical drops of Tetracaine were given to the right eye. The eye was then prepped and draped in the usual sterile fashion. The operating room microscope was then positioned over the operative eye and a lid speculum placed. A paracentesis was created. Viscoelastic was then instilled into the anterior chamber. A three plane incision was then created temporally, utilizing a 2.85 mm keratome. Capsulotomy forceps were then utilized to create a circular tear capsulotomy. Hydrodissection and hydrodelineation were carried out until adequate mobilization of the nucleus occurred. Phacoemulsification was then utilized to remove the dense central nucleus followed by removal of the cortical material utilizing the automated aspiration irrigation unit. Viscoelastic was instilled into the posterior capsular bag followed by placement of a posterior chamber intraocular lens without difficulty. A fracture in the Optic was noted after placement. It was off axis and the patient was showing signs of discomfort. I elected to forego a lens exchange The residual Viscoelastic was then removed utilizing the automated IA machine. The wound was checked and found to be watertight. The patient tolerated the procedure well and the lid speculum was removed. Intracameral injection of Vigamox 0.1 mL followed by a subtenon injection of Kenalog-40 0.2 mL were administered. The patient will be seen in the a.m.
[2025-05-17 08:55] VITALS: BP 117/66; PULSE 54; RESP 18; TEMP 36.3; O2SAT 100
== END 2025-05-17 09:01 | disposition home or self-care (01) ==
PROVIDERS: PCP Internal Medicine; Visit Provider Ophthalmology
PROC: (CPT 66985; principal; 2025-05-17 09:00)
DX: T85.21XA Breakdown (mechanical) of intraocular lens, initial encounter (principal); H57.11 Ocular pain, right eye; Y77.8 Miscellaneous ophthalmic devices associated with adverse incidents, not elsewhere classified; H25.11 Age-related nuclear cataract, right eye; E78.00 Pure hypercholesterolemia, unspecified; E55.9 Vitamin D deficiency, unspecified
CPT/HCPCS: 67121; J2250; J3010; J3301; V2630

== ENCOUNTER 2025-05-31 12:19 | Outpatient (AMB) | payer MEDICARE, SELFPAY ==
[2025-05-31 12:34] VITALS: BP 100/72; PULSE 54; O2SAT 97; BMI 23.4
--- NOTE | 2025-05-31 12:34 | A.OFFPC_ITS ---
Vital Signs 05/31/25 12:34 Height 5 ft 9 in Weight 158 lb 6 oz BMI 23.4 BP 100/72 Blood Pressure Location Lt brachial Position Sitting Pulse 54 Pulse Source Pulse Oximeter Pulse Oximetry (%) 97 Oxygen Delivery Method Room Air Intake Visit Reasons: CAD, HTN, hyperlipidemia, GERD Hemmer Automatic Required: No Accompanied by: Self / Same As Patient Allergies dexlansoprazole (From Dexilant) Allergy (Intermediate, Verified 05/31/25 12:50) Stomach Upset Medication List - Last Reconciled 05/31/25 by Kingsley Villar MD acetaminophen 650 mg (2 x 325 mg) PO Q6H PRN 30 days amlodipine 10 mg PO DAILY aspirin 81 mg PO DAILY 90 days cholecalciferol (vitamin D3) 50 mcg PO DAILY 90 days ciprofloxacin HCl (Cipro) 500 mg PO BID 4 days clotrimazole-betamethasone 1-0.05 % 1 appl topical BID 2 weeks isosorbide mononitrate ER 120 mg PO DAILY 90 days metoprolol succinate ER 100 mg PO DAILY 90 days nitroglycerin 0.4 mg sublingual DIRECTED pantoprazole 40 mg PO DAILY 90 days rosuvastatin 20 mg PO DAILY 90 days Tobacco use date assessed: 05/31/25 Fall risk assessment: No Falls in past year Last assessed Fall Risk: 05/31/25 Dental Screening Dental Screen Date: 05/31/25 Did you have a dental visit in the last 12 months?: Yes Did you have a dental problem in the last 6 months where you did not have access to dental care?: No Was dental information given to patient?: Patient has dentist HPI CAD, HTN, hyperlipidemia, GERD HPI Details Patient comes in today for his follow up visit States that he feels okay He denies any headaches or dizziness He denies any chest pains, no SOB No nausea/vomiting, no abdominal pain No change in bowel habits noted He had his follow up labs done a few weeks ago - to discuss his results [facility] Medical History Bilateral cataracts Vitamin D deficiency Osteoarthritis of right hip Tick bite of foot COVID-19 vaccine series completed Chronic generalized abdominal pain Tinnitus, bilateral Primary osteoarthritis of knees, bilateral Primary osteoarthritis of both hips Pancytopenia GERD without esophagitis Pure hypercholesterolemia Benign essential hypertension Coronary artery disease Surgical History Hx of left cataract extraction (05/03/25) History of right hip replacement (03/22/21) History of esophagogastroduodenoscopy (EGD) Hx of colonoscopy S/P cardiac catheterization S/P right coronary artery (RCA) stent placement History of cardiac catheterization Family History Father No problems noted. Mother No problems noted. Social History Household Members: Spouse Housing: House Are you a primary career services director to a significant other at home: No Do you presently have visiting nurse or other home services: No Alcohol intake: current Alcohol intake frequency: does not drink Alcohol type: wine Patient Tobacco Use Status: Never used Tobacco e-Cigarette/Vaping Use: Never Used Second Hand Smoke Exposure: No service: No Current occupational status: employed Cognitive needs: No Hearing needs: No Vision needs: Yes (glasses ) Questionnaire PHQ-9 Over the last 2 weeks, how often have you been bothered by any of the following problems? 1. Little interest or pleasure in doing things: not at all 2. Feeling down, depressed, or hopeless: not at all 3. Trouble falling or staying asleep, or sleeping too much: not at all 4. Feeling tired or having little energy: not at all 5. Poor appetite or overeating: not at all 6. Feeling bad about yourself - or that you are a failure or have let yourself or your family down: not at all 7. Trouble concentrating on things, such as reading the newspaper or watching television: not at all 8. Moving or speaking so slowly that other people could have noticed. Or the opposite - being so fidgety or restless that you have been moving around a lot more than usual: not at all 9. Thoughts that you would be better off or of hurting yourself in some way: not at all Total score: 0 Depression Screening Interpretation: Negative Depression Screening Done: Yes 37558 - PHQ-9 Billing: Yes Source: Developed by Drs. Golden Gaines, Eugenia Diaz, Chacho Montesinos and colleagues, with an educational ghassan from [employer]. Thrive Questionnaire Date Thrive assessed: 05/31/25 I am a: Patient What is your living situation today?: I have a steady place to live Within the past 12 months, did the food you bought not last and you didn't have the money to get more?: Never true Within the past 12 months, did you worry whether your food would run out before you got money to buy more?: Never true Do you have trouble paying for medicines?: No Do you have trouble getting transportation to medical appointments?: No Do you have trouble paying your heating and electricity bill?: No Do you have trouble taking care of your child, family member or friend?: No Do you have trouble with day-to-day activities such as bathing, preparing meals, shopping, managing finances, etc.?: No Are you currently unemployed and looking for a job?: No Are you interested in more education?: No Please select the resources that you would like help with: None Currently or been in a relationship where the following occur: No concerns reported THRIVE Score: 0 AUDIT C Alcohol Use Questionnaire (AUDIT-C) 1. How often do you have a drink containing alcohol?: Never 3. How often do you have six or more drinks on one occasion?: Never Total Score: 0 Score Reviewed/Action Taken: Yes TORRES-7 AMB Questionnaire TORRES-7 Date TORRES - 7 assessed: 05/31/25 Feeling nervous, anxious, or on edge: 0 = Not at all Not being able to stop or control worryin = Not at all Worrying too much about different things: 0 = Not at all Trouble relaxin = Not at all Being so restless that it is hard to sit still: 0 = Not at all Becoming easily annoyed or irritable: 0 = Not at all Feeling afraid as if something awful might happen: 0 = Not at all Total TORRES-7 score (0-4 normal; 5-9 mild; 10-14 moderate; 15-21 severe): 0 Source: Developed by Drs. Golden Gaines, Eugenia Diaz, Chacho Montesinos and colleagues, with an educational ghassan from [employer]. Review of Systems Const Reports difficulty sleeping (at times), Denies fatigue, Denies fever(s) and Denies headache(s) ENT Denies dysphagia, Denies dizziness, Denies otalgia, Denies headache(s), Reports hearing loss, Denies neck pain, Denies odynophagia, Reports tinnitus (on and off) and Denies sore throat Card Denies chest pain, Denies palpitations and Denies dyspnea Resp Denies chest congestion, Denies cough and Denies dyspnea GI Denies abdominal pain, Denies constipation, Denies dysphagia, Denies heartburn, Denies diarrhea, Denies nausea, Denies odynophagia and Denies vomiting Denies difficulty urinating, Denies dysuria, Denies nocturia and Denies urinary frequency Musc Denies back pain and Denies neck pain Skin/Breast Denies rash Neuro Denies dizziness and Denies headache(s) Psych Denies anxiety Endo Denies fatigue and Denies palpitations Physical exam (Primary Care) Vital Signs: Last Vital Signs Pulse 54 05/31/25 12:34 BP 100/72 05/31/25 12:34 Pulse Ox 97 05/31/25 12:34 Oxygen Delivery Method Room Air 05/31/25 12:34 BMI result Body Mass Index 23.4 Tobacco/Smoking Status: Tobacco use Status Tobacco use date assessed 05/31/25 05/31/25 12:39 Patient Tobacco Use Status Never used Tobacco 05/31/25 12:39 e-Cigarette/Vaping Use Never Used 05/31/25 12:39 PHQ-9: PHQ-9 Score PHQ-9: Total score 0 05/31/25 12:39 Depression Screening Interpretation: Negative Thrive Assessment: Date of Thrive Assessment Date Thrive assessed 05/31/25 05/31/25 12:39 Currently or been in a relationship where the following occur: No concerns reported Const General: no acute distress and alert HENMT Ears: TM's normal bilaterally and EAC's normal Throat: Yes posterior oropharynx normal and Yes tonsils normal Neck Neck: Yes supple and No lymphadenopathy Thyroid: Thyroid normal Resp Auscultation: clear to auscultation bilaterally, no rales and no wheezes Cardio Rate: regular rate Rhythm: regular rhythm Heart sounds: Murmur heart sound present systolic soft, II/ and at the apex GI Palpation (GI): Soft to palpation and nontender Auscultation: normal bowel sounds General: Yes no CVA tenderness Back/Spine/Pelvis Back: no CVA tenderness Thoracic/Lumbar Spine: No lumbar spinal tenderness Skin Rashes: no rashes Extrem General: Yes no clubbing, cyanosis or edema Results Reviewed Results Reviewed: Laboratory Tests 04/19/25 04/19/25 04/19/25 10:41 10:43 11:58 WBC 3.9 L Hgb 13.1 L Hct 39.0 L Plt Count 170 Sodium 140 Potassium 4.5 Creatinine 1.35 Estimated GFR 51 Fasting Glucose 91 Hemoglobin A1c % 5.4 Calcium 8.9 AST 22 ALT 12 Triglycerides 58 Cholesterol 150 LDL Cholesterol, Calc 75 HDL Cholesterol 64 Free PSA 1.3 % Free PSA 30 Total PSA 4.17 H Total PSA (off-site) 4.3 H 25-OH Vitamin D Total 43.1 TSH 1.93 Ur Specific [place] <= 1.005 Urine Protein Negative Urine Glucose (UA) Negative Urine Blood Trace H Urine Nitrite Negative Ur Leukocyte Esterase Negative Coding Level of Care Code Est Pt Level 4 (88101) Diagnoses Coronary artery disease of mak[place] artery of makah heart with stable angina pectoris I25.118 Coronary Disease-Associated Artery/Lesion type: [place] artery [place] vs. transplanted heart: makah heart Associated angina: with stable angina Cardiac murmur R01.1 Benign essential hypertension I10 Pure hypercholesterolemia E78.00 Pancytopenia D61.818 Renal insufficiency N28.9 GERD without esophagitis K21.9 Vitamin D deficiency E55.9 Primary osteoarthritis of both hips M16.0 Primary osteoarthritis of knees, bilateral M17.0 Elevated PSA R97.20 Additional Codes PHQ-9 - 40635 - PHQ-9 Billing: Yes ([id number]) Assessment & Plan Assessment & Plan (1) Coronary artery disease: Code(s): I25.10 - Atherosclerotic heart disease of mak[place] coronary artery without angina pectoris Category: Medical Qualifiers: Coronary Disease-Associated Artery/Lesion type: [place] artery [place] vs. transplanted heart: makah heart Associated angina: with stable angina Qualified Code(s): I25.118 - Atherosclerotic heart disease of mak[place] coronary artery with other forms of angina pectoris Plan: Patient has been asymptomatic so far from a cardiac standpoint Continue Isosorbide Mononitrate ER 120 mg QD, Metoprolol ER 100 mg QD and Aspirin 81 mg QD Patient has Nitroglycerin 0.4 mg SL tablets that he takes as needed for chest pains - states that he has not had to take these in a while now Follow up with cardiology as scheduled (2) Cardiac murmur: Code(s): R01.1 - Cardiac murmur, unspecified Category: Medical Plan: Patient currently still has a soft, systolic murmur heard best at the cardiac apex - may be possibly a flow murmur due to his thin body habitus and likely close proximity of his heart to his anterior chest wall Echocardiogram done back in August 2022 revealed (+) normal left ventricular systolic function with a calculated ejection fraction of 62%. There is moderate to severe focal septal hypertrophy BUT no obvious valvular pathology seen (3) Benign essential hypertension: Code(s): I10 - Essential (primary) hypertension Category: Medical Plan: Reinforced low sodium diet - goal is systolic BP of at least 140 mm or less Continue Metoprolol ER 100 mg QD and Amlodipine 10 mg QD Patient is reminded to continue monitoring his blood pressure regularly (4) Pure hypercholesterolemia: Code(s): E78.00 - Pure hypercholesterolemia, unspecified Category: Medical Plan: Results of his labs done a few weeks ago reviewed and discussed with patient Reinforced low cholesterol diet Continue Rosuvastatin 20 mg QD Will recheck his labs and fasting lipids in about 6 months for follow up (5) Pancytopenia: Code(s): D61.818 - Other pancytopenia Category: Medical Plan: His H/H remains stable on his recent labs - will continue to monitor his CBC regularly Hematology evaluations in the past have all been unremarkable and he has been advised that this 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 (6) Renal insufficiency: Code(s): N28.9 - Disorder of kidney and ureter, unspecified Category: Medical Plan: Patient's renal function appears stable on his recent labs although his numbers still place him now in early stage 3 CKD Have reminded him to make sure he keeps up with his oral fluid intake and to maintain adequate hydration, especially when he is in [place] / [place] Will continue to monitor his renal function closely/regularly (7) GERD without esophagitis: Code(s): K21.9 - Gastro-esophageal reflux disease without esophagitis Category: Medical Plan: Dietary restrictions reinforced Continue Pantoprazole 40 mg QD - his previous recurrent sore throat seems to have improved after he was switched from his Omeprazole 20 mg QD over to Pantoprazole a couple of years ago Follow up with GI as scheduled (8) Vitamin D deficiency: Code(s): E55.9 - Vitamin D deficiency, unspecified Category: Medical Plan: Continue Vitamin D3 2000 units QD (9) Primary osteoarthritis of both hips: Comment: X-rays of both hips done last year showed (+) moderate OA in the right hip and mild OA changes in the left Code(s): M16.0 - Bilateral primary osteoarthritis of hip Category: Medical Plan: S/P total right hip arthroplasty by Dr. Stevens in March 2021 with significant improvement of his hip pain His left hip pain has been mostly well-controlled/managed Follow-up with orthopedics as scheduled (10) Primary osteoarthritis of knees, bilateral: Code(s): M17.0 - Bilateral primary osteoarthritis of knee Category: Medical Plan: Continue Acetaminophen 650 mg Q 6 to 8 hours as needed for pain Follow-up with orthopedics as scheduled (11) Elevated PSA: Code(s): R97.20 - Elevated prostate specific antigen [PSA] Category: Medical Plan: His PSA was again elevated on his recent labs Follow up with urology as scheduled - he is now scheduled for cystoscopy and prostate biopsy with urology on 06/22/2025 Plan Follow up in 6 months Orders: Orders Complete Blood Count Auto Diff 10/30/25 D64.9 - Anemia, unspecified TSH reflex Free T4 10/30/25 E78.00 - Pure hypercholesterolemia, unspecified Vitamin D 25-OH Total 10/30/25 E55.9 - Vitamin D deficiency, unspecified Comprehensive Summers. Panel Fast 10/30/25 E78.00 - Pure hypercholesterolemia, unspecified Lipid Panel 10/30/25 E78.00 - Pure hypercholesterolemia, unspecified UA CC w/rflx Micro + Cult 10/30/25 R30.0 - Dysuria Medications: Refilled ciprofloxacin HCl (Cipro) Begin taking twice daily 2 days before biopsy 500 mg PO BID 8 tabs 0RF 4 days
--- OUTSIDE RECORDS SUMMARY | 2025-05-31 12:34 | XMS_ITS | Patient Health Record ---
Author Organization [facility] Address [address] [place] [address] Care Team Providers Care Employment Clerk Name Role Phone Jian SOTO, [employer] Primary Care Provider Unava ilable Golden Ann Unavailable [phone] Reason For Referral No Information Medications Medication [...] Problem Status W/U Status Risk Notes Problem [id number] Encounter for screening for malignant neoplasm of colon (Z12.11) Active confirmed Problem [id number] History of adenomatous polyp of colon (Z86.010) Active confirmed Problem [id number] Abdominal cramps (R10.9) Active confirmed Plan Of Treatment Future Test Test Name Order Date COLONOSCOPY 08/10/2011 COLONOSCOPY 09/06/2017 Insurance Providers Payer Name Payer Address Payer Phone Subscriber Number Group Number Insured Name Patient Relationship to Insured Coverage Start Date Coverage End Date [facility] [employer] [facility] [address] [place] [address] [id number] Self - patient is the insured Medical (General) History Medical History History ICD Code Coronary artery disease-he d escribes placement of a coronary artery stent with associated angioplasty in February 2011; he denies any associated heart attack. He also had a coronary artery stent placed 2007 in [place]. He sees Dr. Ortiz at [facility]--he reports a negative ETT and Cardiac ECHO in early 08/2017 Hyperlipidemia Hypertension He denies a history of stroke,lung disea se, diabetes nor kidney disease Colonoscopy 04/2012--1 small tubular lefty vinny removed Surgical History Surgery Date(Month/Year) none
== END 2025-05-31 13:02 | disposition home or self-care (01) ==
LOC: HO.HMCH 12:20
PROVIDERS: PCP Internal Medicine; Visit Provider Internal Medicine
DX: I25.118 Atherosclerotic heart disease of native coronary artery with other forms of angina pectoris (principal); R01.1 Cardiac murmur, unspecified; I10 Essential (primary) hypertension; E78.00 Pure hypercholesterolemia, unspecified; D61.818 Other pancytopenia; N28.9 Disorder of kidney and ureter, unspecified; K21.9 Gastro-esophageal reflux disease without esophagitis; E55.9 Vitamin D deficiency, unspecified; M16.0 Bilateral primary osteoarthritis of hip; M17.0 Bilateral primary osteoarthritis of knee; R97.20 Elevated prostate specific antigen [PSA]

== ENCOUNTER → 2025-05-31 12:19 | Outpatient (BNVA) | payer MEDICARE, SELFPAY | PROVIDERS: PCP Internal Medicine; Visit Provider Internal Medicine | DX: I10 Essential (primary) hypertension (principal); E78.5 Hyperlipidemia, unspecified; K21.9 Gastro-esophageal reflux disease without esophagitis; I25.118 Atherosclerotic heart disease of native coronary artery with other forms of angina pectoris; R01.1 Cardiac murmur, unspecified; E78.00 Pure hypercholesterolemia, unspecified; D61.818 Other pancytopenia; N28.9 Disorder of kidney and ureter, unspecified; E55.9 Vitamin D deficiency, unspecified; M16.0 Bilateral primary osteoarthritis of hip; M17.0 Bilateral primary osteoarthritis of knee; R97.20 Elevated prostate specific antigen [PSA]; R30.0 Dysuria; D64.9 Anemia, unspecified | CPT/HCPCS: 96127; 99212 ==

== ENCOUNTER → 2025-06-22 07:16 | Day surgery (SDC) | payer MEDICARE, SELFPAY ==
--- OUTSIDE RECORDS SUMMARY | 2025-05-14 08:16 | XMS_ITS | Patient Health Record ---
Author Organization [facility] Address [address] [place] [address] Care Team Providers [facility] [employer] Professor Name Role Phone Jian SOTO, [place] Primary Care Provider Unava ilable Golden Ann Unavailable [phone] Reason For Referral No Information Medications Medication [...] Problem Status W/U Status Risk Notes Problem [id number] Encounter for screening for malignant neoplasm of colon (Z12.11) Active confirmed Problem [id number] History of adenomatous polyp of colon (Z86.010) Active confirmed Problem [id number] Abdominal cramps (R10.9) Active confirmed Plan Of Treatment Future Test Test Name Order Date COLONOSCOPY 08/10/2011 COLONOSCOPY 09/06/2017 Insurance Providers Payer Name Payer Address Payer Phone Subscriber Number Group Number Insured Name Patient Relationship to Insured Coverage Start Date Coverage End Date [facility] [employer] [address] [place] [address] [phone] [id number] Self - patient is the insured Medical (General) History Medical History History ICD Code Coronary artery disease-he d escribes placement of a coronary artery stent with associated angioplasty in February 2011; he denies any associated heart attack. He also had a coronary artery stent placed 2007 in [place]. He sees Dr. Ortiz at [facility]--he reports a negative ETT and Cardiac ECHO in early 08/2017 Hyperlipidemia Hypertension He denies a history of stroke,lung disea se, diabetes nor kidney disease Colonoscopy 04/2012--1 small tubular lefty vinny removed Surgical History Surgery Date(Month/Year) none
--- NOTE | 2025-05-14 11:15 | P.CONAN_ITS ---
HPI - Anesthesia Eval Consult details Narrative: 74 yr old male for right cataract extraction, insertion IOL s/p left cataract 05/03/25 PCP clearance 04/22/25 [facility] Active Problems Active Problems: All Active Problems (Updated 04/26/25 @ 15:48 by Bella Rose, RN) Preoperative clearance (Acute) Pre-operative cardiovascular exam, new EKG abnormalities c/w ischemia (Acute) Hip abductor tendonitis (Acute) Acute lumbar myofascial strain (Acute) Impacted cerumen of both ears (Acute) Hearing loss (Acute) Renal insufficiency (Acute) Screening PSA (prostate specific antigen) (Acute) BPH (benign prostatic hyperplasia) (Acute) Microscopic hematuria (Acute) Lumbar radiculopathy (Acute) Elevated PSA (Acute) Cardiac murmur (Acute) Right shoulder pain (Acute) Thrombocytopenia (Acute) Status post total hip replacement, right (Acute) Tick bite (Acute) Tinea pedis (Acute) Vitamin D deficiency (Acute) Tinnitus, bilateral (Acute) Primary osteoarthritis of knees, bilateral (Acute) Primary osteoarthritis of both hips (Acute) Pancytopenia (Acute) GERD without esophagitis (Acute) Pure hypercholesterolemia (Acute) Benign essential hypertension (Acute) Coronary artery disease (Acute) Past Medical History Medical History Bilateral cataracts Vitamin D deficiency Osteoarthritis of right hip Tick bite of foot COVID-19 vaccine series completed Chronic generalized abdominal pain Tinnitus, bilateral Primary osteoarthritis of knees, bilateral Primary osteoarthritis of both hips Pancytopenia GERD without esophagitis Pure hypercholesterolemia Benign essential hypertension Coronary artery disease Family History Family History Father No problems noted. Mother No problems noted. Family history of problems with anesthesia: No Surgical History Surgical History Hx of left cataract extraction (05/03/25) History of right hip replacement (03/22/21) History of esophagogastroduodenoscopy (EGD) Hx of colonoscopy S/P cardiac catheterization S/P right coronary artery (RCA) stent placement History of cardiac catheterization History of Problems with Anesthesia: No Social History Social History (Reviewed 05/31/25 @ 12:35 by EAN Monk Household Members: Spouse Housing: House Are you a primary insurance healthcare consultant to a significant other at home: No Do you presently have visiting nurse or other home services: No Alcohol intake: current Alcohol intake frequency: does not drink Alcohol type: wine Patient Tobacco Use Status: Never used Tobacco e-Cigarette/Vaping Use: Never Used Second Hand Smoke Exposure: No service: No Current occupational status: employed Cognitive needs: No Hearing needs: No Vision needs: Yes (glasses ) Meds Allergies Allergy/AdvReac Type Severity Reaction Status Date / Time dexlansoprazole (From Allergy Intermediate Stomach Verified 05/31/25 12:50 Dexilant) Upset Home Medications ?Medication ?Instructions ?Recorded ?Confirmed ?Last Taken ?Type amlodipine 10 mg tablet 10 mg PO DAILY 06/28/2305/21 Unknown History Exam Narrative Narrative: EKG 04/2025 Vent. Rate : 57 BPM Atrial Rate : 57 BPM P-R Int : 162 ms QRS Dur : 82 ms QT Int : 392 ms P-R-T Axes : 83 21 43 degrees QTcB Int : 381 ms Sinus bradycardia Otherwise normal ECG When compared with ECG of 23-Feb-2021 08:34, ST less elevated in Anterior leads Assessment and Plan Final Anesthetic Review Family History of Problems with Anesthesia: No History of Problems with Anesthesia: No
[2025-06-17 09:26] VITALS: BMI 23.3
--- NOTE | 2025-06-18 10:32 | HO.ANESPROP2 ---
HPI - Anesthesia Eval Consult details Narrative: 75 yr old for cystoscopy, bladder biopsy, prostate needle biopsy S/P total right hip arthroplasty by Dr. Stevens in March 2021 CAD: s/p coronary artery stent 2010; no recent symptoms per PCP note 05/31/25, medically managed, no recent nitro use. Cardiac murmur: Echocardiogram done back in August 2022 revealed (+) normal left ventricular systolic function with a calculated ejection fraction of 62%. There is moderate to severe focal septal hypertrophy BUT no obvious valvular pathology seen CKD: now stage 3 PMFSH Active Problems Active Problems: All Active Problems (Updated 06/17/25 @ 09:23 by Lorena Tillman RN) Preoperative clearance (Acute) Pre-operative cardiovascular exam, new EKG abnormalities c/w ischemia (Acute) Hip abductor tendonitis (Acute) Acute lumbar myofascial strain (Acute) Impacted cerumen of both ears (Acute) Hearing loss (Acute) Renal insufficiency (Acute) Screening PSA (prostate specific antigen) (Acute) BPH (benign prostatic hyperplasia) (Acute) Microscopic hematuria (Acute) Lumbar radiculopathy (Acute) Elevated PSA (Acute) Cardiac murmur (Acute) Right shoulder pain (Acute) Thrombocytopenia (Acute) Status post total hip replacement, right (Acute) Tick bite (Acute) Tinea pedis (Acute) Coronary artery disease (Acute) Vitamin D deficiency (Acute) Tinnitus, bilateral (Acute) Primary osteoarthritis of knees, bilateral (Acute) Primary osteoarthritis of both hips (Acute) Pancytopenia (Acute) GERD without esophagitis (Acute) Pure hypercholesterolemia (Acute) Benign essential hypertension (Acute) Past Medical History Medical History (Updated 06/17/25 @ 09:23 by Lorena Tillman RN) Cardiac murmur BPH (benign prostatic hyperplasia) CAD (coronary artery disease) Vitamin D deficiency Osteoarthritis of right hip Tick bite of foot Chronic generalized abdominal pain Tinnitus, bilateral Primary osteoarthritis of knees, bilateral Primary osteoarthritis of both hips Pancytopenia GERD without esophagitis Pure hypercholesterolemia Benign essential hypertension Family History Family History Father No problems noted. Mother No problems noted. Family history of problems with anesthesia: No Surgical History Surgical History (Updated 06/17/25 @ 09:14 by Lorena Tillman RN) Hx of bilateral cataract extraction History of right hip replacement (03/22/21) History of esophagogastroduodenoscopy (EGD) Hx of colonoscopy S/P cardiac catheterization S/P right coronary artery (RCA) stent placement History of cardiac catheterization History of Problems with Anesthesia: No Social History Social History Household Members: Spouse Housing: House Are you a primary resident care director to a significant other at home: No Do you presently have visiting nurse or other home services: No Alcohol intake: current Alcohol intake frequency: does not drink Alcohol type: wine Patient Tobacco Use Status: Never used Tobacco e-Cigarette/Vaping Use: Never Used Second Hand Smoke Exposure: No service: No Current occupational status: employed Cognitive needs: No Hearing needs: No Vision needs: Yes (glasses ) Meds Allergies Allergy/AdvReac Type Severity Reaction Status Date / Time dexlansoprazole (From Allergy Intermediate Stomach Verified 05/31/25 12:50 Dexilant) Upset Home Medications ?Medication ?Instructions ?Recorded ?Confirmed ?Last Taken ?Type amlodipine 10 mg tablet 10 mg PO DAILY 06/28/23 06/17/25 Unknown History Exam Height,Weight and Vital Signs: Height 5 ft 9 in Weight 71.668 kg Pertinent Lab Results Pertinent Lab Results: Laboratory Tests 04/19/25 10:43 WBC 3.9 L RBC 4.14 L Hgb 13.1 L Hct 39.0 L Plt Count 170 Sodium 140 Potassium 4.5 BUN 15 Creatinine 1.35 Narrative Narrative: EKG 04/2025 Vent. Rate : 57 BPM Atrial Rate : 57 BPM P-R Int : 162 ms QRS Dur : 82 ms QT Int : 392 ms P-R-T Axes : 83 21 43 degrees QTcB Int : 381 ms Sinus bradycardia Otherwise normal ECG When compared with ECG of 23-Feb-2021 08:34, ST less elevated in Anterior leads Assessment and Plan Final Anesthetic Review Family History of Problems with Anesthesia: No History of Problems with Anesthesia: No
[2025-06-22] MEDS: Lactated Ringers 1,000 ML 100 ML IVCONT (08:31)
[2025-06-22 08:32] VITALS: BP 133/62; PULSE 60; RESP 18; TEMP 36.6; O2SAT 98
--- NOTE | 2025-06-22 09:11 | MHC.SHP ---
Pre-Procedural Eval Section A - 24 Hr Update-Section A only Date of Service: 06/22/25 The patient has been examined within 24 hours of the surgical procedure. The History & Physical has been completed within 30 days and I have reviewed it.: Yes Section B - Complete if H&P > 30 days Chief Complaint: Elevated[PSA], Atypical cytology Allergies: Allergies Allergy/AdvReac Type Severity Reaction Status Date / Time dexlansoprazole (From Allergy Intermediate Stomach Verified 06/22/25 08:34 Dexilant) Upset Plan Diagnosis/Plan: Unchanged I have reviewed the history and physical and performed a pertinent physical examination on my patient. No changes have occurred unless specified. Cystoscopy, bladder biopsy. Transrectal Ultrasound guided biopsy of the prostate. Discussed risks to include but not limited to pain, blood in stool, urine and semen, septicemia, need to repeat biopsy. Time Spent With Patient Time: Total time managing care of this patient today ____ minutes.
--- NOTE | 2025-06-22 10:44 | PC.NURSE ---
Dr. Little updated that patient had used his nitroglycerin one week ago for chest pain. reviewed all cardiology notes and spoke with dr. avelar regarding asprin being stopped 10 days ago for surgery. Decision made to cancel procedure today. patient educated by doctors about resuming aspirin and seeing transformer stock clerk to have clearance before surgery reschedule. IV removed. patient left will all belongings and signed belongings sheet in chart. family updated and meeting patient in lobby.
== END ==
PROVIDERS: PCP Internal Medicine; Visit Provider Urology
DX: N40.0 Benign prostatic hyperplasia without lower urinary tract symptoms (principal); R97.20 Elevated prostate specific antigen [PSA]; Z53.8 Procedure and treatment not carried out for other reasons; I25.10 Atherosclerotic heart disease of native coronary artery without angina pectoris; Z95.5 Presence of coronary angioplasty implant and graft; Z79.82 Long term (current) use of aspirin
CPT/HCPCS: J1956

== ENCOUNTER 2025-07-13 08:17 | Day surgery (SDC) | payer MEDICARE, SELFPAY ==
--- OUTSIDE RECORDS SUMMARY | 2025-07-05 16:48 | XMS_ITS | Patient Health Record ---
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 Supervisor Name Role Phone Jian SOTO, [place] Primary Care Provider Unava ilable Golden Ann Unavailable [phone] Reason For Referral No Information Medications Medication [...] Problem Status W/U Status Risk Notes Problem [id number] Encounter for screening for malignant neoplasm of colon (Z12.11) Active confirmed Problem [id number] History of adenomatous polyp of colon (Z86.010) Active confirmed Problem [id number] Abdominal cramps (R10.9) Active confirmed Plan Of Treatment Future Test Test Name Order Date COLONOSCOPY 08/10/2011 COLONOSCOPY 09/06/2017 Insurance Providers Payer Name Payer Address Payer Phone Subscriber Number Group Number Insured Name Patient Relationship to Insured Coverage Start Date Coverage End Date [facility] [employer] [facility] [address] [place] [address] [id number] Self - patient is the insured Medical (General) History Medical History History ICD Code Coronary artery disease-he d escribes placement of a coronary artery stent with associated angioplasty in February 2011; he denies any associated heart attack. He also had a coronary artery stent placed 2007 in [place]. He sees Dr. Ortiz at [facility]--he reports a negative ETT and Cardiac ECHO in early 08/2017 Hyperlipidemia Hypertension He denies a history of stroke,lung disea se, diabetes nor kidney disease Colonoscopy 04/2012--1 small tubular lefty vinny removed Surgical History Surgery Date(Month/Year) none
--- NOTE | 2025-07-09 10:28 | HO.ANESPROP2 ---
Documented by User: Nae Hallman NP 07/09/25 10:29 HPI - Anesthesia Eval Consult details Narrative: 75 yr old for cystoscopy, bladder biopsy, prostate needle biopsy, now scheduled for 07/13/25 S/P total right hip arthroplasty by Dr. Stevens in March 2021 CAD: s/p coronary artery stent 2010; no recent symptoms per PCP note 05/31/25, medically managed, no recent nitro use. Cardiac murmur: Echocardiogram done back in August 2022 revealed (+) normal left ventricular systolic function with a calculated ejection fraction of 62%. There is moderate to severe focal septal hypertrophy BUT no obvious valvular pathology seen CKD: now stage 3 PMFSH Active Problems Active Problems: All Active Problems (Updated 06/17/25 @ 09:23 by Lorena Tillman RN) Preoperative clearance (Acute) Pre-operative cardiovascular exam, new EKG abnormalities c/w ischemia (Acute) Hip abductor tendonitis (Acute) Acute lumbar myofascial strain (Acute) Impacted cerumen of both ears (Acute) Hearing loss (Acute) Renal insufficiency (Acute) Screening PSA (prostate specific antigen) (Acute) BPH (benign prostatic hyperplasia) (Acute) Microscopic hematuria (Acute) Lumbar radiculopathy (Acute) Elevated PSA (Acute) Cardiac murmur (Acute) Right shoulder pain (Acute) Thrombocytopenia (Acute) Status post total hip replacement, right (Acute) Tick bite (Acute) Tinea pedis (Acute) Coronary artery disease (Acute) Vitamin D deficiency (Acute) Tinnitus, bilateral (Acute) Primary osteoarthritis of knees, bilateral (Acute) Primary osteoarthritis of both hips (Acute) Pancytopenia (Acute) GERD without esophagitis (Acute) Pure hypercholesterolemia (Acute) Benign essential hypertension (Acute) Past Medical History Medical History Cardiac murmur BPH (benign prostatic hyperplasia) CAD (coronary artery disease) Vitamin D deficiency Osteoarthritis of right hip Tick bite of foot Chronic generalized abdominal pain Tinnitus, bilateral Primary osteoarthritis of knees, bilateral Primary osteoarthritis of both hips Pancytopenia GERD without esophagitis Pure hypercholesterolemia Benign essential hypertension Family History Family History Father No problems noted. Mother No problems noted. Family history of problems with anesthesia: No Surgical History Surgical History Hx of bilateral cataract extraction History of right hip replacement (03/22/21) History of esophagogastroduodenoscopy (EGD) Hx of colonoscopy S/P cardiac catheterization S/P right coronary artery (RCA) stent placement History of cardiac catheterization History of Problems with Anesthesia: No Social History Social History Household Members: Spouse Housing: House Are you a primary progressive care nurse to a significant other at home: No Do you presently have visiting nurse or other home services: No Alcohol intake: current Alcohol intake frequency: does not drink Alcohol type: wine Patient Tobacco Use Status: Never used Tobacco e-Cigarette/Vaping Use: Never Used Second Hand Smoke Exposure: No Use of substances other than those prescribed or required for medical reasons: No Are you DNR?: No Advance Directives: No Advance Directives Information Provided: Yes service: No Current occupational status: employed Cognitive needs: No Hearing needs: No Vision needs: Yes (glasses ) Meds Allergies Allergy/AdvReac Type Severity Reaction Status Date / Time dexlansoprazole (From Allergy Intermediate Stomach Verified 07/13/25 08:28 Dexilant) Upset Home Medications ?Medication ?Instructions ?Recorded ?Confirmed ?Last Taken ?Type amlodipine 10 mg tablet 10 mg PO DAILY 06/28/23 07/13/25 07/13/25 07:30 History Assessment and Plan Final Anesthetic Review Family History of Problems with Anesthesia: No History of Problems with Anesthesia: No Documented by User: Yoni Kumar MD 07/13/25 09:42 [facility] Past Medical History Medical History Cardiac murmur BPH (benign prostatic hyperplasia) CAD (coronary artery disease) Vitamin D deficiency Osteoarthritis of right hip Tick bite of foot Chronic generalized abdominal pain Tinnitus, bilateral Primary osteoarthritis of knees, bilateral Primary osteoarthritis of both hips Pancytopenia GERD without esophagitis Pure hypercholesterolemia Benign essential hypertension Family History Family History Father No problems noted. Mother No problems noted. Surgical History Surgical History Hx of bilateral cataract extraction History of right hip replacement (03/22/21) History of esophagogastroduodenoscopy (EGD) Hx of colonoscopy S/P cardiac catheterization S/P right coronary artery (RCA) stent placement History of cardiac catheterization Social History Social History Household Members: Spouse Housing: House Are you a primary progressive care nurse to a significant other at home: No Do you presently have visiting nurse or other home services: No Alcohol intake: current Alcohol intake frequency: does not drink Alcohol type: wine Patient Tobacco Use Status: Never used Tobacco e-Cigarette/Vaping Use: Never Used Second Hand Smoke Exposure: No Use of substances other than those prescribed or required for medical reasons: No Are you DNR?: No Advance Directives: No Advance Directives Information Provided: Yes service: No Current occupational status: employed Cognitive needs: No Hearing needs: No Vision needs: Yes (glasses ) Meds Allergies Allergy/AdvReac Type Severity Reaction Status Date / Time dexlansoprazole (From Allergy Intermediate Stomach Verified 07/13/25 08:28 Dexilant) Upset Home Medications ?Medication ?Instructions ?Recorded ?Confirmed ?Last Taken ?Type amlodipine 10 mg tablet 10 mg PO DAILY 06/28/23 07/13/25 07/13/25 07:30 History Exam Airway Mallampati Class: I TM Dist: <=3cm Neck ROM: Full Loose/Missing/Broken Teeth: No Heart: ok. see above. Lungs: ok Assessment and Plan Assessment Anesthesia Assessment: Anesthesia Plan Discussed and Chart Reviewed Final Anesthetic Review NPO: Yes ASA Class: III Final Preanesthetic Review: No Changes in Pt Med Stat, Meds/Allgs Chart Reviewed, Consent Obtained/Reviewed and Anes Risks/Benef Reviewed Patient Risk: Intermediate Procedure Risk: Low Anesthetic Plan Anesthetic Plan: GA and Agree w/ Assess. and Plan Disposition: Standard PACU
[2025-07-09 12:03] VITALS: BMI 25.0
[2025-07-13 08:28] VITALS: BMI 23.6
[2025-07-13 08:48] VITALS: BP 124/57; PULSE 52; RESP 15; TEMP 36.4; O2SAT 99
[2025-07-13] MEDS: Lactated Ringers 1,000 ML 100 ML IVCONT (08:49)
--- NOTE | 2025-07-13 09:37 | MHC.SHP ---
Pre-Procedural Eval Section A - 24 Hr Update-Section A only Date of Service: 07/13/25 The patient is an INPATIENT: No The patient has been examined within 24 hours of the surgical procedure. The History & Physical has been completed within 30 days and I have reviewed it.: Yes Section B - Complete if H&P > 30 days Chief Complaint: Elevated prostate specific antigen, hematuria Allergies: Allergies Allergy/AdvReac Type Severity Reaction Status Date / Time dexlansoprazole (From Allergy Intermediate Stomach Verified 07/13/25 08:28 Dexilant) Upset Plan Diagnosis/Plan: Unchanged I have reviewed the history and physical and performed a pertinent physical examination on my patient. No changes have occurred unless specified. Cystoscopy. Transrectal Ultrasound guided prostate biopsy. Discussed risks to include but not limited to pain, blood in stool, urine and semen, septicemia, need to repeat biopsy. Time Spent With Patient Time: Total time managing care of this patient today ____ minutes.
--- NOTE | 2025-07-13 09:38 | P.OP_ITS ---
Operative Note Operative Note Date of Service: 07/13/25 Narrative: PreOperative Diagnosis:? ? Elevated PSA, microscopic hematuria, atypical urine cytology Post Operative Diagnosis:??Elevated PSA, microscopic hematuria, atypical urine cytology Procedure:?1. Transrectal ultrasound guided biopsy of the prostate 12 core 2. Transrectal ultrasound measurement of prostate 3. Cystoscopy bladder biopsies Surgeon:?Dr Mary Lemons Anesthesia:? General Indications for procedure: Elevated PSA, persistent microscopic hematuria, atypical urine cytology Procedure: Preoperative antibiotics confirmed. After informed consent was verified the patient was placed on the OR table in supine position general anesthesia was instituted. The patient was repositioned into lithotomy position, prepped and draped in the usual sterile fashion. Time-out was done per protocol. A 22 fr cystoscope was placed transurethrally into the bladder. The bulbous urethra was within normal limits. The prostatic urethra noted trilobar enlargement with an obstructive median lobe. The bladder was vis ualized with the 30 degree lens there were mild to moderate trabeculations noted. The 70 degree lens was used to allow adequate visualization of the trigone. There were no papillary intrinsic lesions noted. There was an area on the right lateral wall tiny erythematous irregular flattened. Biopsies were then done of the irregular area noted on the right lateral wall, random bladder biopsy posterior wall, random bladder biopsy left lateral wall. The Bulbee electrode was used to obtain adequate hemostasis. The cystoscope was removed. The patient was placed left lateral position. Digital rectal exam performed iodine mixed with lubricant jelly 30 cc placed per rectum. Ultrasound probe was placed per rectum. The prostate was visualized. The prostate was measured width 4.67 cm, height 6.08 cm, length 5.28 cm with a volume of 78.6 mL. A 12 core biopsy was performed from the left base, left mid, left apex and right base, mid, apex 2 biopsies from each section. The ultrasound probe was removed and digital palpation of the prostate for 1-2 minutes for hemostasis was performed. The patient tolerated the procedure well. Complications: None EBL: minimal (<5 mL) Drains: none
[2025-07-13 11:00] VITALS: BP 126/69; PULSE 63; RESP 14; TEMP 36.1; O2SAT 98
[2025-07-13 11:05] VITALS: BP 125/63; PULSE 64; RESP 16; O2SAT 100
[2025-07-13 11:10] VITALS: BP 124/64; PULSE 60; RESP 14; O2SAT 100
[2025-07-13 11:58] VITALS: BP 142/73; PULSE 56; RESP 16; TEMP 36.1; O2SAT 99
== END 2025-07-13 12:26 | disposition home or self-care (01) ==
PROVIDERS: PCP Internal Medicine; Visit Provider Urology
PROC: (CPT 55700; principal; 2025-07-13 09:50)
PROC: (CPT 52204; 2025-07-13 09:50)
DX: C61 Malignant neoplasm of prostate (principal); R31.29 Other microscopic hematuria; N32.9 Bladder disorder, unspecified
CPT/HCPCS: 52204; 55700; 76942; 88305; J1956; J2003; J2704; J3010

== ENCOUNTER → 2025-07-13 08:17 | Outpatient (BNV) | payer MEDICARE, SELFPAY | PROVIDERS: PCP Internal Medicine; Visit Provider Urology | DX: R97.20 Elevated prostate specific antigen [PSA] (principal); R31.1 Benign essential microscopic hematuria | CPT/HCPCS: 52204; 55700; 76872; 76942 ==

== ENCOUNTER → 2025-07-16 09:47 | Outpatient (BNVA) | payer MEDICARE, SELFPAY | PROVIDERS: PCP Internal Medicine; Visit Provider Urology | DX: Z46.6 Encounter for fitting and adjustment of urinary device (principal); N40.0 Benign prostatic hyperplasia without lower urinary tract symptoms | CPT/HCPCS: 51700; 51798 ==

== ENCOUNTER 2025-07-21 13:50 | Outpatient (AMB) | payer MEDICARE, SELFPAY ==
--- NOTE | 2025-07-21 14:00 | A.OFFVIS_ITS ---
Intake Visit Reasons: Prostate Biopsy results Intake Note: Patient is present for prostate biopsy results Urology Med: None Antibiotic Allergy:None Blood Thinner: Aspirin Pearl Fisherman Required: No Accompanied by: Self / Same As Patient Allergies dexlansoprazole (From Dexilant) Allergy (Intermediate, Verified 07/21/25 14:02) Stomach Upset Medication List - Last Reconciled 07/21/25 by Mary Lemons MD acetaminophen 650 mg (2 x 325 mg) PO Q6H PRN 30 days amlodipine 10 mg PO DAILY aspirin 81 mg PO DAILY 90 days cholecalciferol (vitamin D3) 50 mcg PO DAILY 90 days ciprofloxacin HCl (Cipro) 500 mg PO BID 5 days clotrimazole-betamethasone 1-0.05 % 1 appl topical BID 2 weeks finasteride (Proscar) 5 mg PO DAILY isosorbide mononitrate ER 120 mg PO DAILY 90 days metoprolol succinate ER 100 mg PO DAILY 90 days nitroglycerin 0.4 mg sublingual DIRECTED pantoprazole 40 mg PO DAILY 90 days rosuvastatin 20 mg PO DAILY 90 days HPI Comments Details: 07/21/25--Yamil is a 75-year-old male status post prostate biopsy for elevated PSA on 07/13/2025 also bladder biopsy was done due to atypical cytology. Results reviewed prostate biopsies for positive cores on the right side Willis score 3+3=6 --group 1 Bladder biopsies negative for malignancy. 30 minutes spent in review of records pertaining to this visit and including [id number] discussion with the patient and documentation of this visit. History of Present Illness The patient is a 75-year-old male presenting with follow-up on prostate and bladder biopsy results and management of prostate cancer. The patient underwent a prostate biopsy due to elevated PSA levels, which revealed 4 positive cores on the right side with a [place] score of 6, grade group 1, indicating early-stage prostate cancer. The bladder biopsy was negative for malignancy, providing some reassurance regarding bladder health. The current management plan involves active surveillance, as the cancer is in its early stages and falls into the least aggressive category. The patient is advised to undergo an MRI and repeat blood work in six months to monitor any changes in the prostate. The patient will start on finasteride 5 mg daily. Additionally, gene testing of the biopsy tissue will be conducted to ensure the cancer cells are not of an aggressive type. Results - Prostate biopsy: 4 positive cores, [place] score 6, grade group 1 - Bladder biopsy: Negative for malignancy Plan 1. Prostate Cancer, [place] Score 6, Grade Group 1 - Active surveillance with MRI and PSA blood work in six months - Initiate finasteride 5 mg daily - Gene testing, Polaris of biopsy tissue to assess aggressiveness of cancer cells 04/22/25--Yamil is a 74-year-old male who presents to the office for elevated PSA follow-up. I have discussed PSA results. Persistent microscopic hematuria, repeat urine cytology - atypical cytology, Plan outpatient cystoscopy bladder biopsies, elevated PSA, TRUS -prostate biopsies. History of Present Illness - The patient is a 74-year-old male presenting with follow-up for Benign Prostatic Hyperplasia and elevated PSA. - Benign Prostatic Hyperplasia (BPH) has been monitored due to an enlarged prostate with an estimated volume of 106 grams, significantly above the average of 30 grams. - The patient has an elevated PSA level of 4.17, which has been stable - Persistent microscopic hematuria was noted, with urine cytology showing atypical cells, prompting further investigation. - A renal ultrasound revealed kidneys within normal limits, with a small cyst in the left kidney and no stones. - The patient reports good urinary flow without the need to strain, and he drinks approximately two liters of water daily. - Nocturia is limited to once per night, and the patient has not experienced significant urinary symptoms warranting medication intervention. Results - PSA level: 4.17 (measured on 04/19/25) - Urine cytology: Atypical cells present - Renal ultrasound (04/19/25): Kidneys within normal limits, small cyst in left kidney, no stones Plan outpatient cystoscopy bladder biopsies, elevated PSA, TRUS -prostate biopsies. Labs: 04/19/25--PSA--4.17 ng/mL 10/17/24--PSA- 3.63. 11/13/24--Yamil is a 74-year-old male who presents to the office for elevated PSA follow-up. I have discussed PSA results. PSA-10/17/24--3.63. Discussed reevaluate- US retroperitoneal, repeat PSA. UA persistent microscopic hematuria. Plan urine cytology. 11/14/23-The patient was initially evaluated on 03/07/2023--seen as a new patient evaluation for elevated PSA. states voiding well. Denies obstructive or irritative voiding symptoms. Cont PSA screening. Past medical history is significant for hypertension and coronary artery disease. He is status post cardiac catheter stent in 2007 and 2010. Had angioplasty done on 09 February 2023 which was within normal limits. The patient is taking aspirin 81 mg regularly. He has been following with another urology in the past. He had a PSA done on 11/12/22, which was elevated Denies family history of prostate cancer. PSA results ?11/12/22?13.048. Repeat PSA results reviewed--03/22/23-- 1.81. 03/07/23-- Prostate exam-- Prostate is mildly enlarged and irregular AUA symptom score-- 2. Renal US results reviewed-- Kidneys: WNL, estimated prostate volume noted-101 mL. PFSH Medical History Cardiac murmur BPH (benign prostatic hyperplasia) CAD (coronary artery disease) Vitamin D deficiency Osteoarthritis of right hip Tick bite of foot Chronic generalized abdominal pain Tinnitus, bilateral Primary osteoarthritis of knees, bilateral Primary osteoarthritis of both hips Pancytopenia GERD without esophagitis Pure hypercholesterolemia Benign essential hypertension Surgical History Hx of bilateral cataract extraction History of right hip replacement (03/22/21) History of esophagogastroduodenoscopy (EGD) Hx of colonoscopy S/P cardiac catheterization S/P right coronary artery (RCA) stent placement History of cardiac catheterization Family History Father No problems noted. Mother No problems noted. Social History Household Members: Spouse Housing: House Are you a primary hospice care consultant to a significant other at home: No Do you presently have visiting nurse or other home services: No Alcohol intake: current Alcohol intake frequency: does not drink Alcohol type: wine Patient Tobacco Use Status: Never used Tobacco e-Cigarette/Vaping Use: Never Used Second Hand Smoke Exposure: No service: No Current occupational status: employed Cognitive needs: No Hearing needs: No Vision needs: Yes (glasses ) Review of Systems Const All systems reviewed & are unremarkable except as noted in HPI and below Reports no additional complaints Eyes Reports no additional complaints ENT Reports no additional complaints Card Reports no additional complaints Resp Reports no additional complaints GI Reports no additional complaints Reports as per HPI Musc Reports no additional complaints Skin/Breast Reports system reviewed and no additional complaints, except as documented Neuro Reports no additional complaints Psych Reports no additional complaints Endo Reports no additional complaints Blake/Lymph Reports no additional complaints Aller/Immun Reports no additional complaints Results Reviewed Results Reviewed: Collected: 07/13/25 Location: [facility] Received: 07/13/25 Diagnosis A. Prostate, left base lateral, core biopsy: Benign prostatic tissue. B. Prostate, left base medial, core biopsy: Benign prostatic tissue. C. Prostate, left mid lateral, core biopsy: Benign prostatic tissue. D. Prostate, left mid medial, core biopsy: Benign prostatic tissue. E. Prostate, left apex lateral, core biopsy: Atypical small acinar proliferation (ANGELICA). F. Prostate, left apex medial, core biopsy: Benign prostatic tissue. G. Prostate, right base lateral, core biopsy: Benign prostatic tissue. H. Prostate, right base medial, core biopsy: Benign prostatic tissue. I. Prostate, right mid lateral, core biopsy: Prostatic adenocarcinoma, Willis score 3+3=6 (Grade group 1), involving 5% of the tissue core. J. Prostate, right mid medial, core biopsy: Prostatic adenocarcinoma, Willis score 3+3=6 (Grade group 1), involving 15% of the tissue core. K. Prostate, right apex lateral, core biopsy: Prostatic adenocarcinoma, Willis score 3+3=6 (Grade group 1), involving 15% of the tissue core. L. Prostate, right apex medial, core biopsy: Prostatic adenocarcinoma, Willis score 3+3=6 (Grade group 1), involving 33% of the tissue core. M. Bladder, right lateral wall lesion, biopsy: Benign urothelial mucosa with reactive epithelial changes. N. Bladder, random posterior wall, biopsy: Benign urothelial mucosa. O. Bladder, left lateral wall, biopsy: Benign urothelial mucosa. Data synopsis - Prostate needle biopsy Histologic type: Acinar adenocarcinoma Histologic grade: [place] score: 3+3=6 (I, J, K,L) % of pattern 4: N/A % of pattern 5: N/A Grade group: 1 Tumor quantitation: Number cores positive: 4 Total number of cores: 15 % of tissue involved: See above for details Periprostatic fat inv.: Not identified Seminal vesicle inv.: Not identified Perineural inv.: Not identified LVI: Not identified Clinical History Patient: Yamil Agrawal Age/Sex: 75/M MR#: [id number] Date of Service: 04/19/25 EXAMINATION: US RETROPERITONEUM HISTORY: N40.0 - Benign prostatic hyperplasia without lower urinary tract symptoms TECHNIQUE: Real-time grayscale ultrasound imaging of the kidneys was performed and images were reviewed. COMPARISON: Comparison is made with the prior examination dated 03/22/2023. FINDINGS: Right kidney: The right kidney measures 9.6 x 5.2 x 4.7 cm. Renal parenchymal echotexture and thickness are normal. There are no masses. There is no hydronephrosis or renal calculi. Left Kidney: The left kidney measures 10.1 x 4.5 x 5.4 cm. Renal parenchymal echotexture and thickness are normal. There is a 7 x 6 x 7 mm cyst at the lower pole. There is no hydronephrosis or renal calculi. The urinary bladder is unremarkable. Bilateral ureteral jets are identified. Before voiding, the urinary bladder measured 7.4 x 9.7 x 6.0 cm, for an estimated volume of 226 mL. After voiding, the urinary bladder measured 2.7 x 5.0 x 2.6 cm, for an estimated volume of 18 mL. The prostate measures 6.0 x 6.0 x 5.6 cm, for an estimated volume of 106 mL. IMPRESSION: 1. 7 mm left lower pole renal cyst. 2. Post void bladder residual of 18 mL. 3. Enlarged prostate. Date of Service: 03/22/23 EXAMINATION: US RETROPERITONEAL COMPLETE (RENAL) CLINICAL INFORMATION: Other microscopic hematuria. COMPARISON: CT abdomen and pelvis 08/07/2021. TECHNIQUE: Real-time imaging of the kidneys and bladder. FINDINGS: RIGHT KIDNEY: 9.0 x 4.0 x 5.1 cm (SAG x AP x TRV). The kidney is normal in size, contour, and echogenicity. Renal cortical thickness is normal. No calculi or focal parenchymal lesions. No hydronephrosis. LEFT KIDNEY: 9.3 x 3.9 x 4.3 cm (SAG x AP x TRV). The kidney is normal in size, contour, and echogenicity. Renal cortical thickness is normal. No calculi or focal parenchymal lesions. No hydronephrosis. BLADDER: Well distended and normal. Bilateral ureteral jets are demonstrated. Prevoid bladder volume is 177 mL. Postvoid bladder volume is 10 mL. There are bladder wall trabeculations. ADDITIONAL FINDINGS: Prostate dimensions are 6.3 x 5.5 x 5.5 cm (volume 101.0 mL). IMPRESSION: ? 1. Unremarkable ultrasound appearance of the bilateral kidneys. ? 2. There is prostatomegaly. ? 3. There is bladder wall hypertrophy. Assessment & Plan Assessment & Plan (1) Adenocarcinoma of prostate: Code(s): C61 - Malignant neoplasm of prostate Category: Medical (2) Atypical small acinar proliferation of prostate: Code(s): N42.32 - Atypical small acinar proliferation of prostate Category: Medical Plan Plan 1. Prostate Cancer, Willis Score 6, Grade Group 1 - Active surveillance with MRI and PSA blood work in six months - Initiate finasteride 5 mg daily - Gene testing, Polaris of biopsy tissue to assess aggressiveness of cancer cells Orders: Orders PSA,Total (Free>4and<10) 5 Months C61 - Malignant neoplasm of prostate, N42.32 - Atypical small acinar proliferation of prostate MR Prostate wo/w con 6 Months C61 - Malignant neoplasm of prostate, N42.32 - Atypical small acinar proliferation of prostate Medications: New finasteride (Proscar) 5 mg PO DAILY 90 tabs 3RF Patient Instructions: The patient had an opportunity to ask questions regarding treatment plan. The patient expressed understanding and agreement with the above treatment plan. The patient is aware they should contact our office by phone for worsening of their current condition or the appearance of new symptoms. Compliance is encouraged with any medications and followup testing that is ordered. It is a privilege to be allowed the opportunity to participate in the urologic care of your patient. If you have any questions or concerns regarding treatment for the above conditions please do not hesitate to contact me. The office telephone contact is [phone]. This note is constructed in part using voice recognition software. While every effort has been made to ensure accuracy one piece expansion maker hand errors may have been included. Yours sincerely, Mary Lemons MD Scribe Plan - Not visible on output: Patient was informed and verbally consented to the use of an ambient scribe for clinic note documentation during this visit. Coding Level of Care Code Est Pt Level 4 (55976) Complex EM visit Add On G2211 Diagnoses Adenocarcinoma of prostate C61 Atypical small acinar proliferation of prostate N42.32
== END 2025-07-21 14:50 | disposition home or self-care (01) ==
LOC: HO.HUSH 13:51
PROVIDERS: PCP Internal Medicine; Visit Provider Urology
DX: C61 Malignant neoplasm of prostate (principal); N42.32 Atypical small acinar proliferation of prostate; Z13.9 Encounter for screening, unspecified
CPT/HCPCS: 99214; G2211

== ENCOUNTER → 2025-07-21 13:50 | Outpatient (BNVA) | payer MEDICARE, SELFPAY | PROVIDERS: PCP Internal Medicine; Visit Provider Urology | DX: C61 Malignant neoplasm of prostate (principal); N42.32 Atypical small acinar proliferation of prostate | CPT/HCPCS: 81003; 99212 ==